=== PATIENT | female | born 1965 | race Caucasian/White ===

== ENCOUNTER 2016-11-16 18:54 | Inpatient (IN) | payer OTHER ==
[~2016-11-16] VITALS: Ht 157.5 cm; Wt 60.0 kg
[~2016-11-16 18:54] MED LIST: ALBU18 IN; BUDE0.253 NEB; FAM20T GT; IPRIH INH; LEVO25TA49 PO; MONT5CHW17 PO
[2016-11-17 04:17] LABS: Basophils # (auto) 0 uL; Basophils % (auto) 0.4 % (0.0-2.0); Eosinophils # (auto) 0.2 uL; Hematocrit 33.3 % (36.0-46.0); Hemoglobin 10.8 g/dL (12.2-16.2); Lymphocytes # (auto) 2.2 uL; Lymphocytes % (auto) 29.2 % (10.0-50.0); Mean Corpuscular Hemoglobin 30.3 pg (28.0-32.0); Mean Corpuscular Hgb Conc. 32.5 g/dL (32.0-36.0); Mean Corpuscular Volume 93.1 fL (80.0-100.0); Mean Platelet Volume 7.9 fL (7.4-10.4); Monocytes # (auto) 0.5 uL; Monocytes % (auto) 6.8 % (0.0-12.0); Neutrophils # (auto) 4.6 uL; Neutrophils % (auto) 61.6 % (37.0-80.0); Platelet Count (auto) 396 10^3/uL (140-450); Red Cell Distribution Width 16.4 % (11.6-16.0); White Blood Cell 7.5 10^3/uL (4.4-10.8)
[2016-11-17 04:28] LABS: Albumin 3.5 g/dL (3.4-5.0); BUN/Creatinine Ratio 31.4; Bilirubin, Total 0.2 mg/dL (0.2-1.0); Calcium 9.7 mg/dL (8.5-10.1); Potassium 3.8 mmol/L (3.5-5.1); Total Protein 7.2 g/dL (6.4-8.2)
[2016-11-17] MEDS ORDERED: LEVOFLOXACIN 500MG 100 ML IV ONE (06:15)
[2016-11-17] MEDS ORDERED: LORazepam 2MG/ML-1ML VIAL IV PRN (08:15)
[2016-11-17] MEDS ORDERED: MORPHINE SULF INJ 2 MG/ML SYRINGE 1ML IV PRN ×2 (08:15)
[2016-11-17] MEDS ORDERED: PANTOPRAZOLE SODIUM 40 MG/10 ML VIAL IV ONE (08:15)
[2016-11-17] MEDS ORDERED: ONDANSETRON HCL 4 MG/2 ML VIAL IV PRN (08:15)
[2016-11-17] MEDS ORDERED: NITROGLYCERIN 0.4 MG SL TAB SL PRN (08:15)
[2016-11-17] MEDS: SODIUM CHLORIDE 0.9% 1,000 ML IV SCH ×3 (08:22→09:33)
[2016-11-17] MEDS ORDERED: metroNIDAZOLE 500MG/100ML 100 ML IV ONE (08:30)
[2016-11-17 08:51] LABS: INR 1.03 (0.9-1.15); Partial Thromboplastin Time 27.9 sec (22.64-33.71); Prothrombin Time 11.1 sec (9.37-12.3)
[2016-11-17 09:01] LABS: Urine Bilirubin Negative (Negative); Urine Blood Negative /uL (Negative); Urine Color Yellow (Yellow); Urine Glucose Normal (Normal); Urine Ketone Negative (Negative); Urine Nitrite Negative (Negative); Urine RBC 1 /hpf (0 - 4); Urine Squamous Epithelial Cell FEW /hpf (<5); Urine Urobilinogen Normal (Negative)
[2016-11-17] MEDS ORDERED: LIDOCAINE VISCOUS 2% 15ML UD ONE (09:31)
[2016-11-17] MEDS ORDERED: SODIUM CHLORIDE LOCK 10 ML ONE (09:31)
[2016-11-17] MEDS ORDERED: diphenhdrAMINE HCL 50 MG/1 ML VL ONE (09:32)
[2016-11-17] MEDS: LEVOFLOXACIN 500MG 100 ML IV SCH (10:06)
[2016-11-17] MEDS: fentaNYL CITRATE 100 MCG/2 ML VL ONE ×2 (10:31→10:37)
[2016-11-17] MEDS: MIDAZOLAM HCL 5 MG/ML-1ML VIAL ONE ×2 (10:31→10:37)
[2016-11-17 11:48] LABS: Hematocrit 32.2 % (36.0-46.0); Hemoglobin 10.6 g/dL (12.2-16.2)
[2016-11-17] MEDS: metroNIDAZOLE 500MG/100ML 100 ML IV SCH ×2 (14:00→23:09)
[2016-11-17 18:32] LABS: Hematocrit 32.2 % (36.0-46.0); Hemoglobin 10.5 g/dL (12.2-16.2)
[2016-11-17] MEDS ORDERED: MONT5CHW17 PO (22:37)
[2016-11-17] MEDS ORDERED: MID10T GT (22:37)
[2016-11-17] MEDS ORDERED: Fibersource Hn 1 Liter GT SCH (22:45)
[2016-11-18] VITALS (8 sets, daily range): BP systolic 103–109; BP diastolic 52–79
[2016-11-18] MEDS ORDERED: Fibersource Hn 1 Liter GT SCH (00:15)
[2016-11-18 00:49] LABS: Hematocrit 33.4 % (36.0-46.0); Hemoglobin 10.8 g/dL (12.2-16.2)
[2016-11-18] MEDS ORDERED: GATI0.5S RIGHTEYE (04:53)
[2016-11-18] MEDS ORDERED: MIDODRINE HCL 10 MG TAB PO SCH (06:00)
[2016-11-18 06:18] LABS: Basophils # (auto) 0 uL; Basophils % (auto) 0.3 % (0.0-2.0); Eosinophils # (auto) 0.1 uL; Eosinophils % (auto) 1.6 % (0.0-7.0); Hematocrit 30.9 % (36.0-46.0); Hemoglobin 10.2 g/dL (12.2-16.2); Lymphocytes # (auto) 1.7 uL; Lymphocytes % (auto) 25.6 % (10.0-50.0); Mean Corpuscular Hemoglobin 30.8 pg (28.0-32.0); Mean Corpuscular Volume 93.1 fL (80.0-100.0); Mean Platelet Volume 8.6 fL (7.4-10.4); Monocytes # (auto) 0.5 uL; Monocytes % (auto) 7.1 % (0.0-12.0); Neutrophils # (auto) 4.4 uL; Neutrophils % (auto) 65.4 % (37.0-80.0); Platelet Count (auto) 341 10^3/uL (140-450); Red Cell Distribution Width 16.6 % (11.6-16.0); White Blood Cell 6.7 10^3/uL (4.4-10.8)
[2016-11-18] MEDS: metroNIDAZOLE 500MG/100ML 100 ML IV SCH (06:18)
[2016-11-18 06:40] LABS: Albumin 3.1 g/dL (3.4-5.0); BUN/Creatinine Ratio 31.3; Bilirubin, Total 0.4 mg/dL (0.2-1.0); Potassium 3.9 mmol/L (3.5-5.1); Total Protein 6.5 g/dL (6.4-8.2)
[2016-11-18] MEDS: ALBUTEROL SULF 2.5 MG/0.5ML(0.5%) NEB SOLN NEB SCH ×3 (06:40→13:30)
[2016-11-18] MEDS: IPRATROPIUM BROM 0.5 MG/2.5ML INH SOL NEB SCH ×3 (06:40→13:30)
[2016-11-18] MEDS ORDERED: LEVOTHYROXINE SODIUM 25 MCG TAB PO SCH (07:00)
[2016-11-18] MEDS ORDERED: SODIUM CHLORIDE 0.9% 1,000 ML IV SCH (08:08)
[2016-11-18] MEDS ORDERED: MONTELUKAST SODIUM 10 MG TAB PO SCH (10:00)
[2016-11-18] MEDS ORDERED: PANTOPRAZOLE SODIUM 40 MG/10 ML VIAL IV SCH (10:00)
[2016-11-18] MEDS: LEVOFLOXACIN 500MG 100 ML IV SCH (11:08)
== END 2016-11-18 17:00 | disposition home or self-care (01) | DRG 377 ==
LOC: ER 18:54 → TELE 18:55 → TELE-EAST 11-17 23:40
PROVIDERS: ADMIT Internal Medicine; ATTEND Internal Medicine
PROC: 0DB68ZX Excision of Stomach, Via Natural or Artificial Opening Endoscopic, Diagnostic (ICD-10-PCS; principal; 2016-11-17 10:20)
DX: K92.2 Gastrointestinal hemorrhage, unspecified (principal); J69.0 Pneumonitis due to inhalation of food and vomit; G93.1 Anoxic brain damage, not elsewhere classified; E03.9 Hypothyroidism, unspecified; G51.0 Bell's palsy; R56.9 Unspecified convulsions; Z86.73 Personal history of transient ischemic attack (TIA), and cerebral infarction without residual deficits; Z82.49 Family history of ischemic heart disease and other diseases of the circulatory system; Z93.1 Gastrostomy status; Z88.5 Allergy status to narcotic agent; Z90.49 Acquired absence of other specified parts of digestive tract
CPT/HCPCS: 36415; 71010; 74176; 76705; 76856; 80053; 80061; 81001; 82150; 82378; 83690; 85014; 85018; 85025; 85045; 85610; 85652; 85730; 86141; 86304; 86850; 86900; 86901; 87040; 87081; 87086; 94640; 96365; 96366; 96367; 96375; C9113; J1956; J2250; J3490

== ENCOUNTER 2017-08-29 10:52 | Observation (INO) | payer OTHER ==
[~2017-08-29] VITALS: Ht 167.6 cm; Wt 68.0 kg
[~2017-08-29 10:52] MED LIST changes: +GATI0.5S RIGHTEYE; +MID10T GT
[2017-08-29] MEDS ORDERED: SODIUM CHLORIDE 0.9% 500 ML IVB ONE (11:40)
[2017-08-29 12:22] LABS: Basophils # (auto) 0 uL; Eosinophils # (auto) 0.1 uL; Monocytes # (auto) 0.3 uL; Monocytes % (auto) 5.2 % (0.0-12.0)
[2017-08-29 12:25] LABS: Basophils % (auto) 0.8 % (0.0-2.0); Eosinophils % (auto) 2.3 % (0.0-7.0); Hematocrit 37.3 % (36.0-46.0); Hemoglobin 12.3 g/dL (12.2-16.2); Lymphocytes # (auto) 1.5 uL; Lymphocytes % (auto) 30.2 % (10.0-50.0); Mean Corpuscular Hemoglobin 29.3 pg (28.0-32.0); Mean Corpuscular Hgb Conc. 32.8 g/dL (32.0-36.0); Mean Corpuscular Volume 89.2 fL (80.0-100.0); Neutrophils % (auto) 61.5 % (37.0-80.0); Platelet Count (auto) 516 10^3/uL (140-450); Red Blood Cells 4.18 10^6/uL (4.0-5.20); Red Cell Distribution Width 14.7 % (11.8-14.3)
[2017-08-29 12:38] LABS: INR 0.95 (0.9-1.15); Partial Thromboplastin Time 28.1 sec (22.64-33.71); Prothrombin Time 10.4 sec (9.37-12.3)
[2017-08-29 12:53] LABS: Urine Bacteria NONE SEEN /hpf (None Seen); Urine Blood Negative /uL (Negative); Urine Specific Gravity 1.005 (1.001-1.035); Urine WBC <1 /hpf (0 - 5)
[2017-08-29 12:56] LABS: Magnesium 2.3 mg/dL (1.6-2.6)
[2017-08-29 12:57] LABS: Blood Alcohol < 3.0 mg/dL (0-5)
[2017-08-29 12:59] LABS: Alcohol, Urine < 3.0 mg/dL (0-5); Amphetamine Screen, Urine NEGATIVE (NEGATIVE); Barbiturate Scree,Urine NEGATIVE (NEGATIVE); Benzodiazephine Screen, Urine NEGATIVE (NEGATIVE); Cannabinoid Screen, Urine NEGATIVE (NEGATIVE); Cocaine Screen, Urine NEGATIVE (NEGATIVE); Opiate Scree,Urine NEGATIVE (NEGATIVE); Phencyclidine Screen, Urine NEGATIVE (NEGATIVE)
[2017-08-29 13:57] LABS: BUN/Creatinine Ratio 17.1; Calcium 9.7 mg/dL (8.5-10.1); Potassium 4.4 mmol/L (3.5-5.1)
[2017-08-29 13:58] LABS: Albumin 3.2 g/dL (3.4-5.0); Bilirubin, Total 0.1 mg/dL (0.2-1.0); Total Protein 7.6 g/dL (6.4-8.2)
[2017-08-29] MEDS ORDERED: LEVETIRACETAM INJ 1,000 MG in D5W 5% 100 ML IV ONE (17:30)
[2017-08-29 21:43] VITALS: BP 99/68
== END 2017-08-29 22:07 | disposition short-term general hospital (02) | DRG 101 ==
LOC: EDBD → ER 10:52 → OVERFLOW 11:42 → ER 22:07
PROVIDERS: ADMIT Family Medicine; ATTEND Family Medicine
DX: R56.9 Unspecified convulsions (principal); Z93.1 Gastrostomy status; E03.9 Hypothyroidism, unspecified; I10 Essential (primary) hypertension; J45.909 Unspecified asthma, uncomplicated; K21.9 Gastro-esophageal reflux disease without esophagitis; Z82.49 Family history of ischemic heart disease and other diseases of the circulatory system; Z90.49 Acquired absence of other specified parts of digestive tract
CPT/HCPCS: 36415; 70450; 71046; 80053; 80307; 80320; 81001; 82962; 83735; 85025; 85610; 85730; 96361; 96365; 99291; G0378; J1953; J7040; 93005; J7060

== ENCOUNTER 2017-10-24 04:28 | Emergency (ER) | payer OTHER ==
[~2017-10-24] VITALS: Ht 152.4 cm; Wt 59.0 kg
[2017-10-24] MEDS ORDERED: DEXTROSE 50% SYRINGE 50 ML IV ONE (05:02)
[2017-10-24] MEDS ORDERED: DEXTROSE (50%) 50ML SYRG IV ONE (05:15)
[2017-10-24 06:46] LABS: Basophils # (auto) 0 uL; Basophils % (auto) 0.2 % (0.0-2.0); Eosinophils # (auto) 0.1 uL; Eosinophils % (auto) 1.5 % (0.0-7.0); Hematocrit 30.1 % (36.0-46.0); Hemoglobin 10.1 g/dL (12.2-16.2); Lymphocytes # (auto) 0.9 uL; Lymphocytes % (auto) 13.9 % (10.0-50.0); Mean Corpuscular Hemoglobin 29.8 pg (28.0-32.0); Mean Corpuscular Hgb Conc. 33.8 g/dL (32.0-36.0); Mean Corpuscular Volume 88.2 fL (80.0-100.0); Monocytes # (auto) 0.3 uL; Neutrophils # (auto) 5.3 uL; Neutrophils % (auto) 79.4 % (37.0-80.0); Nucleated Red Blood Cells % 0.1 %; Platelet Count (auto) 164 10^3/uL (140-450); Red Blood Cells 3.41 10^6/uL (4.0-5.20); Red Cell Distribution Width 15.6 % (11.8-14.3); White Blood Cell 6.7 10^3/uL (4.4-10.8)
[2017-10-24 06:49] LABS: Alanine Aminotransferase 45 U/L (13-56); Albumin 2.6 g/dL (3.4-5.0); Anion Gap 8 (5-15); Aspartate Aminotransferase 30 U/L (15-37); BUN/Creatinine Ratio 25.5; Blood Alcohol < 3.0 mg/dL (0-5); Blood Urea Nitrogen 14 mg/dL (7-18); Calcium 8.5 mg/dL (8.5-10.1); Carbon Dioxide 33 mmol/L (21-32); Chloride 85 mmol/L (98-107); GFR African American 149 mL/min; GFR Non-African American 123 mL/min; Glucose 126 mg/dL (74-106); Potassium 4.1 mmol/L (3.5-5.1); Sodium 126 mmol/L (136-145)
[2017-10-24 06:54] LABS: Alkaline Phosphatase 120 U/L (45-117); Bilirubin, Total 0.2 mg/dL (0.2-1.0); Total Protein 6.7 g/dL (6.4-8.2)
[2017-10-24] MEDS ORDERED: SODIUM CHLORIDE 0.9% 1,000 ML IV ONE (07:30)
[2017-10-24 07:32] LABS: Alcohol, Urine < 3.0 mg/dL (0-5); Amphetamine Screen, Urine NEGATIVE (NEGATIVE); Barbiturate Scree,Urine NEGATIVE (NEGATIVE); Benzodiazephine Screen, Urine NEGATIVE (NEGATIVE); Cannabinoid Screen, Urine NEGATIVE (NEGATIVE); Cocaine Screen, Urine NEGATIVE (NEGATIVE); Opiate Scree,Urine NEGATIVE (NEGATIVE); Phencyclidine Screen, Urine NEGATIVE (NEGATIVE); Urine Amorphous Crystal FEW /hpf (None Seen); Urine Bacteria NONE SEEN /hpf (None Seen); Urine Blood Negative /uL (Negative); Urine WBC 1 /hpf (0 - 5)
[2017-10-24 12:03] VITALS: BP 100/66
== END 2017-10-24 12:45 | disposition home or self-care (01) ==
LOC: EDBD → ER 04:33
DX: G40.909 Epilepsy, unspecified, not intractable, without status epilepticus (principal); Q27.30 Arteriovenous malformation, site unspecified; G80.8 Other cerebral palsy; G51.0 Bell's palsy; K80.20 Calculus of gallbladder without cholecystitis without obstruction; E46 Unspecified protein-calorie malnutrition; E87.1 Hypo-osmolality and hyponatremia; D64.9 Anemia, unspecified; Z93.1 Gastrostomy status; J44.9 Chronic obstructive pulmonary disease, unspecified; E78.5 Hyperlipidemia, unspecified
CPT/HCPCS: 36415; 70450; 80053; 80307; 80320; 81001; 82962; 83735; 83880; 84484; 84702; 85025; 93005; 94761; 96361; 96374; 99285; J7042

== ENCOUNTER 2017-10-26 05:02 | Emergency (ER) | payer OTHER ==
[~2017-10-26] VITALS: Ht 152.4 cm; Wt 54.4 kg
[2017-10-26] MEDS ORDERED: ALBUTEROL SULF 2.5 MG/0.5ML(0.5%) NEB SOLN NEB ONE (06:00)
[2017-10-26] MEDS ORDERED: IPRATROPIUM BROM 0.5 MG/2.5ML INH SOL NEB ONE (06:00)
[2017-10-26 06:33] LABS: Basophils # (auto) 0 uL; Basophils % (auto) 0.4 % (0.0-2.0); Eosinophils # (auto) 0.1 uL; Eosinophils % (auto) 1.5 % (0.0-7.0); Hematocrit 32.4 % (36.0-46.0); Hemoglobin 10.8 g/dL (12.2-16.2); Lymphocytes # (auto) 1.1 uL; Lymphocytes % (auto) 25.1 % (10.0-50.0); Mean Corpuscular Hemoglobin 29.4 pg (28.0-32.0); Mean Corpuscular Hgb Conc. 33.5 g/dL (32.0-36.0); Mean Corpuscular Volume 87.8 fL (80.0-100.0); Monocytes # (auto) 0.3 uL; Monocytes % (auto) 7.1 % (0.0-12.0); Neutrophils # (auto) 2.9 uL; Neutrophils % (auto) 65.9 % (37.0-80.0); Nucleated Red Blood Cells % 0.1 %; Platelet Count (auto) 144 10^3/uL (140-450); Red Blood Cells 3.69 10^6/uL (4.0-5.20); White Blood Cell 4.4 10^3/uL (4.4-10.8)
[2017-10-26 06:52] LABS: Alanine Aminotransferase 45 U/L (13-56); Albumin 2.7 g/dL (3.4-5.0); Anion Gap 6 (5-15); Aspartate Aminotransferase 44 U/L (15-37); BUN/Creatinine Ratio 21.6; Blood Alcohol < 3.0 mg/dL (0-5); Blood Urea Nitrogen 11 mg/dL (7-18); Calcium 8.9 mg/dL (8.5-10.1); Carbon Dioxide 34 mmol/L (21-32); Chloride 86 mmol/L (98-107); GFR African American 161 mL/min; GFR Non-African American 133 mL/min; Glucose 54 mg/dL (74-106); Potassium 4.7 mmol/L (3.5-5.1); Sodium 126 mmol/L (136-145)
[2017-10-26 06:57] LABS: Alkaline Phosphatase 117 U/L (45-117); Bilirubin, Total 0.2 mg/dL (0.2-1.0); Total Protein 7.2 g/dL (6.4-8.2)
[2017-10-26 07:40] LABS: Urine WBC None Seen /hpf (0 - 5)
[2017-10-26 08:00] LABS: Alcohol, Urine < 3.0 mg/dL (0-5); Amphetamine Screen, Urine NEGATIVE (NEGATIVE); Barbiturate Scree,Urine NEGATIVE (NEGATIVE); Benzodiazephine Screen, Urine NEGATIVE (NEGATIVE); Cannabinoid Screen, Urine NEGATIVE (NEGATIVE); Cocaine Screen, Urine NEGATIVE (NEGATIVE); Opiate Scree,Urine NEGATIVE (NEGATIVE); Phencyclidine Screen, Urine NEGATIVE (NEGATIVE)
[2017-10-26 08:09] LABS: Urine Amorphous Crystal MANY /hpf (None Seen); Urine Bacteria NONE SEEN /hpf (None Seen); Urine Blood Negative /uL (Negative); Urine Specific Gravity 1.009 (1.001-1.035)
[2017-10-26] MEDS ORDERED: DEXTROSE (50%) 50ML SYRG IV ONE (09:00)
[2017-10-26] MEDS ORDERED: SODIUM CHLORIDE 0.9% 500 ML IV ONE (09:40)
[2017-10-26] MEDS ORDERED: DEXTROSE 10% 1,000 ML IV ONE (12:30)
[2017-10-26 14:11] VITALS: BP 104/66
== END 2017-10-26 14:40 | disposition short-term general hospital (02) ==
LOC: EDBD 05:02 → ER 05:02 → EDUNIT# 05:02 → ER 14:40
DX: G93.41 Metabolic encephalopathy (principal); J44.9 Chronic obstructive pulmonary disease, unspecified; E78.5 Hyperlipidemia, unspecified; E07.89 Other specified disorders of thyroid; Z90.49 Acquired absence of other specified parts of digestive tract; Z88.6 Allergy status to analgesic agent
CPT/HCPCS: 36415; 70450; 71045; 80053; 80307; 80320; 81001; 82962; 83605; 83735; 84484; 85025; 87040; 93005; 94640; 96361; 96374; 99291; J7030; J7042

== ENCOUNTER 2017-11-05 01:50 | Emergency (ER) | payer OTHER ==
[~2017-11-05] VITALS: Ht 162.6 cm; Wt 45.4 kg
[2017-11-05 04:27] LABS: Basophils # (auto) 0 uL; Basophils % (auto) 0.4 % (0.0-2.0); Eosinophils # (auto) 0.1 uL; Eosinophils % (auto) 1.4 % (0.0-7.0); Hematocrit 27.6 % (36.0-46.0); Hemoglobin 9.1 g/dL (12.2-16.2); Lymphocytes # (auto) 0.9 uL; Lymphocytes % (auto) 12.8 % (10.0-50.0); Mean Corpuscular Hemoglobin 30.1 pg (28.0-32.0); Mean Corpuscular Volume 91.2 fL (80.0-100.0); Monocytes # (auto) 0.5 uL; Monocytes % (auto) 6.8 % (0.0-12.0); Neutrophils # (auto) 5.2 uL; Neutrophils % (auto) 78.6 % (37.0-80.0); Nucleated Red Blood Cells % 0.1 %; Platelet Count (auto) 304 10^3/uL (140-450); Red Blood Cells 3.03 10^6/uL (4.0-5.20); Red Cell Distribution Width 17.9 % (11.8-14.3); White Blood Cell 6.7 10^3/uL (4.4-10.8)
[2017-11-05 04:40] LABS: INR 0.93 (0.9-1.15); Partial Thromboplastin Time 27.3 sec (22.64-33.71); Prothrombin Time 10.1 sec (9.37-12.3)
[2017-11-05] MEDS ORDERED: SODIUM CHLORIDE 0.9% 1,000 ML IV ONE (04:45)
[2017-11-05 04:53] LABS: Albumin 2.7 g/dL (3.4-5.0); BUN/Creatinine Ratio 37.7; Bilirubin, Total 0.2 mg/dL (0.2-1.0); Calcium 8.2 mg/dL (8.5-10.1); Potassium 3.8 mmol/L (3.5-5.1); Total Protein 6.3 g/dL (6.4-8.2)
[2017-11-05] MEDS ORDERED: carBAMazepine 200 MG TAB PO ONE (06:45)
[2017-11-05 06:54] LABS: Urine Blood Negative /uL (Negative); Urine Specific Gravity 1.015 (1.001-1.035); Urine WBC 2 /hpf (0 - 5)
[2017-11-05 06:55] LABS: Urine Bacteria None Seen /hpf (None Seen)
[2017-11-05 07:11] LABS: Alcohol, Urine < 3.0 mg/dL (0-5); Amphetamine Screen, Urine NEGATIVE (NEGATIVE); Barbiturate Scree,Urine NEGATIVE (NEGATIVE); Benzodiazephine Screen, Urine NEGATIVE (NEGATIVE); Cannabinoid Screen, Urine NEGATIVE (NEGATIVE); Cocaine Screen, Urine NEGATIVE (NEGATIVE); Opiate Scree,Urine NEGATIVE (NEGATIVE); Phencyclidine Screen, Urine NEGATIVE (NEGATIVE)
[2017-11-05] MEDS ORDERED: MID10T GT (07:55)
[2017-11-05] MEDS ORDERED: OXCA600T3 GT (07:55)
[2017-11-05] MEDS ORDERED: METR500T GT (07:55)
[2017-11-05] MEDS ORDERED: LEVO25TA6 GT (07:55)
[2017-11-05] MEDS ORDERED: OMEP20CA74 GT (07:55)
[2017-11-05] MEDS ORDERED: MONT10TA34 GT (07:55)
[2017-11-05] MEDS ORDERED: SODIUM CHLORIDE 0.9% 500 ML IV ONE (10:00)
[2017-11-05 10:05] VITALS: BP 95/44
== END 2017-11-05 10:22 | disposition short-term general hospital (02) ==
LOC: EDBD 01:50 → ER 01:56
DX: G40.909 Epilepsy, unspecified, not intractable, without status epilepticus (principal); E86.0 Dehydration; E87.1 Hypo-osmolality and hyponatremia; J44.9 Chronic obstructive pulmonary disease, unspecified; K21.9 Gastro-esophageal reflux disease without esophagitis; E78.5 Hyperlipidemia, unspecified; E07.9 Disorder of thyroid, unspecified; G80.9 Cerebral palsy, unspecified; Z90.49 Acquired absence of other specified parts of digestive tract
CPT/HCPCS: 36415; 80053; 80156; 80307; 81001; 82962; 85025; 85610; 85730; 93005; 96360; 96361; 99285; J7030

== ENCOUNTER 2017-11-11 02:15 | Emergency (ER) | payer OTHER ==
[~2017-11-11] VITALS: Ht 157.5 cm; Wt 61.2 kg
[~2017-11-11 02:15] MED LIST changes: -FAM20T GT; -LEVO25TA49 PO; +LEVO25TA6 GT; +METR500T GT; +MONT10TA34 GT; -MONT5CHW17 PO; +OMEP20CA74 GT; +OXCA600T3 GT
[2017-11-11] MEDS ORDERED: AZIT250T7 PO (05:34)
[2017-11-11] MEDS ORDERED: CEFU500T43 PO (05:34)
[2017-11-11] MEDS ORDERED: LEVE500T22 PO (05:36)
[2017-11-11] MEDS ORDERED: SODIUM CHLORIDE 0.9% 1,000 ML IV ONE (07:24)
[2017-11-11 07:46] LABS: Basophils # (auto) 0 uL; Basophils % (auto) 0.3 % (0.0-2.0); Eosinophils # (auto) 0.1 uL; Eosinophils % (auto) 1.6 % (0.0-7.0); Hematocrit 28.3 % (36.0-46.0); Hemoglobin 9.2 g/dL (12.2-16.2); Lymphocytes # (auto) 0.6 uL; Lymphocytes % (auto) 12.2 % (10.0-50.0); Mean Corpuscular Hemoglobin 30.1 pg (28.0-32.0); Mean Corpuscular Hgb Conc. 32.6 g/dL (32.0-36.0); Mean Corpuscular Volume 92.4 fL (80.0-100.0); Monocytes # (auto) 0.3 uL; Monocytes % (auto) 6.2 % (0.0-12.0); Neutrophils # (auto) 4.3 uL; Neutrophils % (auto) 79.7 % (37.0-80.0); Platelet Count (auto) 315 10^3/uL (140-450); Red Blood Cells 3.06 10^6/uL (4.0-5.20); White Blood Cell 5.3 10^3/uL (4.4-10.8)
[2017-11-11 08:06] LABS: INR 0.95 (0.9-1.15); Prothrombin Time 10.3 sec (9.37-12.3)
[2017-11-11 08:21] LABS: Alanine Aminotransferase 26 U/L (13-56); Albumin 2.5 g/dL (3.4-5.0); Alkaline Phosphatase 72 U/L (45-117); Anion Gap 6 (5-15); Aspartate Aminotransferase 19 U/L (15-37); BUN/Creatinine Ratio 30.2; Bilirubin, Total 0.2 mg/dL (0.2-1.0); Blood Urea Nitrogen 13 mg/dL (7-18); Calcium 8.2 mg/dL (8.5-10.1); Carbon Dioxide 30 mmol/L (21-32); Chloride 96 mmol/L (98-107); GFR African American 198 mL/min; GFR Non-African American 163 mL/min; Glucose 114 mg/dL (74-106); Lipase 90 U/L (73-393); Magnesium 2.4 mg/dL (1.6-2.6); Potassium 3.9 mmol/L (3.5-5.1); Sodium 132 mmol/L (136-145); Total Protein 6.3 g/dL (6.4-8.2)
[2017-11-11 09:28] LABS: Urine Bacteria NONE SEEN /hpf (None Seen); Urine Blood Negative /uL (Negative); Urine Specific Gravity 1.009 (1.001-1.035); Urine WBC 4 /hpf (0 - 5)
[2017-11-11 09:47] LABS: Alcohol, Urine < 3.0 mg/dL (0-5); Amphetamine Screen, Urine NEGATIVE (NEGATIVE); Barbiturate Scree,Urine NEGATIVE (NEGATIVE); Benzodiazephine Screen, Urine NEGATIVE (NEGATIVE); Cannabinoid Screen, Urine NEGATIVE (NEGATIVE); Cocaine Screen, Urine NEGATIVE (NEGATIVE); Opiate Scree,Urine NEGATIVE (NEGATIVE); Phencyclidine Screen, Urine NEGATIVE (NEGATIVE)
[2017-11-11] MEDS ORDERED: ONDANSETRON HCL 4 MG/2 ML VIAL IV ONE (10:15)
[2017-11-11] MEDS ORDERED: cefTRIAXone 1GM/10ml IVPUSH 10 ML IV ONE (13:30)
[2017-11-11] MEDS ORDERED: LEVETIRACETAM INJ 1,000 MG in D5W 5% 100 ML IV ONE (13:30)
[2017-11-11] MEDS ORDERED: IPRATROPIUM BROM 0.5 MG/2.5ML INH SOL NEB ONE (13:30)
[2017-11-11] MEDS ORDERED: ALBUTEROL SULF 2.5 MG/0.5ML(0.5%) NEB SOLN NEB ONE (13:30)
[2017-11-11] MEDS ORDERED: SODIUM CHLORIDE 0.9% 500 ML IV ONE (16:30)
[2017-11-11 18:25] VITALS: BP 87/57
== END 2017-11-11 18:48 | disposition short-term general hospital (02) ==
LOC: EDBD 02:15 → ER 02:21
DX: T68.XXXA Hypothermia, initial encounter (principal); J18.9 Pneumonia, unspecified organism; D64.9 Anemia, unspecified; E43 Unspecified severe protein-calorie malnutrition; G40.909 Epilepsy, unspecified, not intractable, without status epilepticus; R53.83 Other fatigue; R53.2 Functional quadriplegia; K21.9 Gastro-esophageal reflux disease without esophagitis; J44.9 Chronic obstructive pulmonary disease, unspecified; E78.5 Hyperlipidemia, unspecified; E07.9 Disorder of thyroid, unspecified; G51.0 Bell's palsy; H40.9 Unspecified glaucoma; E03.9 Hypothyroidism, unspecified; Y99.8 Other external cause status; Y93.89 Activity, other specified; Y92.89 Other specified places as the place of occurrence of the external cause
CPT/HCPCS: 36415; 51702; 70450; 71045; 80053; 80307; 81001; 82962; 83605; 83690; 83735; 83880; 84443; 84484; 85025; 85610; 85730; 87040; 93005; 94640; 94761; 96361; 96365; 96375; 99285; J1953; J2405; J7030; J7060

== ENCOUNTER 2017-12-01 06:24 | Emergency (ER) | payer OTHER ==
[~2017-12-01] VITALS: Ht 157.5 cm; Wt 68.0 kg
[~2017-12-01 06:24] MED LIST changes: +AZIT250T7 PO; +CEFU500T43 PO; +LEVE500T22 PO
[2017-12-01] MEDS ORDERED: SODIUM CHLORIDE 0.9% 1,000 ML IV ONE (08:07)
[2017-12-01 08:36] LABS: Basophils # (auto) 0 uL; Basophils % (auto) 0.4 % (0.0-2.0); Eosinophils # (auto) 0.1 uL; Eosinophils % (auto) 2.4 % (0.0-7.0); Hematocrit 34.2 % (36.0-46.0); Hemoglobin 11.1 g/dL (12.2-16.2); Lymphocytes # (auto) 0.8 uL; Lymphocytes % (auto) 14.4 % (10.0-50.0); Mean Corpuscular Hemoglobin 30.5 pg (28.0-32.0); Mean Corpuscular Hgb Conc. 32.4 g/dL (32.0-36.0); Mean Corpuscular Volume 94.1 fL (80.0-100.0); Monocytes # (auto) 0.4 uL; Monocytes % (auto) 6.7 % (0.0-12.0); Neutrophils # (auto) 4.3 uL; Neutrophils % (auto) 76.1 % (37.0-80.0); Platelet Count (auto) 302 10^3/uL (140-450); Red Blood Cells 3.63 10^6/uL (4.0-5.20); Red Cell Distribution Width 17.1 % (11.8-14.3); White Blood Cell 5.6 10^3/uL (4.4-10.8)
[2017-12-01 08:57] LABS: Albumin 3.1 g/dL (3.4-5.0); Calcium 9.3 mg/dL (8.5-10.1); Magnesium 2.3 mg/dL (1.6-2.6); Potassium 3.8 mmol/L (3.5-5.1)
[2017-12-01 08:59] LABS: BUN/Creatinine Ratio 41.1; Bilirubin, Total 0.2 mg/dL (0.2-1.0); Total Protein 7.2 g/dL (6.4-8.2)
[2017-12-01 09:23] LABS: Urine Bacteria MOD /hpf (None Seen); Urine Blood Negative /uL (Negative); Urine Specific Gravity 1.009 (1.001-1.035); Urine WBC 14 /hpf (0 - 5)
[2017-12-01] MEDS ORDERED: cefTRIAXone 1GM/10ml IVPUSH 10 ML IV ONE (11:45)
[2017-12-01] MEDS ORDERED: PROMETHAZINE HCL 25 MG/ML 1ML IV PRN (12:00)
[2017-12-01] MEDS ORDERED: ALBUTEROL SULF 2.5 MG/0.5ML(0.5%) NEB SOLN NEB PRN (12:00)
[2017-12-01] MEDS ORDERED: LORazepam 0.5 MG TAB PO PRN (12:00)
[2017-12-01] MEDS ORDERED: HYDROcodone-ACET 5/325MG TAB GT PRN (12:00)
[2017-12-01] MEDS ORDERED: DEXTROSE (50%) 50ML SYRG IV PRN (12:00)
[2017-12-01] MEDS ORDERED: MORPHINE SULFATE 8mg/ml INJ SDV IV PRN ×2 (12:00)
[2017-12-01] MEDS ORDERED: TEMAZEPAM 15 MG CAP PO PRN (12:00)
[2017-12-01] MEDS ORDERED: D5W/SOD CHLO 0.9% 1,000 ML IV SCH (12:00)
[2017-12-01] MEDS ORDERED: ACCU-CHEK COMFORT CURVE STRIP VI SCH (12:00)
[2017-12-01] MEDS ORDERED: ALBUTEROL SULF 2.5 MG/0.5ML(0.5%) NEB SOLN NEB SCH (12:00)
[2017-12-01] MEDS ORDERED: NITROGLYCERIN 0.4 MG SL TAB SL PRN (12:00)
[2017-12-01] MEDS ORDERED: ACETAMINOPHEN 500 MG TAB PO PRN (12:00)
[2017-12-01] MEDS ORDERED: LACTULOSE 20Gm/30ML SOLN PO PRN (12:00)
[2017-12-01] MEDS ORDERED: IOHEXOL 350 MG/ML 100ML IJ ONE (12:01)
[2017-12-01] MEDS ORDERED: AZITHROMYCIN 500MG/ 250ML 250 ML IV SCH (12:15)
[2017-12-01] MEDS ORDERED: TEMAZEPAM 15 MG CAP GT PRN (12:15)
[2017-12-01] MEDS ORDERED: ACETAMINOPHEN 650 mg PER 20 mL UD GT PRN (12:15)
[2017-12-01] MEDS ORDERED: LORazepam 0.5 MG TAB GT PRN (12:15)
[2017-12-01] MEDS ORDERED: MONTELUKAST SODIUM 10 MG TAB GT PRN (12:15)
[2017-12-01] MEDS ORDERED: LACTULOSE 20Gm/30ML SOLN GT PRN (12:15)
[2017-12-01] MEDS ORDERED: ASPirin 81 mg TAB GT ONE (12:45)
[2017-12-01] MEDS ORDERED: ENOXAPARIN SOD 40 MG/0.4 ML SYRINGE SC SCH (12:45)
[2017-12-01] MEDS ORDERED: MIDODRINE HCL 10 MG TAB GT SCH (14:00)
[2017-12-01 14:33] LABS: Alcohol, Urine < 3.0 mg/dL (0-5); Amphetamine Screen, Urine NEGATIVE (NEGATIVE); Barbiturate Scree,Urine NEGATIVE (NEGATIVE); Benzodiazephine Screen, Urine NEGATIVE (NEGATIVE); Cannabinoid Screen, Urine NEGATIVE (NEGATIVE); Cocaine Screen, Urine NEGATIVE (NEGATIVE); Opiate Scree,Urine NEGATIVE (NEGATIVE); Phencyclidine Screen, Urine NEGATIVE (NEGATIVE)
[2017-12-01 15:28] VITALS: BP 117/75
[2017-12-01] MEDS ORDERED: GATIFLOXACIN RIGHTEYE SCH (18:00)
[2017-12-01] MEDS ORDERED: BUDESONIDE NEB SCH (22:00)
[2017-12-01] MEDS ORDERED: OXcarbazepine 300 MG TAB GT SCH (22:00)
[2017-12-01] MEDS ORDERED: BUDESONIDE (INHALATION) 0.5 MG/2 ML NEB NEB SCH (22:00)
[2017-12-01] MEDS ORDERED: LEVETIRACETAM 500 MG TAB PO SCH (22:00)
[2017-12-01] MEDS ORDERED: LEVETIRACETAM 500 MG/5ML ORAL SOLN UD GT SCH (22:00)
[2017-12-01] MEDS ORDERED: OXCARBAZEPINE GT SCH (22:00)
[2017-12-01] MEDS ORDERED: ATORVASTATIN 20 MG TAB GT SCH (22:00)
[2017-12-02] MEDS ORDERED: cefTRIAXone 1GM/10ml IVPUSH 10 ML IV SCH (09:00)
[2017-12-02] MEDS ORDERED: ASPirin 81 mg TAB GT SCH (10:00)
[2017-12-02] MEDS ORDERED: LEVOTHYROXINE SODIUM 25 MCG TAB GT SCH (10:00)
[2017-12-02] MEDS ORDERED: OMEPRAZOLE 20MG/10ML ORAL SUSP GT SCH (10:00)
[2017-12-03 09:33] LABS: Folate (Folic Acid) 18.43 ng/mL (5.38-24)
== END 2017-12-01 15:46 | disposition short-term general hospital (02) ==
LOC: EDBD 06:24 → ER 06:27 → TELE 06:28 → UNDOADMIN 06:28 → ER 15:46
DX: R41.82 Altered mental status, unspecified (principal); J18.9 Pneumonia, unspecified organism; N39.0 Urinary tract infection, site not specified; E46 Unspecified protein-calorie malnutrition; T85.79XA Infection and inflammatory reaction due to other internal prosthetic devices, implants and grafts, initial encounter; G40.909 Epilepsy, unspecified, not intractable, without status epilepticus; J45.909 Unspecified asthma, uncomplicated; K21.9 Gastro-esophageal reflux disease without esophagitis; E78.00 Pure hypercholesterolemia, unspecified; Z90.49 Acquired absence of other specified parts of digestive tract; Z87.74 Personal history of (corrected) congenital malformations of heart and circulatory system; Z79.2 Long term (current) use of antibiotics; Z79.899 Other long term (current) drug therapy; Z88.5 Allergy status to narcotic agent
CPT/HCPCS: 36415; 70450; 71046; 71275; 80053; 80307; 81001; 82550; 82607; 82746; 82962; 83036; 83605; 83735; 84443; 84484; 85025; 85652; 87040; 87086; 93005; 94640; 96361; 96365; 96366; 96372; 96375; J7042

== ENCOUNTER 2017-12-20 02:15 | Emergency (ER) | payer OTHER ==
[~2017-12-20] VITALS: Ht 157.5 cm; Wt 68.0 kg
[2017-12-20 03:29] LABS: Basophils # (auto) 0 uL; Basophils % (auto) 0.8 % (0.0-2.0); Eosinophils # (auto) 0.1 uL; Eosinophils % (auto) 1.9 % (0.0-7.0); Hematocrit 34.2 % (36.0-46.0); Lymphocytes # (auto) 1.5 uL; Lymphocytes % (auto) 28.2 % (10.0-50.0); Mean Corpuscular Hemoglobin 30.1 pg (28.0-32.0); Mean Corpuscular Hgb Conc. 32.1 g/dL (32.0-36.0); Mean Corpuscular Volume 93.9 fL (80.0-100.0); Monocytes # (auto) 0.4 uL; Neutrophils # (auto) 3.2 uL; Neutrophils % (auto) 61.1 % (37.0-80.0); Platelet Count (auto) 280 10^3/uL (140-450); Red Blood Cells 3.64 10^6/uL (4.0-5.20); Red Cell Distribution Width 16.4 % (11.8-14.3); White Blood Cell 5.2 10^3/uL (4.4-10.8)
[2017-12-20] MEDS ORDERED: cefTRIAXone 1GM/10ml IVPUSH 10 ML IV ONE (03:30)
[2017-12-20] MEDS ORDERED: SODIUM CHLORIDE 0.9% 1,000 ML IV ONE (03:30)
[2017-12-20 03:39] LABS: Albumin 3.1 g/dL (3.4-5.0); BUN/Creatinine Ratio 39.7; Calcium 9.4 mg/dL (8.5-10.1); Potassium 4.1 mmol/L (3.5-5.1)
[2017-12-20 03:42] LABS: Bilirubin, Total 0.2 mg/dL (0.2-1.0); Total Protein 7.5 g/dL (6.4-8.2)
[2017-12-20 03:47] LABS: Urine Bacteria FEW /hpf (None Seen); Urine Blood Negative /uL (Negative); Urine Specific Gravity 1.006 (1.001-1.035); Urine WBC 29 /hpf (0 - 5)
[2017-12-20] MEDS ORDERED: DEXTROSE (50%) 50ML SYRG IV ONE (04:15)
[2017-12-20 07:12] VITALS: BP 95/71
== END 2017-12-20 07:36 | disposition home or self-care (01) ==
LOC: EDBD 02:15 → ER 02:15
DX: N39.0 Urinary tract infection, site not specified (principal); E86.0 Dehydration; E16.2 Hypoglycemia, unspecified; K21.9 Gastro-esophageal reflux disease without esophagitis; J44.9 Chronic obstructive pulmonary disease, unspecified; J45.909 Unspecified asthma, uncomplicated; E78.5 Hyperlipidemia, unspecified; E07.9 Disorder of thyroid, unspecified; Z90.49 Acquired absence of other specified parts of digestive tract; Z88.6 Allergy status to analgesic agent; Z79.899 Other long term (current) drug therapy
CPT/HCPCS: 36415; 71045; 80053; 81001; 83605; 85025; 87040; 96361; 96374; 96375; 99285; J7030; J7042

== ENCOUNTER 2018-08-27 04:18 | Inpatient (IN) | payer OTHER ==
[2018-08-27] VITALS: BP 87/53
[~2018-08-27] VITALS: Ht 157.5 cm; Wt 77.5 kg
[~2018-08-27 04:18] MED LIST changes: +LEVE500T22 PEG; -LEVE500T22 PO
[2018-08-27 06:01] LABS: Basophils # (auto) 0.1 uL; Basophils % (auto) 1.9 % (0.0-2.0); Eosinophils # (auto) 0.1 uL; Eosinophils % (auto) 1.3 % (0.0-7.0); Hemoglobin 10.6 g/dL (12.2-16.2); Lymphocytes # (auto) 0.5 uL; Lymphocytes % (auto) 11.1 % (10.0-50.0); Mean Corpuscular Hemoglobin 29.9 pg (28.0-32.0); Mean Corpuscular Hgb Conc. 32.1 g/dL (32.0-36.0); Mean Corpuscular Volume 93.1 fL (80.0-100.0); Monocytes # (auto) 0.2 uL; Monocytes % (auto) 4.8 % (0.0-12.0); Neutrophils # (auto) 3.9 uL; Neutrophils % (auto) 80.9 % (37.0-80.0); Nucleated Red Blood Cells % 0.1 %; Platelet Count (auto) 296 10^3/uL (140-450); Red Blood Cells 3.55 10^6/uL (4.0-5.20); White Blood Cell 4.8 10^3/uL (4.4-10.8)
[2018-08-27 06:05] LABS: Urine Pregnacy Test Negative (Negative)
[2018-08-27 06:09] LABS: Urine Bacteria FEW /hpf (None Seen); Urine Blood Negative /uL (Negative); Urine Specific Gravity 1.009 (1.001-1.035); Urine WBC 14 /hpf (0 - 5)
[2018-08-27 06:16] LABS: INR 0.91 (0.9-1.15); Partial Thromboplastin Time 31.6 sec (23.78-33.04); Prothrombin Time 9.8 sec (9.27-12.13)
[2018-08-27 06:21] LABS: Alanine Aminotransferase 76 U/L (13-56); Anion Gap 5 (5-15); Aspartate Aminotransferase 49 U/L (15-37); Blood Alcohol < 3.0 mg/dL (0-5); Blood Urea Nitrogen 22 mg/dL (7-18); Calcium 8.7 mg/dL (8.5-10.1); Carbon Dioxide 37 mmol/L (21-32); Chloride 99 mmol/L (98-107); GFR African American 148 mL/min; GFR Non-African American 122 mL/min; Glucose 59 mg/dL (74-106); Magnesium 2.9 mg/dL (1.6-2.6); Potassium 4.7 mmol/L (3.5-5.1); Sodium 141 mmol/L (136-145)
[2018-08-27 06:24] LABS: Alcohol, Urine < 3.0 mg/dL (0-5); Amphetamine Screen, Urine NEGATIVE (NEGATIVE); Barbiturate Scree,Urine NEGATIVE (NEGATIVE); Benzodiazephine Screen, Urine NEGATIVE (NEGATIVE); Cannabinoid Screen, Urine NEGATIVE (NEGATIVE); Cocaine Screen, Urine NEGATIVE (NEGATIVE); Opiate Scree,Urine NEGATIVE (NEGATIVE); Phencyclidine Screen, Urine NEGATIVE (NEGATIVE)
[2018-08-27 06:28] LABS: Alkaline Phosphatase 108 U/L (45-117); Bilirubin, Total 0.2 mg/dL (0.2-1.0); Total Protein 7.6 g/dL (6.4-8.2)
[2018-08-27] MEDS ORDERED: VANCOMYCIN 1GM/250ML 250 ML IV ONE (07:15)
[2018-08-27] MEDS ORDERED: PIPERACILLIN-TAZOB 3.375GM 100 ML IV ONE (07:15)
[2018-08-27] MEDS ORDERED: DEXTROSE 50% SYRINGE 50 ML IV ONE (07:35)
[2018-08-27] MEDS ORDERED: DEXTROSE (50%) 50ML SYRG IV ONE (07:45)
[2018-08-27] MEDS: DEXTROSE 10% 1,000 ML IV SCH ×2 (07:45→17:56)
[2018-08-27] MEDS ORDERED: CLINDAMYCIN 600MG IV 50 ML IV ONE (08:30)
[2018-08-27] MEDS ORDERED: MID10T GT (09:54)
[2018-08-27] MEDS: BUDESONIDE (INHALATION) 0.5 MG/2 ML NEB NEB SCH ×2 (10:00→18:00)
[2018-08-27] MEDS ORDERED: ACETAMINOPHEN 500 MG TAB PO PRN (10:00)
[2018-08-27] MEDS ORDERED: LEVETIRACETAM 500 MG TAB PO SCH (10:00)
[2018-08-27] MEDS ORDERED: MONTELUKAST SODIUM 10 MG TAB GT PRN (10:00)
[2018-08-27] MEDS ORDERED: NITROGLYCERIN 0.4 MG SL TAB SL PRN (10:00)
[2018-08-27] MEDS ORDERED: Jevity 1.2 Cal/Fiber 1 Liter GT SCH (10:00)
[2018-08-27] MEDS ORDERED: FUROSEMIDE 20 MG/2 ML VIAL IV ONE (10:00)
[2018-08-27] MEDS ORDERED: MORPHINE SULFATE 10 MG/ML INJ 1ML SDV IV PRN ×2 (10:00)
[2018-08-27] MEDS ORDERED: traMADol HCL 50 MG TAB GT PRN (10:00)
[2018-08-27] MEDS ORDERED: MIDODRINE HCL 10 MG TAB PO ONE (11:15)
[2018-08-27 11:20] VITALS: BP 92/42
[2018-08-27] MEDS: ALBUTEROL SULF 2.5 MG/0.5ML(0.5%) NEB SOLN NEB SCH ×3 (12:07→23:57)
[2018-08-27] MEDS: IPRATROPIUM BROM 0.5 MG/2.5ML INH SOL NEB SCH ×3 (12:07→23:57)
[2018-08-27] MEDS: PANTOPRAZOLE 40 MG/10 ML VIAL IV SCH (12:40)
--- NOTE | 2018-08-27 12:44 | NUR ---
I received a call from ER letting me know that [facility] told them that they were on their way to pick and shovel man patient to transfer to [facility]-she told me that Miguelito Hooper had stated patient is not stable for transfer to [facility]. I asked her to contact him to dictate a progress note that states patient is not stable for transfer to [facility] if that is the case. I called [facility] and they stated that our ER MD had told their ER MD that patient IS stable transfer to [facility]-I let them know that there IS an admit order for this patient and that there is no order to transfer to [facility]. According to ER nurse Friedman, she said Dr. Hauser told them that patient is NOT stable for transfer to [facility]. Addendum: 08/27/18 at 1256 by Roro Baker RN I spoke to technology officermary jo Almaraz (not nurse Friedman) and nurse Cooper.
--- NOTE | 2018-08-27 13:04 | NUR ---
I faxed clinical information to [facility] including ER notes, H&P, vitals, xrays, labs and medication list.
[2018-08-27] MEDS: MIDODRINE HCL 10 MG TAB GT SCH ×2 (13:29→21:31)
[2018-08-27] MEDS: LEVETIRACETAM 500 MG/5ML ORAL SOLN UD GT SCH ×2 (13:29→22:20)
[2018-08-27] MEDS: PIPERACILLIN-TAZOB 3.375GM 100 ML IV SCH ×2 (15:01→20:15)
[2018-08-27] MEDS ORDERED: ARTIFICIAL TEARS 15ml EACHEYE PRN (16:15)
[2018-08-27] MEDS ORDERED: LORazepam 2MG/ML-1ML VIAL ONE (18:43)
[2018-08-27] MEDS: LORazepam 2MG/ML-1ML VIAL IV PRN ×2 (18:45→23:16)
[2018-08-27] MEDS ORDERED: DEXTROSE (50%) 50ML SYRG IV PRN (19:00)
[2018-08-27] MEDS: ACCU-CHEK COMFORT CURVE STRIP VI SCH ×2 (20:05→23:49)
[2018-08-27 20:20] VITALS: BP 79/44
--- NOTE | 2018-08-27 21:57 | NUR ---
Admit to [facility] admitted to [facility] via gurney on cardiac rehabilitation specialist, and portable 02. Patient transfered to bed, connected to unit monitoring and bipap, and weighed by bedscale. Patient oriented to Emilie elizabeth RN, unit, room, bed. All questions and concerns addressed to Albino, verbalized understanding.Patient aphasic, non verbal and not following commands. Left eye open and tracking , right eye covered with eye patch dt pt unable to close eye per .Peg tube in place to left upper quadrant with no residual. Larson catheter draining clear yellow urine. Patient turned to assess skin integrity and noted to have large soft brown formed bowel movement. Patient's perineal area cleansed with warm soapy water, noted to have blanchable redness to sacrum, and zguard cream applied. Patient repositioned for comfort. Right AC 20G infusing D10 at 100mls/hr, left shoulder 22g flushed and patent. Albino updated on visiting hours. NOTE: Will continue to monitor.
--- NOTE | 2018-08-27 22:05 | NUR ---
SZ PRECAUTIONS IN PLACE SUCTION AT BEDSIDE
[2018-08-27 23:00] VITALS: BP 102/70
--- NOTE | 2018-08-27 23:16 | NUR ---
ATIVAN GIVEN PER PATIENT HAVING JERKING MOVEMENTS AND IS THE START OF A SZ PATIENT NOTED TO HAVE JERKING MOVEMENT TO UPPER EXTREMITIES , ATIVAN GIVEN PER ORDERS CONTINUE TO MONITOR
--- NOTE | 2018-08-28 01:46 | NUR ---
TEMP: 95.4 [address] IN PL[address] CONTINUE TO MONITOR
[2018-08-28] MEDS: PIPERACILLIN-TAZOB 3.375GM 100 ML IV SCH ×4 (02:09→20:47)
[2018-08-28] MEDS: ACCU-CHEK COMFORT CURVE STRIP VI SCH ×6 (03:57→23:10)
[2018-08-28 04:00] VITALS: BP 83/51
[2018-08-28] MEDS ORDERED: CEFP200T15 PO (04:01)
[2018-08-28 04:05] VITALS: BP 83/51
--- NOTE | 2018-08-28 04:58 | NUR ---
FEEDINGS RESUMED DT PATIENT NOT HAVING ANY SZ ACTIVITY AND NO RESIDUAL IN PEG TUBE FEEDINGS AT 25ML/HR
--- NOTE | 2018-08-28 05:01 | NUR ---
AM CARE PATIENT GIVEN COMPLETE BED BATH USING WARM SOAPY WATER:SKIN INTEGRITY REASSESSED AT THIS TIME MOISTURE RELATED REDNESS NOTED TO BILATERAL UNDER BREAST AREA, AREA CLEANSED, DRIED AND HYDRAGUARD CREAM PLACED. PILLOW CASE UNDER BREAST AREA PLACED TO KEEP AREA DRY. BLANCHABLE REDNESS TO PERINEAL AREA NOTED, ZGUARD CREAM PLACED. PATIENT REPOSITIONED FOR COMFORT AND RELIEF OF PRESSURE. DENISA BENAVIDES CONTINUED: NEW TEMP 97.4 AXILLARY.
[2018-08-28] MEDS: MIDODRINE HCL 10 MG TAB GT SCH ×3 (06:21→22:23)
[2018-08-28] MEDS: DEXTROSE 10% 1,000 ML IV SCH ×2 (06:21→15:10)
[2018-08-28 06:37] LABS: BUN/Creatinine Ratio 23.1; Calcium 8.5 mg/dL (8.5-10.1); Magnesium 2.8 mg/dL (1.6-2.6); Potassium 3.6 mmol/L (3.5-5.1)
[2018-08-28 06:40] LABS: INR 0.94 (0.9-1.15); Partial Thromboplastin Time 29.9 sec (23.78-33.04); Prothrombin Time 10.1 sec (9.27-12.13)
[2018-08-28 06:43] LABS: Basophils # (auto) 0 uL; Basophils % (auto) 0.1 % (0.0-2.0); Eosinophils # (auto) 0.1 uL; Eosinophils % (auto) 1.4 % (0.0-7.0); Hematocrit 28.3 % (36.0-46.0); Hemoglobin 9.2 g/dL (12.2-16.2); Lymphocytes # (auto) 0.8 uL; Lymphocytes % (auto) 20.6 % (10.0-50.0); Mean Corpuscular Hemoglobin 30.1 pg (28.0-32.0); Mean Corpuscular Hgb Conc. 32.7 g/dL (32.0-36.0); Mean Corpuscular Volume 92.2 fL (80.0-100.0); Monocytes # (auto) 0.3 uL; Monocytes % (auto) 7.9 % (0.0-12.0); Neutrophils # (auto) 2.8 uL; Nucleated Red Blood Cells % 0.1 %; Platelet Count (auto) 287 10^3/uL (140-450); Red Blood Cells 3.06 10^6/uL (4.0-5.20); Red Cell Distribution Width 16.7 % (11.8-14.3)
[2018-08-28] MEDS: ALBUTEROL SULF 2.5 MG/0.5ML(0.5%) NEB SOLN NEB SCH ×3 (06:45→18:55)
[2018-08-28] MEDS: IPRATROPIUM BROM 0.5 MG/2.5ML INH SOL NEB SCH ×3 (06:45→18:55)
[2018-08-28] MEDS: BUDESONIDE (INHALATION) 0.5 MG/2 ML NEB NEB SCH ×2 (06:45→18:55)
[2018-08-28 08:00] VITALS: BP 84/43
--- NOTE | 2018-08-28 08:00 | NUR ---
Opening Shift Note Assumed care of patient @ 0730, patient non-verbal but able to make needs known through head gestures. No S/S of distress/SOB or pain, patient oxygen saturation 98% @ 7LPM oxygen via face mask. See interventions for complete physical assessment. Jevity running at 25mls/hr via G-tube, with 10mls residual feeding, increased feeding to 30ml/hr. Bed locked on low position, side rails up x2, bed alarms on at all times, call beckford within reach, instructed on POC and to call for assist PRN, will continue to monitor for changes Q1hr and PRN.
[2018-08-28] MEDS: PANTOPRAZOLE 40 MG/10 ML VIAL IV SCH (09:26)
[2018-08-28] MEDS: LEVOTHYROXINE SODIUM 25 MCG TAB GT SCH (09:26)
[2018-08-28] MEDS: LEVETIRACETAM 500 MG/5ML ORAL SOLN UD GT SCH ×2 (10:32→22:22)
[2018-08-28 12:00] VITALS: BP 94/47
--- NOTE | 2018-08-28 15:30 | NUR ---
IV removal IV on LT shoulder puffy, discontinued with sterile technique, catheter fully intact. Pressure dressing applied to site. Patient tolerated procedure well.
--- NOTE | 2018-08-28 15:46 | NUR ---
NUTRITION CONSULT/ASSESSMENT NOTES Please refer to link notes of nutrition screen form filed under the intervention section of the plan of care for further details. Est. Needs: 1450 kcal to 1800 kcal (20-25 kcal/kgBW), 58 gms to 72 gms pro (0.8-1.0 gms/kgBW). Will continue to monitor pertinent labs and reassess nutrient need prn Rec.: Consider gradual increase on feeding rate of Jevity 1.2 Pradeep to 55 m/hr goal rate as tolerated when medically appropriate. Thank you for this consult. Addendum: 08/28/18 at [address] Amended: Links added.
--- NOTE | 2018-08-28 15:54 | NUR ---
WOUND CARE NOTE: Wound care in to see patient per wound care request regarding low Dex score of 12,putting patient to high risk for skin breakdown. Patient is 52 years old female with admitting diagnosis of Aspiration Pneumonia. Patient is resting in SDU bed in Rm. 264. Patient is awake and on O2 mask. She needs assistance in turning and repositioning. Patient appears to be in no pain using [place] Faces Pain Scale. Skin assessment done with the assistance of patient's nurse, RICH Al. No wound noted, no non-blanchable redness over bony prominences noted. Repositioned patient for comfort facing her Rt side, redistributed pressure points with pillows. Patient tolerated well. Bed in lowest position, at bedside. RECOMMENDATION: BID/PRN cleaning and application of barrier cream to sacral and perineum as preventative per MD order, dietary consult for low Dex score, frequent turning and repositioning schedule as condition permits, redistribute pressure points with pillows,continue monitoring by wound care while patient is hospitalized. Addendum: 08/28/18 at 1837 by Nayana Piedra RN Amended: Links added.
[2018-08-28 16:00] VITALS: BP 93/56
--- NOTE | 2018-08-28 18:49 | NUR ---
RT NOTE PT WAS SEEN BY RT FOR HHN TX. PT TOLERATES WELL VIA MASK. NO ADVERSE REACTION NOTED. PT FOUND ON SIMPLE MASK AT 5L PRE TX. INCREASED TO 6L PER MODALITY STANDARD. PT COUGHED UP LARGE RETURN WITH TX. VISITOR AT BEDSIDE SUCTIONED PT ORALLY. CONT ORDERED Addendum: 08/28/18 at 1913 by Sita Santiago RT Amended: Links added.
--- NOTE | 2018-08-28 19:00 | NUR ---
Received call from Bisi narvaez [facility] inquiring if patient is stable for transfer. Informed her that we are still awaiting rounds from . Please call [facility] at telephone number [phone] once patient is ready for transfer.
--- NOTE | 2018-08-28 19:23 | NUR ---
Dr Denson at bedside, updated on patient's status. Made aware this RN received a call from [place] inquiring if patient is stable to transfer. Will carry out new orders.
--- NOTE | 2018-08-28 19:49 | NUR ---
RT NOTE PT WAS SEEN BY RT FOR FIO2 TITRATION PER DR POOLE REQUEST. DR RIOS REQUESTS O2 MODALITY TO CHANGE AND THAT PT CAN SAT BETWEEN 92-95%. PT PLACED ON 3L NASAL CANNULA AT THIS TIME. SATS ARE 97-98% AT THIS TIME. WILL CONT TO MONITOR
--- NOTE | 2018-08-28 21:38 | NUR ---
RT NOTE PLACED PT ON BIPAP #RPX [id number] ON STATED SETTINGS WITH MEDIUM MASK AT THIS TIME. LIQUI-CELL IN PLACE. BIPAP IS PLUGGED TO RED OUTLET. ALARMS ARE ON AND AUDIBLE AT NURSES STATION. AMBU BAG AT BEDSIDE. PT IS ON CONT BEDSIDE MONITORING PER PROTOCOL. FAMILY MEMBER AND RN KIRAN AT BEDSIDE. PT APPEARS TO TOLERATE FAIRLY AT THIS TIME. WILL CONT TO MONITOR. CONT ORDERED. POX 97% Addendum: 08/28/18 at 2323 by Sita Santiago RT Amended: Links added.
[2018-08-29] VITALS: BP 104/74
[2018-08-29] MEDS: methylPREDNISolone SOD SUCC 40 MG/ML VL IV SCH ×4 (00:25→18:15)
--- NOTE | 2018-08-29 00:29 | NUR ---
RT NOTE ROUTINE BIPAP CHECK DONE. PT ON BIPAP #RPX [id number] ON STATED SETTINGS WITH MEDIUM MASK AT THIS TIME. LIQUI-CELL IN PLACE. BIPAP IS PLUGGED TO RED OUTLET. ALARMS ARE ON AND AUDIBLE AT NURSES STATION. AMBU BAG AT BEDSIDE. PT IS ON CONT BEDSIDE MONITORING PER PROTOCOL. PT IS SLEEPING AND APPEARS TO TOLERATE WELL AT THIS TIME. WILL CONT TO MONITOR. CONT ORDERED. POX 96% Addendum: 08/29/18 at 0047 by Sita Santiago RT Amended: Links added.
[2018-08-29] MEDS: PIPERACILLIN-TAZOB 3.375GM 100 ML IV SCH ×4 (03:00→20:00)
[2018-08-29 04:00] VITALS: BP 111/69
[2018-08-29] MEDS: ACCU-CHEK COMFORT CURVE STRIP VI SCH ×5 (04:00→20:00)
--- NOTE | 2018-08-29 04:22 | NUR ---
RT NOTE ROUTINE BIPAP CHECK DONE. PT ON BIPAP #RPX [id number] ON STATED SETTINGS WITH MEDIUM MASK AT THIS TIME. LIQUI-CELL IN PLACE. BIPAP IS PLUGGED TO RED OUTLET. ALARMS ARE ON AND AUDIBLE AT NURSES STATION. AMBU BAG AT BEDSIDE. PT IS ON CONT BEDSIDE MONITORING PER PROTOCOL. PT IS AWAKE AND APPEARS TO TOLERATE WELL AT THIS TIME. WILL CONT TO MONITOR. CONT ORDERED. POX 97% Addendum: 08/29/18 at 0435 by Sita Santiago RT Amended: Links added.
[2018-08-29] MEDS: BUDESONIDE (INHALATION) 0.5 MG/2 ML NEB NEB SCH ×2 (06:02→18:37)
[2018-08-29] MEDS: ALBUTEROL SULF 2.5 MG/0.5ML(0.5%) NEB SOLN NEB SCH ×4 (06:03→18:36)
[2018-08-29] MEDS: IPRATROPIUM BROM 0.5 MG/2.5ML INH SOL NEB SCH ×4 (06:03→18:37)
[2018-08-29] MEDS: MIDODRINE HCL 10 MG TAB GT SCH ×2 (07:09→14:03)
--- NOTE | 2018-08-29 07:15 | NUR ---
REPORT RECEIVED FROM EPIC CADENCE ANALYST NURSE. PATIENT RESTING IN BED AT THIS TIME. RESPIRATIONS EVEN AND UNLABORED. NO SIGNS OF ACUTE DISTRESS NOTED. CALL LIGHT REACH, BED IN LOW POSITION. WILL CONTINUE TO MONITOR.
[2018-08-29 08:00] VITALS: BP 103/70
--- NOTE | 2018-08-29 08:30 | NUR ---
PATIENT SATURATIONS NOTED TO DECREASED TO 84-85% INCREASED OXYGEN WITH NO RESPONSE. PAGED RESPIRATORY AND PATIENT SATURATIONS CONTINUED TO DECREASE WITH NO IMPROVEMENT TO 79% PLACED PATIENT BACK ON BIPAP. PATIENT NOTED TO BE NONRESPONSIVE WITH PULSE, PUPIL REACTIVE, PATIENT LIMBS FLACCID. PAGED DR RIOS AWAITING CALL BACK. Addendum: 08/29/18 at 1532 by Socorro Grover RN PATIENT TEMP NOTED TO BE 95.9 AXILLARY. PLACED PATIENT ON BEAR HUGGER AT THIS TIME. WILL CONTINUE TO MONITOR.
--- NOTE | 2018-08-29 08:46 | NUR ---
SPOKE TO DR POOLE ABOUT PATIENT CHANGE IN CONDITION. PER MD ORDER STAT LABS, CXR, AND HEAD CT. PER MD PLACE NEURO CONSULT.
[2018-08-29 09:02] LABS: Basophils # (auto) 0 uL; Eosinophils # (auto) 0 uL; Hemoglobin 9.9 g/dL (12.2-16.2); Lymphocytes # (auto) 0.4 uL; Lymphocytes % (auto) 4.5 % (10.0-50.0); Mean Corpuscular Hemoglobin 30.6 pg (28.0-32.0); Mean Corpuscular Volume 92.8 fL (80.0-100.0); Monocytes # (auto) 0 uL; Monocytes % (auto) 0.5 % (0.0-12.0); Neutrophils # (auto) 8.6 uL; Nucleated Red Blood Cells % 0.1 %; Platelet Count (auto) 300 10^3/uL (140-450); Red Blood Cells 3.23 10^6/uL (4.0-5.20); Red Cell Distribution Width 16.8 % (11.8-14.3); White Blood Cell 9.1 10^3/uL (4.4-10.8)
[2018-08-29 09:20] LABS: Albumin 2.4 g/dL (3.4-5.0); Calcium 8.7 mg/dL (8.5-10.1); Potassium 3.5 mmol/L (3.5-5.1)
[2018-08-29 09:23] LABS: Bilirubin, Total 0.2 mg/dL (0.2-1.0); Total Protein 6.6 g/dL (6.4-8.2)
[2018-08-29 09:30] LABS: INR 0.93 (0.9-1.15)
--- NOTE | 2018-08-29 09:30 | NUR ---
PICC LINE NURSE AT BEDSIDE TO PLACE MIDLINE.
--- NOTE | 2018-08-29 09:44 | NUR ---
MIDLINE PLACEMENT Midline placed to the right upper arm via the basilic vein x1 attempt. 18g, 10cm. Positive blood return and flushes easily. Secured with a biodisk, securement device and transparent dressing.
[2018-08-29] MEDS: DEXTROSE 10% 1,000 ML IV SCH (09:45)
--- NOTE | 2018-08-29 09:50 | NUR ---
DR POOLE AT BEDSIDE TO ASSESS PATIENT AND DISCUSS PLAN OF CARE.
--- NOTE | 2018-08-29 10:11 | NUR ---
[facility] REQUESTING TRANSFER, HOSPITAL STAY DENIED AT THIS TIME. TRYING TO CONTACT DR RIOS TO ADVISE.
[2018-08-29] MEDS: PANTOPRAZOLE 40 MG/10 ML VIAL IV SCH (10:56)
[2018-08-29] MEDS: LEVOTHYROXINE SODIUM 25 MCG TAB GT SCH (10:57)
[2018-08-29] MEDS: LEVETIRACETAM 500 MG/5ML ORAL SOLN UD GT SCH (10:57)
--- NOTE | 2018-08-29 11:00 | NUR ---
TEMP PATIENT TEMP IMPROVED TO 97.9 AXILLARY.
--- NOTE | 2018-08-29 11:49 | NUR ---
PATIENT LEFT FOR HEAD CT NO SIGNS OF ACUTE DISTRESS NOTED.
[2018-08-29 12:00] VITALS: BP 114/55
--- NOTE | 2018-08-29 12:01 | NUR ---
PATIENT BACK FROM [facility] CT PLACED ON BEDSIDE MONITOR. NO SIGNS IF DISTRESS NOTED.
--- NOTE | 2018-08-29 13:43 | NUR ---
UPDATED [facility] ON PATIENT CONDITION. [facility] PLAYROOM ATTENDANT KAMILLE TO CALL DR POOLE TO CLEAR FOR TRANSFER TO [facility].
--- NOTE | 2018-08-29 13:47 | NUR ---
DR RIOS PAGED TO MY EXTENSION TO DISCUSS PATIENT TRANSFER TO [facility], AWAITING CALL BACK.
[2018-08-29 16:00] VITALS: BP 102/65
--- NOTE | 2018-08-29 18:00 | NUR ---
DEXTROSE 10% FLUIDS STOPPED PER MD DUE TO INCREASED BLOOD SUGARS. WILL CONTINUE TO MONITOR.
--- NOTE | 2018-08-29 18:20 | NUR ---
FAXED REQUESTED PAPERWORK TO [facility].
--- NOTE | 2018-08-29 20:14 | NUR ---
Pt stable. Tried to call report, phone rang mult times and then gave busy tone. Will try back in a few minutes.
--- NOTE | 2018-08-29 20:56 | NUR ---
Report given to Xcohilt VILLANUEVA at [facility]. Pt stable at time of transport and on the way to [facility] via [facility]. Larson to drainage, G tube clamped, on the way to [place]. Accucheck 157. No S/S of distress. Care endorsed.
[2018-08-29] MEDS ORDERED: LINEZOLID 600MG TABLET PO SCH (22:00)
== END 2018-08-29 21:05 | disposition short-term general hospital (02) | DRG 177 ==
LOC: EDBD 04:18 → ER 04:21 → TELE 10:03 → DOU IN ICU 21:50
PROVIDERS: ADMIT Nurse Practitioner Acute Care; ATTEND Internal Medicine Pulmonary Disease
PROC: 5A09357 Assistance with Respiratory Ventilation, Less than 24 Consecutive Hours, Continuous Positive Airway Pressure (ICD-10-PCS; principal; 2018-08-27)
PROC: 5A09357 Assistance with Respiratory Ventilation, Less than 24 Consecutive Hours, Continuous Positive Airway Pressure (ICD-10-PCS; 2018-08-28)
DX: J69.0 Pneumonitis due to inhalation of food and vomit (principal); J96.22 Acute and chronic respiratory failure with hypercapnia; E44.0 Moderate protein-calorie malnutrition; G93.1 Anoxic brain damage, not elsewhere classified; J98.11 Atelectasis; N39.0 Urinary tract infection, site not specified; E03.9 Hypothyroidism, unspecified; G40.909 Epilepsy, unspecified, not intractable, without status epilepticus; G51.0 Bell's palsy; G80.9 Cerebral palsy, unspecified; J44.9 Chronic obstructive pulmonary disease, unspecified; K21.9 Gastro-esophageal reflux disease without esophagitis; K27.9 Peptic ulcer, site unspecified, unspecified as acute or chronic, without hemorrhage or perforation; Z82.49 Family history of ischemic heart disease and other diseases of the circulatory system; Z87.01 Personal history of pneumonia (recurrent); Z68.31 Body mass index [BMI] 31.0-31.9, adult; Z79.899 Other long term (current) drug therapy; Z90.49 Acquired absence of other specified parts of digestive tract
CPT/HCPCS: 36415; 36600; 51702; 70450; 71045; 80048; 80053; 80061; 80307; 80320; 81001; 81025; 82805; 82962; 83605; 83735; 84443; 84484; 85025; 85379; 85610; 85730; 87040; 87081; 87086; 87088; 87186; 93005; 93306; 94640; 94660; 96365; 96367; 96375; C9113; G0378; J2543; J3490

== ENCOUNTER 2018-10-06 08:20 | Emergency (ER) | payer OTHER ==
[~2018-10-06] VITALS: Ht 165.1 cm; Wt 54.4 kg
[~2018-10-06 08:20] MED LIST changes: -AZIT250T7 PO; -BUDE0.253 NEB; +CEFP200T15 PO; -CEFU500T43 PO; -GATI0.5S RIGHTEYE; -METR500T GT; -OXCA600T3 GT
[2018-10-06] MEDS ORDERED: SODIUM CHLORIDE 0.9% 1,000 ML IV ONE (09:38)
[2018-10-06] MEDS ORDERED: ALBUTEROL SULF 2.5 MG/0.5ML(0.5%) NEB SOLN NEB ONE (09:45)
[2018-10-06] MEDS ORDERED: IPRATROPIUM BROM 0.5 MG/2.5ML INH SOL NEB ONE (09:45)
[2018-10-06 10:18] LABS: Basophils # (auto) 0 uL; Basophils % (auto) 0.1 % (0.0-2.0); Eosinophils # (auto) 0 uL; Eosinophils % (auto) 0.1 % (0.0-7.0); Hematocrit 36.3 % (36.0-46.0); Hemoglobin 11.5 g/dL (12.2-16.2); Lymphocytes # (auto) 0.5 uL; Lymphocytes % (auto) 2.7 % (10.0-50.0); Mean Corpuscular Hgb Conc. 31.7 g/dL (32.0-36.0); Mean Corpuscular Volume 91.5 fL (80.0-100.0); Monocytes # (auto) 0.3 uL; Monocytes % (auto) 1.5 % (0.0-12.0); Neutrophils # (auto) 16.3 uL; Neutrophils % (auto) 95.6 % (37.0-80.0); Platelet Count (auto) 219 10^3/uL (140-450); Red Blood Cells 3.97 10^6/uL (4.0-5.20)
[2018-10-06 10:32] LABS: Urine Bacteria FEW /hpf (None Seen); Urine Blood Negative /uL (Negative); Urine Specific Gravity 1.011 (1.001-1.035); Urine WBC 2 /hpf (0 - 5)
[2018-10-06 10:33] LABS: Albumin 3.3 g/dL (3.4-5.0); BUN/Creatinine Ratio 24.6; Calcium 9.6 mg/dL (8.5-10.1); Magnesium 2.1 mg/dL (1.6-2.6); Potassium 3.8 mmol/L (3.5-5.1)
[2018-10-06 10:40] LABS: Bilirubin, Total 0.2 mg/dL (0.2-1.0); Total Protein 7.9 g/dL (6.4-8.2)
[2018-10-06] MEDS ORDERED: cefTRIAXone 1GM/50ML D5W 50 ML IV ONE (11:30)
[2018-10-06] MEDS ORDERED: AZITHROMYCIN 500MG/ 250ML 250 ML IV ONE (11:30)
[2018-10-06] MEDS ORDERED: PANTOPRAZOLE 80 MG in SODIUM CHL 0.9% 60 ML IV ONE (13:15)
[2018-10-06 16:43] VITALS: BP 93/60
== END 2018-10-06 16:57 | disposition short-term general hospital (02) ==
LOC: EDBD 08:20 → ER 08:20
DX: J18.9 Pneumonia, unspecified organism (principal); G40.909 Epilepsy, unspecified, not intractable, without status epilepticus; G82.50 Quadriplegia, unspecified; Q27.30 Arteriovenous malformation, site unspecified; J44.9 Chronic obstructive pulmonary disease, unspecified; K21.9 Gastro-esophageal reflux disease without esophagitis; E78.5 Hyperlipidemia, unspecified; Z90.49 Acquired absence of other specified parts of digestive tract; Z86.39 Personal history of other endocrine, nutritional and metabolic disease
CPT/HCPCS: 36415; 71045; 80053; 81001; 83605; 83735; 84443; 85025; 87040; 93005; 94640; 94761; 96365; 96366; 96367; 99285; J0456; J0696; J7611; J7644

== ENCOUNTER 2019-07-29 23:29 | Inpatient (IN) | payer OTHER ==
[~2019-07-29] VITALS: Ht 157.5 cm; Wt 75.5 kg
[2019-07-29] MEDS ORDERED: ETOMIDATE (2MG/ML) 20ML VIAL IV ONE (23:53)
[2019-07-29] MEDS ORDERED: SUCCINYLCHOLINE CHLORIDE 20 MG/ML 10ML VIAL IV ONE (23:54)
[2019-07-30] VITALS (71 sets, daily range): BP systolic 85–110; BP diastolic 47–65
[2019-07-30] MEDS ORDERED: SUCCINYLCHOLINE CHLORIDE 20 MG/ML 10ML VIAL IV ONE
[2019-07-30] MEDS ORDERED: ETOMIDATE (2MG/ML) 20ML VIAL IV ONE
[2019-07-30] MEDS ORDERED: MIDAZOLAM DRIP 50 mg/50mL 50 ML IV ONE (00:01)
[2019-07-30] MEDS: MIDAZOLAM DRIP 50 mg/50mL 50 ML IV SCH ×4 (00:13→10:41)
[2019-07-30 00:20] LABS: Basophils # (auto) 0.1 uL; Basophils % (auto) 0.5 % (0.0-2.0); Eosinophils # (auto) 0 uL; Eosinophils % (auto) 0.4 % (0.0-7.0); Hematocrit 37.4 % (36.0-46.0); Hemoglobin 12.2 g/dL (12.2-16.2); Lymphocytes # (auto) 1.4 uL; Lymphocytes % (auto) 12.6 % (10.0-50.0); Mean Corpuscular Hemoglobin 29.7 pg (28.0-32.0); Mean Corpuscular Hgb Conc. 32.7 g/dL (32.0-36.0); Monocytes # (auto) 0.8 uL; Neutrophils # (auto) 9.1 uL; Neutrophils % (auto) 79.5 % (37.0-80.0); Platelet Count (auto) 424 10^3/uL (140-450); Red Blood Cells 4.11 10^6/uL (4.0-5.20); Red Cell Distribution Width 14.9 % (11.8-14.3); White Blood Cell 11.4 10^3/uL (4.4-10.8)
[2019-07-30 00:35] LABS: INR 1.03 (0.9-1.15); Partial Thromboplastin Time 26.9 sec (23.64-32.05)
[2019-07-30 00:39] LABS: Alanine Aminotransferase 77 U/L (13-56); Albumin 3.4 g/dL (3.4-5.0); Anion Gap 6 (5-15); Aspartate Aminotransferase 58 U/L (15-37); BUN/Creatinine Ratio 30.7; Blood Urea Nitrogen 27 mg/dL (7-18); Calcium 9.5 mg/dL (8.5-10.1); Carbon Dioxide 36 mmol/L (21-32); Chloride 95 mmol/L (98-107); GFR African American 86 mL/min; GFR Non-African American 71 mL/min; Glucose 114 mg/dL (74-106); Potassium 3.7 mmol/L (3.5-5.1); Sodium 137 mmol/L (136-145)
[2019-07-30 00:44] LABS: Alkaline Phosphatase 171 U/L (45-117); Bilirubin, Total 0.3 mg/dL (0.2-1.0); Total Protein 8.4 g/dL (6.4-8.2); Urine Bacteria FEW /hpf (None Seen); Urine Blood Negative /uL (Negative); Urine Budding Yeast LOADED /hpf (None Seen); Urine Hyaline Cast MOD /lpf (0 - 2); Urine WBC 8 /hpf (0 - 5)
[2019-07-30 00:52] LABS: Amphetamine Screen, Urine NEGATIVE (NEGATIVE); Barbiturate Scree,Urine NEGATIVE (NEGATIVE); Benzodiazephine Screen, Urine NEGATIVE (NEGATIVE); Cannabinoid Screen, Urine NEGATIVE (NEGATIVE); Cocaine Screen, Urine NEGATIVE (NEGATIVE); Opiate Scree,Urine NEGATIVE (NEGATIVE); Phencyclidine Screen, Urine NEGATIVE (NEGATIVE)
[2019-07-30] MEDS ORDERED: cefTRIAXone 1GM/50ML D5W 50 ML IV ONE ×2 (04:18→04:30)
[2019-07-30] MEDS ORDERED: SODIUM CHLORIDE 0.9% 500 ML IV ONE (04:30)
[2019-07-30] MEDS ORDERED: NOREPINEPHRINE 8 MG/250ML KIT 250 ML IV ONE (04:41)
[2019-07-30] MEDS ORDERED: PANTOPRAZOLE 40 MG/10 ML VIAL INJ IV ONE ×2 (04:45→14:30)
[2019-07-30] MEDS: NOREPINEPHRINE 8 MG/250ML KIT 250 ML IV SCH (04:53)
[2019-07-30] MEDS ORDERED: ONDANSETRON HCL 4 MG/2 ML VIAL IV PRN (06:00)
[2019-07-30] MEDS ORDERED: D5W/SOD CHLO 0.9% 1,000 ML IV SCH (06:00)
[2019-07-30] MEDS ORDERED: LORazepam 2MG/ML-1ML VIAL IV PRN (06:00)
[2019-07-30] MEDS ORDERED: MORPHINE SULF INJ 2 MG/ML SYRINGE 1ML IV PRN (06:30)
[2019-07-30] MEDS ORDERED: NITROGLYCERIN 0.4 MG SL TAB SL PRN (06:30)
[2019-07-30] MEDS: ALBUTEROL SULF 2.5 MG/0.5ML(0.5%) NEB SOLN NEB SCH ×3 (06:34→18:42)
[2019-07-30] MEDS: IPRATROPIUM BROM 0.5 MG/2.5ML INH SOL NEB SCH ×3 (06:34→18:42)
[2019-07-30] MEDS: LEVOFLOXACIN 750MG 150 ML IV SCH (07:02)
[2019-07-30] MEDS: LEVOTHYROXINE SODIUM 25 MCG TAB PEG SCH (08:03)
--- NOTE | 2019-07-30 08:45 | NUR ---
RT NOTE: PT. TRANSFERRED WITH RICH SAINZ AND CARO AGUIRRE TO ICU 106 FROM ER WITHOUT INCIDENT. PT. BAGGED WITH 15L O2 AND FURNACE UTILITY OPERATOR IN PLACE. PT. PLACED ON ORDERED VENT SETTINGS.
--- NOTE | 2019-07-30 09:00 | NUR ---
ADMIT TO ICU Initial assessment Erendira Breen admitted to ICU via gurney on cardiac specialist, intubated and being bagged by Susan Respiratory Therapist. Report received from Allison VILLANUEVA, care assumed. Patient transferred to bed 106, connected to mechanical ventilator by therapist, GINO at bedside. Patient connected to ICU monitoring, weighed by bedscale, oriented to Dhaar Dean primary RN, unit, ventilator and sedation. No s/s of pain or distress noted. Rectal temperature connect to monitor, 97.7. Left pupil equal and reactive to light. Right eye covered with patch. Pulses palpable radial and pedal bilaterally. SCD's placed on bilateral lower extremities. Lungs clear anteriorly, oxygen saturation 97%. Abdomen is round, soft, non-tender. Peg tube left upper quadrant. Right nare NGT patent and clamped. Larson catheter present, patent, and secured below bladder. Patient repositioned in bed. MRSA swab obtained. Bed locked in lowest position, alarms in place. Will continue to monitor.
[2019-07-30] MEDS: ENOXAPARIN SOD 40 MG/0.4 ML SYRINGE SC SCH (09:23)
[2019-07-30] MEDS: LEVETIRACETAM INJ 500 MG in D5W 5% 100 ML IV SCH ×2 (09:23→22:04)
--- NOTE | 2019-07-30 09:25 | NUR ---
TEMPERATURE Patient rectal temperature 97.2, warming measures initiated. Jocelyn hugger and multiple blankets placed. Will continue to monitor.
--- NOTE | 2019-07-30 09:33 | NUR ---
VISITOR Patient Ray at bedside. updated on plan of care. All questions and concerns addressed.
[2019-07-30] MEDS ORDERED: PANTOPRAZOLE 40 MG/10 ML VIAL INJ IV SCH (10:00)
--- NOTE | 2019-07-30 10:48 | NUR ---
MD UPDATE called for information regarding new consultation for this patient. MD will round this afternoon. No new orders received at this time.
--- NOTE | 2019-07-30 11:46 | NUR ---
TEMPERATURE RE-ASSESSMENT Rectal temperature 99.1, warming blanket removed.
--- NOTE | 2019-07-30 12:00 | NUR ---
WOUND CARE NOTE: IN TO SEE PATIENT AT THIS TIME PER WOUND CARE CONSULT REQUEST. PATIENT WAS NOTED UPON RECENT ADMIT TO HAVE WOUNDS. ALL WOUNDS PHOTOGRAPHED AT THIS TIME FOR REFERENCE. PATIENT ADMITTED TO [facility] WITH DIAGNOSIS OF ACUTE RESPIRATORY FAILURE. SHE IS CURRENTLY INTUBATED, SEDATED, APPEARS TO BE IN NO PAIN USING [place]MONDS-PA PAIN SCALE. FAMILY AT BEDSIDE. PATIENT HAS CEREBRAL PALSY. SHE IS MAX ASSIST FOR ALL OF THER ADL'S. CURRENT LESLEY SCORE IS 10 AT THIS TIME. PATIENT NOTED TO HAVE STAGE 2 PRESSURE INJURIES TO RIGHT AND LEFT LOWER BUTTOCK SKIN FOLD AREAS. APPEAR PERHAPS TO BE CAUSED FROM THE USE OF DIAPER. WOUNDS ARE PARTIAL THICKNESS. ZGUARD APPLIED TO OPEN WOUNDS. PATIENT ALSO HAS AN INTACT ABRASION TO THE RIGHT WRIST. LEFT OPEN TO AIR. NO OTHER SKIN INTEGRITY ISSUES SEEN AT THIS TIME. RECOMMEND: FREQUENT TURN SCHEDULE Q 2 HOURS, PRN CONDITION PERMITS, WITH PRESSURE REDISTRIBUTION USING PILLOWS/WEDGES, BID/PRN APPLICATION WITH ZGUARD TO R/L BUTTOCK WOUNDS AND SACRAL SKIN WITH APPLICATION OF OPTIFOAM GENTLE SACRAL DRESSING PREVENTATIVE TO UPPER SACRUM, SPECIALTY AIR BED, DIETARY CONSULT FOR LOW LESLEY/WOUNDS, CONTINUED MONITORING BY WOUND CARE TEAM, SKIN/WOUND CARE PLAN. Addendum: 07/30/19 at 1905 by Ceci Castro RN Amended: Links added.
--- NOTE | 2019-07-30 12:20 | NUR ---
MILL DRESSER AT BEDSIDE at bedside assessing patient. MD reviewing chart.
--- NOTE | 2019-07-30 12:36 | NUR ---
WOUND CARE CONSULT Amanda VILLANUEVAhealthcare associate nurse at bedside for skin assessment.
--- NOTE | 2019-07-30 13:14 | NUR ---
CRABTREE Spoke with Yazan rn case management at [facility]. She stated that they do not deem patient stable for transport at this time. They will call again tomorrow.
[2019-07-30] MEDS: SODIUM CHLORIDE 0.9% 1,000 ML IV SCH ×2 (13:47→21:00)
[2019-07-30] MEDS: fentaNYL Drip 2500mCg/250mlNS 250 ML IV SCH (13:53)
--- NOTE | 2019-07-30 13:54 | NUR ---
SEDATION notified of [facility] not wanting to transfer patient tonight. MD would like to change sedation from Versed to Propofol and fentanyl. Then to attempt sedation vacation and cpap trial tomorrow if patient is awake and able to follow simple commands. Orders placed.
--- NOTE | 2019-07-30 14:32 | NUR ---
1420 07/30/19 Contacted Health Science Writer Marisela at [facility] [phone] let her know that there is an order to transfer this patient to [facility]. She said she spoke with her MD and due to patient just being intubated today and being on Levo gtt with b/p 90/50 they do not think the patient is stable for transfer. She said inpatient stay authorization is extended until 07/31/19 1000 with auth number [id number]. I requested that she fax the authorization to [phone].
[2019-07-30] MEDS: PROPOFOL 100 ML IV SCH (14:35)
--- NOTE | 2019-07-30 15:27 | NUR ---
WOUND CARE NOTE: SPECIALTY AIR BED ORDERED AT THIS TIME. PATIENT TO BE PLACED, PENDING DELIVERY BY [facility]
[2019-07-30] MEDS ORDERED: BUDE2SUS3 IN (17:22)
--- NOTE | 2019-07-30 17:30 | NUR ---
PAGED Hospitalist paged regarding eye drops for right eye. Orders obtained from Sandie MANDUJANO.
[2019-07-30] MEDS: PANTOPRAZOLE 40 MG/10 ML VIAL INJ IV SCH (22:04)
[2019-07-30] MEDS: ARTIFICIAL TEAR OPTH(EYE) OINT 3.5GM RIGHTEYE SCH (22:04)
[2019-07-31] VITALS (75 sets, daily range): BP systolic 56–171; BP diastolic 33–137
[2019-07-31] MEDS: IPRATROPIUM BROM 0.5 MG/2.5ML INH SOL NEB SCH ×4 (00:18→18:23)
[2019-07-31] MEDS: ALBUTEROL SULF 2.5 MG/0.5ML(0.5%) NEB SOLN NEB SCH ×4 (00:18→18:23)
[2019-07-31] MEDS: NOREPINEPHRINE 8 MG/250ML KIT 250 ML IV SCH (02:00)
[2019-07-31 03:43] LABS: Basophils # (auto) 0.1 uL; Basophils % (auto) 0.6 % (0.0-2.0); Eosinophils # (auto) 0.1 uL; Eosinophils % (auto) 1.2 % (0.0-7.0); Hematocrit 30.8 % (36.0-46.0); Hemoglobin 10.3 g/dL (12.2-16.2); Lymphocytes # (auto) 1.6 uL; Lymphocytes % (auto) 16.3 % (10.0-50.0); Mean Corpuscular Hemoglobin 30.2 pg (28.0-32.0); Mean Corpuscular Hgb Conc. 33.5 g/dL (32.0-36.0); Mean Corpuscular Volume 90.4 fL (80.0-100.0); Monocytes # (auto) 0.7 uL; Monocytes % (auto) 6.9 % (0.0-12.0); Neutrophils # (auto) 7.2 uL; Platelet Count (auto) 342 10^3/uL (140-450); Red Blood Cells 3.41 10^6/uL (4.0-5.20); Red Cell Distribution Width 15.3 % (11.8-14.3); White Blood Cell 9.6 10^3/uL (4.4-10.8)
[2019-07-31 04:03] LABS: Potassium 3.8 mmol/L (3.5-5.1)
[2019-07-31 04:11] LABS: Albumin 2.6 g/dL (3.4-5.0); Bilirubin, Total 0.3 mg/dL (0.2-1.0); Calcium 8.4 mg/dL (8.5-10.1); Total Protein 6.8 g/dL (6.4-8.2)
[2019-07-31] MEDS: SODIUM CHLORIDE 0.9% 1,000 ML IV SCH ×3 (05:00→21:14)
[2019-07-31] MEDS: LEVOFLOXACIN 750MG 150 ML IV SCH (06:00)
[2019-07-31] MEDS: ARTIFICIAL TEAR OPTH(EYE) OINT 3.5GM RIGHTEYE SCH ×5 (06:00→21:15)
[2019-07-31] MEDS: PROPOFOL 100 ML IV SCH (06:30)
[2019-07-31] MEDS: LEVOTHYROXINE SODIUM 25 MCG TAB PEG SCH (06:51)
--- NOTE | 2019-07-31 07:00 | NUR ---
Opening Shift Note Assumed care of patient. Pt on a vent and on sedated. Will continue to monitor and assess needs.
--- NOTE | 2019-07-31 09:15 | NUR ---
CPAP trial Order for CPAP trial by . Patient completely off any sedation. Patient educated on need to remain calm, and to breathe steady/even. Room is distration free for patient comfort. Family educated on need to remain in waiting room or at home during CPAP so trial is optimum for patient success. RT at bedside placed patient ventilator on CPAP. Current sats 96 %. Continue to monitor closely.
--- NOTE | 2019-07-31 09:15 | NUR ---
CPAP TRIAL STARTED AT THIS TIME, WITH PS 8, AND PEEP 5, FI02 30%. ORDERS PER DR. GRAHAM. PT. IS OFF SEDATION AWAKE AND ALERT, FOLLOWING COMMANDS, WILL CONTINUE TO MONITOR RESP. STATUS.
--- NOTE | 2019-07-31 10:20 | NUR ---
WEANING PARAMETERS, NIF= -26,VC= 724,RR=25,VE=7.5,QH=541, RSBI=83. , PT. TOLERATES CPAP WELL, NO RESP. DISTRESS NOTED, ABG TO FOLLOW.
[2019-07-31] MEDS: ENOXAPARIN SOD 40 MG/0.4 ML SYRINGE SC SCH (10:28)
[2019-07-31] MEDS: PANTOPRAZOLE 40 MG/10 ML VIAL INJ IV SCH ×2 (10:28→21:43)
[2019-07-31] MEDS: LEVETIRACETAM INJ 500 MG in D5W 5% 100 ML IV SCH ×2 (10:38→21:43)
--- NOTE | 2019-07-31 11:00 | NUR ---
ABG RESULT READ TO DR GRAHAM WITH AN ORDER TO EXTUBATE THE PT. RESPIRATORY THERAPIST INFORMED.
--- NOTE | 2019-07-31 11:17 | NUR ---
NUTRITION CONSULT/ASSESSMENT NOTES Please refer to link notes of nutrition screen form filed under the intervention section of the plan of care for further details. Est. Needs: 1300 kcal to 1700 kcal (15-20 kcal/kgBW), 69 gms to 86 gms pro (0.8-1.0 gms/kgBW). Will continue to monitor pertinent labs and reassess nutrient need prn Thank you for this consult. Addendum: 07/31/19 at [address] Amended: Links added.
--- NOTE | 2019-07-31 11:50 | NUR ---
Patient extubated by RT Extubation order received by , RT at bedside. Patient extubated with no problems, patient tolerated well. Patient placed on 35 % cool mist mask. Sats prior to extubation 96%, following extubation 95%. Continue to monitor.
--- NOTE | 2019-07-31 11:50 | NUR ---
PT. EXTUBATED PER DR. GRAHAM'S T.O. TAKEN BY RN. NIDAYE. PT. PLACED ON COOL AEROSOL AT 35%,SPO2 95%, HR=99,RR=28,OX=283/85, B.S. RHONCI BILAT. , ENCOURAGED PT. TO TAKE DEEP BREATHS AND COUGH.
--- NOTE | 2019-07-31 13:05 | NUR ---
1245 07/31/19 Contacted [facility] to speak with [employer] to request authorization be provided for continued stay. I was on hold for more than 10 minutes, unable to speak with live person, unable to leave a message. I faxed transfer order and Notice Regarding Post Stabilization to [facility] [phone].
--- NOTE | 2019-07-31 13:30 | NUR ---
NTS., DUE TO SATS IN THE 80'S AND VERY COARSE RHONCI AND STIRDOR. PT. SX'D FOR LARGE AMOUNT OF THICK GREENISH SECRETIONS. SATURATION IMPROVED TO 97%
[2019-07-31] MEDS ORDERED: EPINEPHrine HCL 0.5 ML NEB ONE (13:40)
[2019-07-31] MEDS ORDERED: EPINEPHrine HCL 0.5 ML NEB NEB ONE (13:45)
[2019-07-31] MEDS: fentaNYL Drip 2500mCg/250mlNS 250 ML IV SCH (13:53)
--- NOTE | 2019-07-31 14:38 | NUR ---
1430 07/31/19 Received a call from [facility] [employer] Mónica-she said that on their end patient is not stable for transfer today due to recent extubation and still on Levo gtt. She said authorization number previously given [id number] is still good-extended until 08/01 1000. I asked that she fax over today's authorization as well.
--- NOTE | 2019-07-31 16:30 | NUR ---
ASSUMED CARE FROM RICH NDIAYE
--- NOTE | 2019-07-31 16:30 | NUR ---
OPENING NOTE: LETHARGIC BUT AROUSABLE. AT BEDSIDE. ORIENTED TO SELF, DIFFICULT TO ASSESS OTHER ORIENTATION. FOLLOWS COMMANDS. SINUS TACH, HR 110s. SBP 120s INITIALLY BUT DROPPED INTO LOW 60s. PER , PATIENT WITH CHRONICALLY LOW BP, ON MIDODRINE TID AT HOME. RESTARTED LEVOPHED GTT. 35% 10L ON COOL MASK. UPPER LS WITH RHONCHI THROUGHOUT, MINIMAL STRIDOR AT MOST, RR 30s. DENIES SHORTNESS OF BREATH. DEEP SUCTIONED AND PATIENT WAS ABLE TO COUGH UP THICK CREAMY BROWN SECRETION THAT WEB SITE ADMIN WAS ABLE TO SUCTION. NGT + AIR BOLUS. PEG CDI. ABD SOFT. HYPOACTIVE BS. LBM 07/30. ARAYA INTACT DRAINING LIGHT YELLOW URINE. SKIN GROSSLY INTACT, SEE SKIN AND WOUND FLOWSHEET FOR ASSESSMENT. RIGHT IJ TLC, CDI, PATENT WITH BLOOD RETURN. 20 G PIV TO RIGHT AC, CDI, PATENT WITH BLOOD RETURN. DENIES PAIN, CHEST PAIN, SOB, HEADACHE, DIZZINESS, N/V, AT THIS TIME. AT BEDSIDE, ATTENTIVE TO PATIENT NEEDS. MAINTAINED PATIENT SAFETY: BED LOCKED AND IN THE LOWEST POSITION, FREQUENT VISUAL CHECKS. ENCOURAGED TO NOTIFY STAFF AND WEB SITE ADMIN OF ANY CHANGES OR NEEDS. PATIENT AND VERBALIZED UNDERSTANDING OF POC. WILL CONT CARE
--- NOTE | 2019-07-31 16:33 | NUR ---
Report given to RICH Hood who will assume care.
--- NOTE | 2019-07-31 17:00 | NUR ---
RIGHT EYE PATCH REMOVED BY - PER SHE ONLY WEARS IT AT NIGHT
--- NOTE | 2019-07-31 17:15 | NUR ---
REMOVED NGT: TOLERATED WELL. CONFIRMED PRIOR TO NGT REMOVAL WITH THAT HE HAS HAD NO ISSUES WITH PEG TUBE. PEG FLUSHED WITHOUT RESISTANCE.
--- NOTE | 2019-07-31 17:15 | NUR ---
RAPID INFLUENZA SWAB SENT
--- NOTE | 2019-07-31 19:45 | NUR ---
APPLIED LUBRICANT TO RIGHT EYE AND COVERED
--- NOTE | 2019-07-31 20:54 | NUR ---
SPOKE WITH BRENDA KISS MIXER: STATES PATIENT TAKES 1MG PULMICORT BID MED NEB AT HOME. PER DELBERT GUTIERREZ OK TO START. ORDERS READBACK AND VERIFIED
[2019-07-31] MEDS: BUDESONIDE (INHALATION) 0.5 MG/2 ML NEB NEB SCH (22:08)
--- NOTE | 2019-07-31 23:10 | NUR ---
SPOKE WITH PATIENT'S : AFTER PASSWORD VERIFIED, UPDATED ON PATIENT'S STATUS. ANSWERED ALL QUESTIONS ABLE
[2019-08-01] VITALS (44 sets, daily range): BP systolic 93–116; BP diastolic 55–75
[2019-08-01] MEDS: IPRATROPIUM BROM 0.5 MG/2.5ML INH SOL NEB SCH ×3 (00:21→17:21)
[2019-08-01] MEDS: ALBUTEROL SULF 2.5 MG/0.5ML(0.5%) NEB SOLN NEB SCH ×4 (00:21→17:21)
--- NOTE | 2019-08-01 01:48 | NUR ---
DESATURATED DOWN 74% - PATIENT RECOVERED ON OWN
--- NOTE | 2019-08-01 01:50 | NUR ---
LEFT ARM NOTED TO BE SWOLLEN, PATIENT WITHDRAWS WHEN TOUCHED - ELEVATED ON PILLOWS
--- NOTE | 2019-08-01 02:00 | NUR ---
BG 63
--- NOTE | 2019-08-01 02:00 | NUR ---
NOTED TO DESATURATE DOWN TO 70s: WAS NOT MOVING AIR. PAGED RT.
--- NOTE | 2019-08-01 02:10 | NUR ---
RTs AT BEDSIDE, BAGGING PATIENT - PAGED BRENDA PULPWOOD BUYER TO COME TO BEDSIDE REPOSITIONED. ORDERS FOR 125 MG SOLUMEDROL AND CHANGE IVF TO D5NS @ 80 ML/HR, AND BIPAP PRN ORDERS. ORDERS READBACK AND VERIFIED
[2019-08-01] MEDS ORDERED: DEXTROSE 50% SYRINGE 50 ML IV ONE (02:15)
[2019-08-01] MEDS ORDERED: methylPREDNISolone SOD SUCC 125 MG/2 ML VL ONE (02:20)
[2019-08-01] MEDS: D5W/SOD CHLO 0.9% 1,000 ML IV SCH ×2 (02:30→15:00)
[2019-08-01] MEDS ORDERED: DEXTROSE (50%) 50ML SYRG IV ONE (02:30)
[2019-08-01] MEDS ORDERED: methylPREDNISolone SOD SUCC 125 MG/2 ML VL IV ONE (02:30)
[2019-08-01] MEDS ORDERED: ALBUTEROL SULF 2.5 MG/0.5ML(0.5%) NEB SOLN NEB PRN (02:30)
[2019-08-01] MEDS ORDERED: IPRATROPIUM BROM 0.5 MG/2.5ML INH SOL NEB PRN (02:30)
--- NOTE | 2019-08-01 02:54 | NUR ---
BG RECHECK 166
--- NOTE | 2019-08-01 03:01 | NUR ---
PATIENT FEELS WARM - RECTAL TEMP 97.5F, AXILLARY 98.6F
--- NOTE | 2019-08-01 03:04 | NUR ---
REMOVED SCDs - PATIENT KICKING LEGS
--- NOTE | 2019-08-01 03:11 | NUR ---
SATURATION > 95% ON BIPAP SETTING, RR MID TO HIGH 20s
--- NOTE | 2019-08-01 03:29 | NUR ---
UNABLE TO TURN AT THIS TIME D/T RESP STATUS
[2019-08-01 03:51] LABS: Basophils # (auto) 0 uL; Basophils % (auto) 0.5 % (0.0-2.0); Eosinophils # (auto) 0.1 uL; Eosinophils % (auto) 2.4 % (0.0-7.0); Hematocrit 25.4 % (36.0-46.0); Hemoglobin 8.6 g/dL (12.2-16.2); Lymphocytes # (auto) 1.3 uL; Lymphocytes % (auto) 23.8 % (10.0-50.0); Mean Corpuscular Hemoglobin 30.6 pg (28.0-32.0); Mean Corpuscular Hgb Conc. 33.7 g/dL (32.0-36.0); Mean Corpuscular Volume 91.1 fL (80.0-100.0); Monocytes # (auto) 0.3 uL; Monocytes % (auto) 6.1 % (0.0-12.0); Neutrophils # (auto) 3.6 uL; Neutrophils % (auto) 67.2 % (37.0-80.0); Platelet Count (auto) 253 10^3/uL (140-450); Red Blood Cells 2.79 10^6/uL (4.0-5.20); Red Cell Distribution Width 14.7 % (11.8-14.3); White Blood Cell 5.3 10^3/uL (4.4-10.8)
[2019-08-01 04:07] LABS: Albumin 2.3 g/dL (3.4-5.0); Calcium 7.7 mg/dL (8.5-10.1); Magnesium 1.8 mg/dL (1.6-2.6)
[2019-08-01 04:10] LABS: BUN/Creatinine Ratio 8.9; Bilirubin, Total 0.2 mg/dL (0.2-1.0); Total Protein 5.8 g/dL (6.4-8.2)
[2019-08-01] MEDS: NOREPINEPHRINE 8 MG/250ML KIT 250 ML IV SCH (04:37)
[2019-08-01] MEDS: LEVOFLOXACIN 750MG 150 ML IV SCH (05:59)
[2019-08-01] MEDS: ARTIFICIAL TEAR OPTH(EYE) OINT 3.5GM RIGHTEYE SCH ×4 (05:59→15:48)
[2019-08-01] MEDS: LEVOTHYROXINE SODIUM 25 MCG TAB PEG SCH (06:00)
--- NOTE | 2019-08-01 06:02 | NUR ---
SPOKE WITH : AFTER PASSWORD VERIFIED, UPDATED ON PATIENT'S STATUS AND OVERNIGHT EVENTS. VERBALIZED UNDERSTANDING. ANSWERED QUESTIONS ABLE
--- NOTE | 2019-08-01 06:12 | NUR ---
PARTIAL BED BATH, ADRIAN CARE, ARAYA CARE, ORAL CARE, AND FULL LINEN CHANGE COMPLETED - TOLERATED FAIRLY WELL
[2019-08-01] MEDS: BUDESONIDE (INHALATION) 0.5 MG/2 ML NEB NEB SCH ×2 (06:19→17:22)
--- NOTE | 2019-08-01 06:21 | NUR ---
REMOVED RIGHT EYE PATCH, PLACED ON BEDSIDE DRAWER
--- NOTE | 2019-08-01 06:45 | NUR ---
CLOSING NOTE: REMAINS ON BIPAP.TOLERATING WELL. INTERMITTENTLY RESTLESS. VSS, ABLE TO WEAN OFF LEVOPHED. WILL ENDORSE CARE TO DAY SHIFT
--- NOTE | 2019-08-01 07:10 | NUR ---
OPENING NOTE SHIFT REPORT RECEIVED AND ASSUMED CARE OF PT FROM CRISTIN VILLANUEVA
--- NOTE | 2019-08-01 07:30 | NUR ---
REPORT AND CARE ENDORSED TO RICH SON
--- NOTE | 2019-08-01 08:35 | NUR ---
Respiratory note: TITRATED FIO2 TO 30%. PT TOLERATING WELL.
--- NOTE | 2019-08-01 10:00 | NUR ---
TREVOR FROM [facility] [employer] [facility] CALLED FOR UPDATE ON PT STATUS. STATES WILL SPEAK TO PHYSICIAN ON PT STATUS. IF NEED TO CONTACT HER PHONE NUMBER IS [phone]
[2019-08-01] MEDS ORDERED: MEROPENEM 1GM IVPB 100 ML IV ONE (10:15)
--- NOTE | 2019-08-01 10:30 | NUR ---
PT IS TOLERATING SIMPLE MASK WELL O2SAT 99%-100%. RR 20. NO S/S OF DISTRESS. WILL CONTINUE TO MONITOR
[2019-08-01] MEDS: PANTOPRAZOLE 40 MG/10 ML VIAL INJ IV SCH (10:31)
[2019-08-01] MEDS: ENOXAPARIN SOD 40 MG/0.4 ML SYRINGE SC SCH (10:32)
[2019-08-01] MEDS: LEVETIRACETAM INJ 500 MG in D5W 5% 100 ML IV SCH (10:32)
--- NOTE | 2019-08-01 10:42 | NUR ---
Respiratory note: TOOK PT OFF BIPAP PT TOLERATING WELL. HR 75, RR 18, POX 98% ON 8L SIMPLE MASK. RN NOTIFY OF CHANGE.
--- NOTE | 2019-08-01 11:00 | NUR ---
DR. CURRIE AT BEDSIDE ORDERS RECEIVED
[2019-08-01] MEDS ORDERED: POTASSIUM CHLORIDE 60 MEQ, LIDOCAINE 1% (LOCAL ANESTH.) 6 ML in SODIUM CHL 0.9% 500 ML IV ONE (11:30)
--- NOTE | 2019-08-01 12:00 | NUR ---
COOLING MEASURES INITIATED
--- NOTE | 2019-08-01 12:37 | NUR ---
RECEIVED REPORT FROM TELEPHONE ORDER CLERKVALENCIA. AWAITING PATIENT ARRIVAL.
--- NOTE | 2019-08-01 12:37 | NUR ---
REPORT GIVEN TO NAVARRO VILLANUEVA PT ON SIMPLE MASK @8L. PT IS AWAKE AND ALERT X2 PERSON, PLACE.
--- NOTE | 2019-08-01 12:40 | NUR ---
Telemetry transfer from ICU JUAN RAMON SANTILLAN Transferred to Telemetry unit after SBAR received. Patient now on continuous telemetry monitoring, tele box # 27 and telemetry reading on arrival to unit is SR. Patient placed on bedside oxygen via simple mask at 8L. Suction at bedside. No s/s of distress or SOB or Pain. Bed in lowest and locked position with side rails up x2 and call light within reach. Encouraged patient and family to call if they need something. All questions and concerns addressed, patient verbalized understanding.
--- NOTE | 2019-08-01 15:41 | NUR ---
1515 08/01/19 Contacted quality assurance analyst Maria E at [facility] and she told me the assigned case therapist is Angelika and that they did receive the transfer order on this patient and are working on finding a bed-they will call our nurse's station when a bed becomes available. I asked Maria E to have case therapist Angelika call me with an update on the status of the transfer.
--- NOTE | 2019-08-01 15:45 | NUR ---
1545 08/01/19 Contacted nursing informatics clinical analyst Pelon at [facility] and made him aware that patient downgraded to telemetry room 205 and provided him with contact information for the nurse's station to give to [employer] Angelika.
--- NOTE | 2019-08-01 17:16 | NUR ---
assessment Patient has been down graded from ICU to room 205. Per patients Ray prior to admission patient lived home with him and functioned with assistance. Patient has a wheelchair for home use. Patients PCP is Dr Dean at [facility]. I informed Ray patient has an order to transfer to [facility]. Patient and Ray agree to transfer. Ray verbalized understanding. Addendum: 08/01/19 at 1718 by Radha CORBIN Amended: Links added.
--- NOTE | 2019-08-01 17:18 | NUR ---
RECEIVED CALL FROM [facility] CASE AIDE, JANESSA. ACCORDING TO JANESSA, THE PATIENT HAS BEEN ACCEPTED TO [facility] TO BED 209. REPORT NUMBER IS [id number] AND [facility] ETA 1999 AND [facility] WILL BE ON SITE.
--- NOTE | 2019-08-01 17:50 | NUR ---
NOTIFIED THAT THE PATIENT WILL BE TRANSFERRED TO ROOM 209 AT [facility]. AWARE.
--- NOTE | 2019-08-01 18:01 | NUR ---
CALLED FOR REPORT REPORT GIVEN TO ALTA AT [facility] FOR ROOM 209. Addendum: 08/01/19 at 4 by NAVARRO LEWIS RN RN PHONE NUMBER FOR [facility] FACILITY IS [phone] AND THE PHONE NUMBER FOR THE UNIT FOR ROOM 209 IS [phone]
--- NOTE | 2019-08-01 18:11 | NUR ---
RECEIVED CALL FROM CLAIMS CONFIGURATION ANALYST WITH [employer]. ACCORDING TO CLAIMS CONFIGURATION ANALYST WITH JANESSA CRABTREE, THE TRANSPORT WILL BE AT [phone] EWING.
--- NOTE | 2019-08-01 18:30 | NUR ---
RECEIVED CALL FROM UTILITY PLANT OPERATIVE WITH [employer]. ACCORDING TO UTILITY PLANT OPERATIVE WITH JANESSA CRABTREE, THE TRANSPORT WILL BE AT [id number].
--- NOTE | 2019-08-01 19:30 | NUR ---
report received from day rn poc reviewed
--- NOTE | 2019-08-01 19:30 | NUR ---
ENDORSED CARE TO ADMINISTRATIVE ASSISTANT OFFICE MANAGER RNJONA. JONA UPDATED ON THE TRANSFER STATUS.
--- NOTE | 2019-08-01 21:00 | NUR ---
pictures taken of pts sacrum and right wrist scab
--- NOTE | 2019-08-01 21:29 | NUR ---
tele monitor sent back to tele monitor
--- NOTE | 2019-08-01 21:30 | NUR ---
mrsa swab sent
[2019-08-01] MEDS ORDERED: MEROPENEM 1GM IVPB 100 ML IV SCH (22:00)
--- NOTE | 2019-08-01 22:00 | NUR ---
report given to [facility] transport team, pts spouse at bedside all questions and concerns addressed, all pts property taken with spouse, pt went with iv, triple lumen ij, and f/c
== END 2019-08-01 22:05 | disposition short-term general hospital (02) | DRG 871 ==
LOC: EDBD 23:29 → ER 23:35 → OVERFLOW 23:36 → ICU WEST 07-30 08:43 → OVERFLOW 07-30 08:43 → ICU WEST 07-30 08:48 → TELE-CENTR 08-01 12:49
PROVIDERS: ADMIT Nurse Practitioner; ATTEND Internal Medicine
PROC: 5A1945Z Respiratory Ventilation, 24-96 Consecutive Hours (ICD-10-PCS; principal; 2019-07-30)
PROC: 0BH17EZ Insertion of Endotracheal Airway into Trachea, Via Natural or Artificial Opening (ICD-10-PCS; 2019-07-30)
PROC: 5A09357 Assistance with Respiratory Ventilation, Less than 24 Consecutive Hours, Continuous Positive Airway Pressure (ICD-10-PCS; 2019-08-01)
DX: A41.9 Sepsis, unspecified organism (principal); J69.0 Pneumonitis due to inhalation of food and vomit; J96.00 Acute respiratory failure, unspecified whether with hypoxia or hypercapnia; J98.11 Atelectasis; K92.2 Gastrointestinal hemorrhage, unspecified; N39.0 Urinary tract infection, site not specified; J44.1 Chronic obstructive pulmonary disease with (acute) exacerbation; J45.901 Unspecified asthma with (acute) exacerbation; E03.9 Hypothyroidism, unspecified; E78.5 Hyperlipidemia, unspecified; G40.909 Epilepsy, unspecified, not intractable, without status epilepticus; G80.9 Cerebral palsy, unspecified; Z79.899 Other long term (current) drug therapy; Z80.3 Family history of malignant neoplasm of breast; Z82.49 Family history of ischemic heart disease and other diseases of the circulatory system; Z93.1 Gastrostomy status; Z90.49 Acquired absence of other specified parts of digestive tract; Z88.5 Allergy status to narcotic agent; Z88.8 Allergy status to other drugs, medicaments and biological substances
CPT/HCPCS: 31500; 36415; 36600; 71045; 80053; 80307; 81001; 82805; 82962; 83605; 83735; 83880; 84484; 85025; 85610; 85730; 87040; 87070; 87077; 87081; 87186; 87205; 87804; 93005; 94002; 94003; 94640; 94660; 96361; 96365; 96366; 96375; C9113; G0378; J0330; J0696; J1956; J2001; J2185; J2250; J2704; J7042; J7060

== ENCOUNTER 2019-11-05 22:44 | Emergency (ER) | payer OTHER ==
[~2019-11-05] VITALS: Ht 160 cm; Wt 63.5 kg
[~2019-11-05 22:44] MED LIST changes: +BUDE2SUS3 IN; -CEFP200T15 PO
[2019-11-05 23:18] LABS: Basophils # (auto) 0 10 ^3/uL (0-0.2); Basophils % (auto) 0.4 % (0.0-2.0); Eosinophils # (auto) 0.1 10 ^3/uL (0-0.8); Eosinophils % (auto) 1.5 % (0.0-7.0); Hematocrit 30.1 % (36.0-46.0); Lymphocytes # (auto) 0.9 10 ^3/uL (0.4-5.4); Lymphocytes % (auto) 17.9 % (10.0-50.0); Mean Corpuscular Hemoglobin 30.8 pg (28.0-32.0); Mean Corpuscular Hgb Conc. 33.3 g/dL (32.0-36.0); Mean Corpuscular Volume 92.5 fL (80.0-100.0); Monocytes # (auto) 0.3 10 ^3/uL (0-1.3); Monocytes % (auto) 5.7 % (0.0-12.0); Neutrophils # (auto) 3.8 10 ^3/uL (1.6-8.6); Neutrophils % (auto) 74.5 % (37.0-80.0); Nucleated Red Blood Cells % 0.1 %; Platelet Count (auto) 235 10^3/uL (140-450); Red Blood Cells 3.25 10^6/uL (4.0-5.20); Red Cell Distribution Width 16.5 % (11.8-14.3); White Blood Cell 5.1 10^3/uL (4.4-10.8)
[2019-11-05 23:37] LABS: Albumin 2.8 g/dL (3.4-5.0); Anion Gap 0 (5-15); BUN/Creatinine Ratio 34.4; Blood Urea Nitrogen 22 mg/dL (7-18); Calcium 9.3 mg/dL (8.5-10.1); Carbon Dioxide 39 mmol/L (21-32); Chloride 98 mmol/L (98-107); GFR African American 124 mL/min; GFR Non-African American 102 mL/min; Glucose 101 mg/dL (74-106); Potassium 4.3 mmol/L (3.5-5.1); Sodium 137 mmol/L (136-145)
[2019-11-05 23:42] LABS: Alanine Aminotransferase 50 U/L (13-56); Alkaline Phosphatase 111 U/L (45-117); Aspartate Aminotransferase 37 U/L (15-37); Bilirubin, Total 0.1 mg/dL (0.2-1.0); Total Protein 7.9 g/dL (6.4-8.2)
[2019-11-06 00:51] LABS: Urine Bacteria MOD /hpf (None Seen); Urine Blood 1+ /uL (Negative); Urine Specific Gravity 1.007 (1.001-1.035); Urine WBC 385 /hpf (0 - 5); Urine WBC Clumps PRESENT /hpf (None Seen)
[2019-11-06 01:15] LABS: Urine Mucus FEW (None Seen)
[2019-11-06 04:01] VITALS: BP 109/60
[2019-11-06] MEDS ORDERED: cefTRIAXone 1GM/50ML D5W 50 ML IV ONE ×2 (04:07→04:30)
== END 2019-11-06 05:45 | disposition home or self-care (01) ==
LOC: EDBD 22:44 → ER 22:46
DX: E86.0 Dehydration (principal); N39.0 Urinary tract infection, site not specified; R42 Dizziness and giddiness; Z88.6 Allergy status to analgesic agent; Z88.1 Allergy status to other antibiotic agents
CPT/HCPCS: 36415; 70450; 71045; 80053; 81001; 84484; 85025; 93005; 96365; 99285; J7030

== ENCOUNTER 2019-11-15 12:54 | Inpatient (IN) | payer OTHER, SELFPAY ==
[~2019-11-15] VITALS: Ht 162.6 cm; Wt 84.1 kg
[2019-11-15] MEDS ORDERED: SODIUM CHLORIDE 0.9% 1,000 ML IV ONE ×2 (14:10→19:15)
[2019-11-15] MEDS ORDERED: SODIUM CHLORIDE 0.9% 500 ML IVB ONE (14:10)
[2019-11-15 14:33] LABS: Urine WBC None Seen /hpf (0 - 5)
[2019-11-15 14:58] LABS: Urine Bacteria NONE SEEN /hpf (None Seen); Urine Blood Negative /uL (Negative); Urine Specific Gravity 1.006 (1.001-1.035)
[2019-11-15 15:01] LABS: Basophils # (auto) 0 10 ^3/uL (0-0.2); Basophils % (auto) 0.4 % (0.0-2.0); Eosinophils # (auto) 0.1 10 ^3/uL (0-0.8); Eosinophils % (auto) 1.4 % (0.0-7.0); Hematocrit 27.8 % (36.0-46.0); Hemoglobin 8.9 g/dL (12.2-16.2); Lymphocytes # (auto) 0.5 10 ^3/uL (0.4-5.4); Lymphocytes % (auto) 10.1 % (10.0-50.0); Mean Corpuscular Hemoglobin 29.8 pg (28.0-32.0); Mean Corpuscular Hgb Conc. 31.9 g/dL (32.0-36.0); Mean Corpuscular Volume 93.5 fL (80.0-100.0); Monocytes # (auto) 0.3 10 ^3/uL (0-1.3); Monocytes % (auto) 6.4 % (0.0-12.0); Neutrophils # (auto) 4.4 10 ^3/uL (1.6-8.6); Neutrophils % (auto) 81.7 % (37.0-80.0); Nucleated Red Blood Cells % 0.2 %; Platelet Count (auto) 205 10^3/uL (140-450); Red Blood Cells 2.97 10^6/uL (4.0-5.20); Red Cell Distribution Width 17.3 % (11.8-14.3); White Blood Cell 5.4 10^3/uL (4.4-10.8)
[2019-11-15 15:56] LABS: Alcohol, Urine < 3.0 mg/dL (0-5); Amphetamine Screen, Urine NEGATIVE (NEGATIVE); Barbiturate Scree,Urine NEGATIVE (NEGATIVE); Benzodiazephine Screen, Urine NEGATIVE (NEGATIVE); Cannabinoid Screen, Urine NEGATIVE (NEGATIVE); Cocaine Screen, Urine NEGATIVE (NEGATIVE); Opiate Scree,Urine NEGATIVE (NEGATIVE); Phencyclidine Screen, Urine NEGATIVE (NEGATIVE)
[2019-11-15 16:00] LABS: Magnesium 2.5 mg/dL (1.6-2.6)
[2019-11-15] MEDS ORDERED: DEXTROSE 50% SYRINGE 50 ML IV ONE ×2 (16:28→20:44)
[2019-11-15 16:36] LABS: Alanine Aminotransferase 47 U/L (13-56); Albumin 2.7 g/dL (3.4-5.0); Anion Gap 8 (5-15); Aspartate Aminotransferase 38 U/L (15-37); BUN/Creatinine Ratio 38.5; Blood Urea Nitrogen 30 mg/dL (7-18); Calcium 9.5 mg/dL (8.5-10.1); Carbon Dioxide 33 mmol/L (21-32); Chloride 99 mmol/L (98-107); GFR African American 99 mL/min; GFR Non-African American 81 mL/min; Glucose 68 mg/dL (74-106); Potassium 5.5 mmol/L (3.5-5.1); Sodium 140 mmol/L (136-145)
[2019-11-15 16:39] LABS: Alkaline Phosphatase 109 U/L (45-117); Bilirubin, Total < 0.1 mg/dL (0.2-1.0); Total Protein 7.3 g/dL (6.4-8.2)
[2019-11-15] MEDS ORDERED: DEXTROSE (50%) 50ML SYRG IV ONE (16:45)
[2019-11-15] MEDS ORDERED: AZITHROMYCIN 500MG/ 250ML 250 ML IV ONE (18:15)
[2019-11-15] MEDS ORDERED: cefTRIAXone 1GM/50ML D5W 50 ML IV ONE (18:15)
[2019-11-15] MEDS ORDERED: ACETAMINOPHEN 500 MG TAB PO PRN (19:30)
[2019-11-15] MEDS ORDERED: LACTULOSE 20Gm/30ML SOLN PO PRN (19:30)
[2019-11-15] MEDS ORDERED: ONDANSETRON HCL 4 MG/2 ML VIAL IV PRN (19:30)
[2019-11-15] MEDS ORDERED: MORPHINE SULF INJ 2 MG/ML SYRINGE 1ML IV PRN (19:30)
[2019-11-15] MEDS ORDERED: traMADol HCL 50 MG TAB PO PRN (19:30)
[2019-11-15] MEDS ORDERED: NITROGLYCERIN 0.4 MG SL TAB SL PRN (19:30)
[2019-11-15] MEDS ORDERED: SODIUM ZIRCONIUM CYCL 10 GM PAK GT ONE (19:30)
[2019-11-15] MEDS ORDERED: FUROSEMIDE 20 MG/2 ML VIAL IV ONE (19:30)
[2019-11-15] MEDS ORDERED: ALBUTEROL SULF 2.5 MG/0.5ML(0.5%) NEB SOLN NEB PRN (19:30)
[2019-11-15] MEDS ORDERED: DEXTROSE (50%) 50ML SYRG IV PRN (19:30)
[2019-11-15] MEDS: ACCU-CHEK COMFORT CURVE STRIP VI SCH (20:09)
[2019-11-15 21:26] VITALS: BP 103/48
[2019-11-15 22:00] VITALS: BP 98/59
[2019-11-15] MEDS: GENTAMICIN SULF 0.3% OPTH(EYE) OINT 3.5GM EACHEYE SCH (22:00)
[2019-11-15] MEDS: D5W/SOD CHLO 0.9% 1,000 ML IV SCH (23:59)
[2019-11-16] VITALS (7 sets, daily range): BP systolic 95–121; BP diastolic 50–73
[2019-11-16] MEDS: IPRATROPIUM BROM 0.5 MG/2.5ML INH SOL NEB SCH ×5 (00:18→22:44)
[2019-11-16] MEDS: ALBUTEROL SULF 2.5 MG/0.5ML(0.5%) NEB SOLN NEB SCH ×5 (00:18→22:44)
[2019-11-16] MEDS: ACCU-CHEK COMFORT CURVE STRIP VI SCH ×6 (00:47→20:00)
[2019-11-16] MEDS: D5W/SOD CHLO 0.9% 1,000 ML IV SCH ×2 (05:30→15:30)
[2019-11-16 06:00] LABS: Basophils # (auto) 0 10 ^3/uL (0-0.2); Basophils % (auto) 0.1 % (0.0-2.0); Eosinophils # (auto) 0 10 ^3/uL (0-0.8); Eosinophils % (auto) 0.2 % (0.0-7.0); Hematocrit 29.3 % (36.0-46.0); Hemoglobin 9.4 g/dL (12.2-16.2); Lymphocytes # (auto) 0.5 10 ^3/uL (0.4-5.4); Lymphocytes % (auto) 3.8 % (10.0-50.0); Mean Corpuscular Hemoglobin 29.6 pg (28.0-32.0); Mean Corpuscular Volume 92.6 fL (80.0-100.0); Monocytes # (auto) 0.6 10 ^3/uL (0-1.3); Monocytes % (auto) 4.2 % (0.0-12.0); Neutrophils # (auto) 12.3 10 ^3/uL (1.6-8.6); Neutrophils % (auto) 91.7 % (37.0-80.0); Nucleated Red Blood Cells % 0.1 %; Platelet Count (auto) 204 10^3/uL (140-450); Red Blood Cells 3.17 10^6/uL (4.0-5.20); White Blood Cell 13.4 10^3/uL (4.4-10.8)
[2019-11-16 06:05] LABS: Albumin 2.7 g/dL (3.4-5.0); BUN/Creatinine Ratio 32.9; Bilirubin, Total 0.2 mg/dL (0.2-1.0); Calcium 9.4 mg/dL (8.5-10.1); Total Protein 7.2 g/dL (6.4-8.2)
[2019-11-16] MEDS ORDERED: cefTRIAXone 1GM/50ML D5W 50 ML IV SCH (09:00)
[2019-11-16] MEDS: ENOXAPARIN SOD 40 MG/0.4 ML SYRINGE SC SCH (09:06)
[2019-11-16] MEDS: AZITHROMYCIN 500MG/ 250ML 250 ML IV SCH (10:05)
[2019-11-16] MEDS: Glucerna 1.2 Cal 1Liter BOTTLE GT SCH (13:28)
[2019-11-16] MEDS: GENTAMICIN SULF 0.3% OPTH(EYE) OINT 3.5GM EACHEYE SCH ×2 (13:39→22:32)
[2019-11-16] MEDS ORDERED: FUROSEMIDE 40 MG/4 ML VIAL IV ONE (14:00)
[2019-11-16] MEDS ORDERED: methylPREDNISolone SOD SUCC 125 MG/2 ML VL IV ONE (14:15)
[2019-11-16] MEDS ORDERED: FUROSEMIDE INJECTION 10 ML ONE (14:48)
[2019-11-16] MEDS ORDERED: ALBUTEROL SULF 2.5 MG/0.5ML(0.5%) NEB SOLN NEB PRN (15:30)
[2019-11-16 16:16] LABS: INR 1.01 (0.9-1.15); Partial Thromboplastin Time 35.4 sec (23.64-32.05)
[2019-11-16] MEDS: PIPERACILLIN-TAZO 4.5GM 100 ML IV SCH (19:12)
[2019-11-16] MEDS: methylPREDNISolone SOD SUCC 40 MG/ML VL IV SCH (19:12)
[2019-11-16] MEDS ORDERED: methylPREDNISolone SOD SUCC 40 MG/ML VL IV SCH (22:00)
[2019-11-16] MEDS: LINEZOLID 600MG/300ML 300 ML IV SCH (22:32)
[2019-11-16] MEDS: ACETYLCYSTEINE 10 %(100MG/ML) SOL 4ML NEB SCH (22:45)
[2019-11-17] VITALS (12 sets, daily range): BP systolic 97–124; BP diastolic 57–77
[2019-11-17] MEDS: D5W/SOD CHLO 0.9% 1,000 ML IV SCH ×3 (01:30→21:30)
[2019-11-17] MEDS: ALBUTEROL SULF 2.5 MG/0.5ML(0.5%) NEB SOLN NEB SCH ×6 (02:13→22:09)
[2019-11-17] MEDS: IPRATROPIUM BROM 0.5 MG/2.5ML INH SOL NEB SCH ×6 (02:13→22:09)
[2019-11-17] MEDS: ACCU-CHEK COMFORT CURVE STRIP VI SCH ×6 (04:00→20:00)
[2019-11-17 04:40] LABS: Basophils # (auto) 0 10 ^3/uL (0-0.2); Eosinophils # (auto) 0 10 ^3/uL (0-0.8); Hematocrit 28.8 % (36.0-46.0); Hemoglobin 9.3 g/dL (12.2-16.2); Lymphocytes # (auto) 0.4 10 ^3/uL (0.4-5.4); Lymphocytes % (auto) 3.9 % (10.0-50.0); Mean Corpuscular Hemoglobin 29.5 pg (28.0-32.0); Mean Corpuscular Hgb Conc. 32.2 g/dL (32.0-36.0); Mean Corpuscular Volume 91.6 fL (80.0-100.0); Monocytes # (auto) 0.1 10 ^3/uL (0-1.3); Neutrophils # (auto) 10.9 10 ^3/uL (1.6-8.6); Neutrophils % (auto) 95.1 % (37.0-80.0); Nucleated Red Blood Cells % 0.1 %; Platelet Count (auto) 201 10^3/uL (140-450); Red Blood Cells 3.14 10^6/uL (4.0-5.20); Red Cell Distribution Width 16.4 % (11.8-14.3); White Blood Cell 11.5 10^3/uL (4.4-10.8)
[2019-11-17 05:00] LABS: Albumin 2.6 g/dL (3.4-5.0); BUN/Creatinine Ratio 20.7; Calcium 9.5 mg/dL (8.5-10.1); Potassium 3.4 mmol/L (3.5-5.1)
[2019-11-17 05:03] LABS: Bilirubin, Total 0.4 mg/dL (0.2-1.0); Total Protein 7.4 g/dL (6.4-8.2)
[2019-11-17] MEDS: ACETYLCYSTEINE 10 %(100MG/ML) SOL 4ML NEB SCH ×3 (06:22→18:47)
[2019-11-17] MEDS: PIPERACILLIN-TAZO 4.5GM 100 ML IV SCH ×5 (06:42→23:56)
[2019-11-17] MEDS: methylPREDNISolone SOD SUCC 40 MG/ML VL IV SCH ×5 (06:43→23:56)
[2019-11-17] MEDS: AZITHROMYCIN 500MG/ 250ML 250 ML IV SCH (09:25)
[2019-11-17] MEDS: LINEZOLID 600MG/300ML 300 ML IV SCH ×2 (09:26→21:54)
[2019-11-17] MEDS: ENOXAPARIN SOD 40 MG/0.4 ML SYRINGE SC SCH (09:26)
[2019-11-17] MEDS: GENTAMICIN SULF 0.3% OPTH(EYE) OINT 3.5GM EACHEYE SCH ×2 (09:26→21:54)
[2019-11-17] MEDS ORDERED: POTASSIUM CHLORIDE 40 MEQ, LIDOCAINE 1% (LOCAL ANESTH.) 4 ML in SODIUM CHL 0.9% 100 ML IV ONE (10:00)
[2019-11-18] VITALS (16 sets, daily range): BP systolic 100–144; BP diastolic 52–102
[2019-11-18] MEDS: ACCU-CHEK COMFORT CURVE STRIP VI SCH ×6 (00:11→20:00)
[2019-11-18] MEDS: IPRATROPIUM BROM 0.5 MG/2.5ML INH SOL NEB SCH ×6 (02:30→22:56)
[2019-11-18] MEDS: ALBUTEROL SULF 2.5 MG/0.5ML(0.5%) NEB SOLN NEB SCH ×6 (02:30→22:56)
[2019-11-18] MEDS: methylPREDNISolone SOD SUCC 40 MG/ML VL IV SCH ×4 (05:32→23:34)
[2019-11-18] MEDS: PIPERACILLIN-TAZO 4.5GM 100 ML IV SCH ×2 (05:32→12:13)
[2019-11-18] MEDS: ACETYLCYSTEINE 10 %(100MG/ML) SOL 4ML NEB SCH ×3 (07:40→22:00)
[2019-11-18] MEDS ORDERED: HEPARIN SODIUM (PORCINE) 5000 UNITS/ML 1ML VIAL ONE (07:42)
[2019-11-18] MEDS: LINEZOLID 600MG/300ML 300 ML IV SCH ×2 (09:44→21:15)
[2019-11-18] MEDS: AZITHROMYCIN 500MG/ 250ML 250 ML IV SCH (09:45)
[2019-11-18] MEDS: ENOXAPARIN SOD 40 MG/0.4 ML SYRINGE SC SCH (09:45)
[2019-11-18] MEDS: GENTAMICIN SULF 0.3% OPTH(EYE) OINT 3.5GM EACHEYE SCH ×2 (10:57→21:15)
[2019-11-18] MEDS ORDERED: BUMETANIDE 2.5mg/10ml (0.25 mg/ml) INJ IV ONE (14:15)
[2019-11-18] MEDS: PIPERACILLIN-TAZOB 3.375GM 100 ML IV SCH ×2 (18:02→23:35)
[2019-11-18] MEDS ORDERED: PIPERACILLIN-TAZO 4.5GM 100 ML IV SCH (20:00)
[2019-11-19] VITALS (11 sets, daily range): BP systolic 102–167; BP diastolic 60–94
[2019-11-19] MEDS: ACCU-CHEK COMFORT CURVE STRIP VI SCH ×6 (00:04→22:20)
[2019-11-19] MEDS: IPRATROPIUM BROM 0.5 MG/2.5ML INH SOL NEB SCH ×5 (02:43→18:43)
[2019-11-19] MEDS: ALBUTEROL SULF 2.5 MG/0.5ML(0.5%) NEB SOLN NEB SCH ×5 (02:43→18:43)
[2019-11-19] MEDS: PIPERACILLIN-TAZOB 3.375GM 100 ML IV SCH ×3 (05:52→19:25)
[2019-11-19] MEDS: methylPREDNISolone SOD SUCC 40 MG/ML VL IV SCH ×3 (05:52→19:24)
[2019-11-19] MEDS: ACETYLCYSTEINE 10 %(100MG/ML) SOL 4ML NEB SCH ×2 (06:44→14:31)
[2019-11-19] MEDS: AZITHROMYCIN 500MG/ 250ML 250 ML IV SCH (09:33)
[2019-11-19] MEDS: ENOXAPARIN SOD 40 MG/0.4 ML SYRINGE SC SCH (09:33)
[2019-11-19] MEDS: LINEZOLID 600MG/300ML 300 ML IV SCH ×2 (09:33→22:20)
[2019-11-19] MEDS: GENTAMICIN SULF 0.3% OPTH(EYE) OINT 3.5GM EACHEYE SCH ×2 (09:34→22:20)
[2019-11-19] MEDS ORDERED: TUBERCULIN PPD 5 UNIT/0.1 ML ID ONE (18:45)
[2019-11-20] VITALS (10 sets, daily range): BP systolic 95–126; BP diastolic 54–77
[2019-11-20] MEDS: methylPREDNISolone SOD SUCC 40 MG/ML VL IV SCH ×4 (00:05→18:00)
[2019-11-20] MEDS: PIPERACILLIN-TAZOB 3.375GM 100 ML IV SCH ×4 (00:05→18:00)
[2019-11-20] MEDS: ACCU-CHEK COMFORT CURVE STRIP VI SCH ×6 (00:20→20:00)
[2019-11-20] MEDS: IPRATROPIUM BROM 0.5 MG/2.5ML INH SOL NEB SCH ×3 (06:49→22:03)
[2019-11-20] MEDS: ALBUTEROL SULF 2.5 MG/0.5ML(0.5%) NEB SOLN NEB SCH ×3 (06:50→22:03)
[2019-11-20] MEDS ORDERED: MORPHINE SULF INJ 2 MG/ML SYRINGE 1ML IV PRN (09:30)
[2019-11-20] MEDS: AZITHROMYCIN 500MG/ 250ML 250 ML IV SCH (09:45)
[2019-11-20] MEDS: GENTAMICIN SULF 0.3% OPTH(EYE) OINT 3.5GM EACHEYE SCH ×2 (10:00→22:00)
[2019-11-20] MEDS: ENOXAPARIN SOD 40 MG/0.4 ML SYRINGE SC SCH (10:00)
[2019-11-20 10:11] LABS: Hematocrit 28.2 % (36.0-46.0); Hemoglobin 9.1 g/dL (12.2-16.2); Mean Corpuscular Hemoglobin 29.9 pg (28.0-32.0); Mean Corpuscular Hgb Conc. 32.3 g/dL (32.0-36.0); Mean Corpuscular Volume 92.4 fL (80.0-100.0); Platelet Count (auto) 257 10^3/uL (140-450); Red Blood Cells 3.06 10^6/uL (4.0-5.20); Red Cell Distribution Width 16.8 % (11.8-14.3); White Blood Cell 9.8 10^3/uL (4.4-10.8)
[2019-11-20 10:14] LABS: Band Neutrophils % (manual) 0; Basophils % (manual) 0 (0.0-2.0); Blast Cells 0; Eosinophils % (manual) 0 (0-7); Metamyelocytes % 0; Myelocytes % 0; Promyelocytes % 0; Reactive Lymphocytes 0
[2019-11-20 10:35] LABS: BUN/Creatinine Ratio 32.4; Calcium 8.7 mg/dL (8.5-10.1); Potassium 3.9 mmol/L (3.5-5.1)
[2019-11-20 10:51] LABS: Lymphocytes % (manual) 8 (10.0-50.0); Monocytes % (manual) 3 (0-12)
[2019-11-20] MEDS: LINEZOLID 600MG/300ML 300 ML IV SCH ×2 (11:30→22:00)
[2019-11-20] MEDS ORDERED: FUROSEMIDE 40 MG/4 ML VIAL IV ONE (19:00)
[2019-11-20] MEDS ORDERED: FUROSEMIDE INJECTION 10 ML ONE (19:50)
[2019-11-21] VITALS (11 sets, daily range): BP systolic 91–120; BP diastolic 43–74
[2019-11-21] MEDS: ACCU-CHEK COMFORT CURVE STRIP VI SCH ×5 (04:13→17:57)
[2019-11-21] MEDS: methylPREDNISolone SOD SUCC 40 MG/ML VL IV SCH ×4 (06:00→17:50)
[2019-11-21] MEDS: PIPERACILLIN-TAZOB 3.375GM 100 ML IV SCH ×4 (06:00→18:00)
[2019-11-21] MEDS: ALBUTEROL SULF 2.5 MG/0.5ML(0.5%) NEB SOLN NEB SCH ×3 (06:12→22:34)
[2019-11-21] MEDS: IPRATROPIUM BROM 0.5 MG/2.5ML INH SOL NEB SCH ×3 (06:12→22:34)
[2019-11-21] MEDS: AZITHROMYCIN 500MG/ 250ML 250 ML IV SCH (09:58)
[2019-11-21] MEDS: ENOXAPARIN SOD 40 MG/0.4 ML SYRINGE SC SCH (09:58)
[2019-11-21] MEDS: GENTAMICIN SULF 0.3% OPTH(EYE) OINT 3.5GM EACHEYE SCH ×2 (09:58→22:06)
[2019-11-21] MEDS: LINEZOLID 600MG/300ML 300 ML IV SCH ×2 (11:47→22:06)
[2019-11-21] MEDS ORDERED: DEXTROSE (50%) 50ML SYRG IV PRN (15:15)
[2019-11-21] MEDS: InsuLIN REG 1unit/0.01ml Soln (100units/ml) SC SCH (17:58)
[2019-11-21] MEDS: Glucerna 1.2 Cal 1Liter BOTTLE GT SCH (18:00)
[2019-11-22] VITALS (9 sets, daily range): BP systolic 95–109; BP diastolic 54–70
[2019-11-22] MEDS: methylPREDNISolone SOD SUCC 40 MG/ML VL IV SCH ×4 (00:02→20:12)
[2019-11-22] MEDS: PIPERACILLIN-TAZOB 3.375GM 100 ML IV SCH ×4 (00:02→20:11)
[2019-11-22] MEDS: InsuLIN REG 1unit/0.01ml Soln (100units/ml) SC SCH ×4 (00:03→18:02)
[2019-11-22] MEDS: ACCU-CHEK COMFORT CURVE STRIP VI SCH ×4 (00:03→18:01)
[2019-11-22 05:50] LABS: Basophils # (auto) 0 10 ^3/uL (0-0.2); Eosinophils # (auto) 0 10 ^3/uL (0-0.8); Hematocrit 31.5 % (36.0-46.0); Lymphocytes # (auto) 0.7 10 ^3/uL (0.4-5.4); Lymphocytes % (auto) 6.2 % (10.0-50.0); Mean Corpuscular Hemoglobin 29.5 pg (28.0-32.0); Mean Corpuscular Hgb Conc. 31.8 g/dL (32.0-36.0); Mean Corpuscular Volume 92.6 fL (80.0-100.0); Monocytes # (auto) 0.3 10 ^3/uL (0-1.3); Monocytes % (auto) 2.6 % (0.0-12.0); Neutrophils # (auto) 10.1 10 ^3/uL (1.6-8.6); Neutrophils % (auto) 91.2 % (37.0-80.0); Platelet Count (auto) 287 10^3/uL (140-450); Red Cell Distribution Width 16.4 % (11.8-14.3)
[2019-11-22 06:05] LABS: Albumin 2.5 g/dL (3.4-5.0); BUN/Creatinine Ratio 38.6; Potassium 3.8 mmol/L (3.5-5.1)
[2019-11-22 06:08] LABS: Bilirubin, Total 0.2 mg/dL (0.2-1.0); Total Protein 7.1 g/dL (6.4-8.2)
[2019-11-22] MEDS: ALBUTEROL SULF 2.5 MG/0.5ML(0.5%) NEB SOLN NEB SCH ×3 (06:19→21:58)
[2019-11-22] MEDS: IPRATROPIUM BROM 0.5 MG/2.5ML INH SOL NEB SCH ×3 (06:19→21:58)
[2019-11-22] MEDS: AZITHROMYCIN 500MG/ 250ML 250 ML IV SCH (10:29)
[2019-11-22] MEDS: ENOXAPARIN SOD 40 MG/0.4 ML SYRINGE SC SCH (10:29)
[2019-11-22] MEDS: LINEZOLID 600MG/300ML 300 ML IV SCH ×2 (10:29→21:25)
[2019-11-22] MEDS: GENTAMICIN SULF 0.3% OPTH(EYE) OINT 3.5GM EACHEYE SCH ×2 (10:30→21:25)
[2019-11-23] VITALS: BP 89/56
[2019-11-23] MEDS: methylPREDNISolone SOD SUCC 40 MG/ML VL IV SCH ×4 (00:14→17:59)
[2019-11-23] MEDS: PIPERACILLIN-TAZOB 3.375GM 100 ML IV SCH ×4 (00:15→17:59)
[2019-11-23] MEDS: ACCU-CHEK COMFORT CURVE STRIP VI SCH ×4 (00:18→17:59)
[2019-11-23] MEDS: InsuLIN REG 1unit/0.01ml Soln (100units/ml) SC SCH ×4 (00:18→18:00)
[2019-11-23] MEDS ORDERED: SODIUM CHLORIDE 0.9% 1,000 ML IV ONE (00:30)
[2019-11-23 04:00] VITALS: BP 112/68
[2019-11-23 06:04] LABS: Albumin 2.4 g/dL (3.4-5.0); Calcium 8.7 mg/dL (8.5-10.1); Magnesium 2.1 mg/dL (1.6-2.6)
[2019-11-23 06:06] LABS: % Iron Saturation 21.1 % (15-50)
[2019-11-23 06:07] LABS: BUN/Creatinine Ratio 31.3; Bilirubin, Total 0.3 mg/dL (0.2-1.0); Total Protein 6.6 g/dL (6.4-8.2)
[2019-11-23] MEDS: IPRATROPIUM BROM 0.5 MG/2.5ML INH SOL NEB SCH ×3 (06:46→22:03)
[2019-11-23] MEDS: ALBUTEROL SULF 2.5 MG/0.5ML(0.5%) NEB SOLN NEB SCH ×3 (06:46→22:03)
[2019-11-23 07:59] VITALS: BP 101/56
[2019-11-23 08:45] LABS: Basophils # (auto) 0 10 ^3/uL (0-0.2); Basophils % (auto) 0.1 % (0.0-2.0); Eosinophils # (auto) 0 10 ^3/uL (0-0.8); Hemoglobin 9.9 g/dL (12.2-16.2); Lymphocytes # (auto) 0.4 10 ^3/uL (0.4-5.4); Lymphocytes % (auto) 4.4 % (10.0-50.0); Mean Corpuscular Hemoglobin 30.5 pg (28.0-32.0); Mean Corpuscular Volume 92.7 fL (80.0-100.0); Monocytes # (auto) 0.2 10 ^3/uL (0-1.3); Monocytes % (auto) 1.8 % (0.0-12.0); Neutrophils # (auto) 9.2 10 ^3/uL (1.6-8.6); Neutrophils % (auto) 93.7 % (37.0-80.0); Platelet Count (auto) 289 10^3/uL (140-450); Red Blood Cells 3.24 10^6/uL (4.0-5.20); White Blood Cell 9.9 10^3/uL (4.4-10.8)
[2019-11-23] MEDS: LINEZOLID 600MG/300ML 300 ML IV SCH ×2 (10:37→21:56)
[2019-11-23] MEDS: AZITHROMYCIN 500MG/ 250ML 250 ML IV SCH (10:37)
[2019-11-23] MEDS: ENOXAPARIN SOD 40 MG/0.4 ML SYRINGE SC SCH (10:37)
[2019-11-23] MEDS: GENTAMICIN SULF 0.3% OPTH(EYE) OINT 3.5GM EACHEYE SCH ×2 (10:37→22:06)
[2019-11-23 11:55] VITALS: BP 98/65
[2019-11-23] MEDS: Glucerna 1.2 Cal 1Liter BOTTLE GT SCH (12:33)
[2019-11-23 16:00] VITALS: BP 100/60
[2019-11-23 20:00] VITALS: BP 91/57
[2019-11-24] VITALS (16 sets, daily range): BP systolic 91–121; BP diastolic 42–74
[2019-11-24] MEDS: PIPERACILLIN-TAZOB 3.375GM 100 ML IV SCH ×5 (00:30→23:45)
[2019-11-24] MEDS: methylPREDNISolone SOD SUCC 40 MG/ML VL IV SCH ×3 (00:30→22:04)
[2019-11-24] MEDS: ACCU-CHEK COMFORT CURVE STRIP VI SCH ×5 (00:30→23:45)
[2019-11-24] MEDS: InsuLIN REG 1unit/0.01ml Soln (100units/ml) SC SCH ×5 (00:49→23:45)
[2019-11-24 04:58] LABS: Hematocrit 28.8 % (36.0-46.0); Hemoglobin 9.4 g/dL (12.2-16.2); Mean Corpuscular Hemoglobin 30.3 pg (28.0-32.0); Mean Corpuscular Hgb Conc. 32.6 g/dL (32.0-36.0); Platelet Count (auto) 311 10^3/uL (140-450); Red Cell Distribution Width 16.5 % (11.8-14.3); White Blood Cell 11.9 10^3/uL (4.4-10.8)
[2019-11-24 05:25] LABS: Band Neutrophils % (manual) 0; Basophils % (manual) 0 (0.0-2.0); Blast Cells 0; Eosinophils % (manual) 0 (0-7); Metamyelocytes % 0; Myelocytes % 0; Promyelocytes % 0; Reactive Lymphocytes 0
[2019-11-24 05:34] LABS: Albumin 2.5 g/dL (3.4-5.0); Calcium 8.9 mg/dL (8.5-10.1); Magnesium 2.2 mg/dL (1.6-2.6); Potassium 4.2 mmol/L (3.5-5.1)
[2019-11-24 05:39] LABS: BUN/Creatinine Ratio 30.9; Bilirubin, Total 0.2 mg/dL (0.2-1.0); Phosphorus 2.2 mg/dL (2.5-4.90); Total Protein 6.8 g/dL (6.4-8.2)
[2019-11-24] MEDS: IPRATROPIUM BROM 0.5 MG/2.5ML INH SOL NEB SCH ×3 (06:00→22:24)
[2019-11-24 06:06] LABS: Lymphocytes % (manual) 2 (10.0-50.0); Monocytes % (manual) 1 (0-12)
[2019-11-24] MEDS: ALBUTEROL SULF 2.5 MG/0.5ML(0.5%) NEB SOLN NEB SCH ×3 (06:55→22:24)
[2019-11-24] MEDS: GENTAMICIN SULF 0.3% OPTH(EYE) OINT 3.5GM EACHEYE SCH ×2 (10:09→22:03)
[2019-11-24] MEDS: AZITHROMYCIN 500MG/ 250ML 250 ML IV SCH (10:30)
[2019-11-24] MEDS: ENOXAPARIN SOD 40 MG/0.4 ML SYRINGE SC SCH (10:39)
[2019-11-24] MEDS: LINEZOLID 600MG/300ML 300 ML IV SCH ×2 (12:30→22:04)
[2019-11-24] MEDS ORDERED: Jevity 1.2 Cal/Fiber 1 Liter GT SCH (17:30)
[2019-11-24] MEDS: FLORASTOR (S. BOULARDII) 250 MG CAP PO SCH (22:04)
[2019-11-25] VITALS (24 sets, daily range): BP systolic 72–117; BP diastolic 37–68
[2019-11-25] MEDS: InsuLIN REG 1unit/0.01ml Soln (100units/ml) SC SCH ×3 (06:00→18:00)
[2019-11-25] MEDS: PIPERACILLIN-TAZOB 3.375GM 100 ML IV SCH ×3 (06:00→18:15)
[2019-11-25] MEDS: ACCU-CHEK COMFORT CURVE STRIP VI SCH ×3 (06:26→18:00)
[2019-11-25] MEDS: IPRATROPIUM BROM 0.5 MG/2.5ML INH SOL NEB SCH ×3 (07:16→22:03)
[2019-11-25] MEDS: ALBUTEROL SULF 2.5 MG/0.5ML(0.5%) NEB SOLN NEB SCH ×3 (07:16→22:03)
[2019-11-25 08:42] LABS: Basophils # (auto) 0 10 ^3/uL (0-0.2); Basophils % (auto) 0.6 % (0.0-2.0); Eosinophils # (auto) 0 10 ^3/uL (0-0.8); Eosinophils % (auto) 0.1 % (0.0-7.0); Hematocrit 31.8 % (36.0-46.0); Hemoglobin 10.5 g/dL (12.2-16.2); Lymphocytes # (auto) 1.2 10 ^3/uL (0.4-5.4); Lymphocytes % (auto) 17.3 % (10.0-50.0); Mean Corpuscular Hemoglobin 30.3 pg (28.0-32.0); Mean Corpuscular Hgb Conc. 32.9 g/dL (32.0-36.0); Mean Corpuscular Volume 92.1 fL (80.0-100.0); Monocytes # (auto) 0.7 10 ^3/uL (0-1.3); Monocytes % (auto) 9.8 % (0.0-12.0); Neutrophils # (auto) 4.9 10 ^3/uL (1.6-8.6); Neutrophils % (auto) 72.2 % (37.0-80.0); Platelet Count (auto) 269 10^3/uL (140-450); Red Blood Cells 3.46 10^6/uL (4.0-5.20); Red Cell Distribution Width 17.1 % (11.8-14.3); White Blood Cell 6.8 10^3/uL (4.4-10.8)
[2019-11-25 09:01] LABS: Albumin 2.7 g/dL (3.4-5.0); BUN/Creatinine Ratio 30.3; Calcium 9.2 mg/dL (8.5-10.1); Magnesium 2.3 mg/dL (1.6-2.6); Potassium 4.1 mmol/L (3.5-5.1)
[2019-11-25 09:10] LABS: Bilirubin, Total 0.3 mg/dL (0.2-1.0); Total Protein 6.9 g/dL (6.4-8.2)
[2019-11-25] MEDS: methylPREDNISolone SOD SUCC 40 MG/ML VL IV SCH ×2 (10:21→22:00)
[2019-11-25] MEDS: FLORASTOR (S. BOULARDII) 250 MG CAP PO SCH ×2 (10:21→22:00)
[2019-11-25] MEDS: ENOXAPARIN SOD 40 MG/0.4 ML SYRINGE SC SCH (10:21)
[2019-11-25] MEDS: LINEZOLID 600MG/300ML 300 ML IV SCH (10:21)
[2019-11-25] MEDS: GENTAMICIN SULF 0.3% OPTH(EYE) OINT 3.5GM EACHEYE SCH ×2 (10:22→22:00)
[2019-11-26] VITALS (51 sets, daily range): BP systolic 65–147; BP diastolic 36–73
[2019-11-26] MEDS: PIPERACILLIN-TAZOB 3.375GM 100 ML IV SCH ×5 (00:11→23:41)
[2019-11-26] MEDS: ACCU-CHEK COMFORT CURVE STRIP VI SCH ×4 (00:17→17:30)
[2019-11-26] MEDS: InsuLIN REG 1unit/0.01ml Soln (100units/ml) SC SCH ×4 (06:00→17:29)
[2019-11-26] MEDS: IPRATROPIUM BROM 0.5 MG/2.5ML INH SOL NEB SCH ×3 (06:13→22:43)
[2019-11-26] MEDS: ALBUTEROL SULF 2.5 MG/0.5ML(0.5%) NEB SOLN NEB SCH ×3 (06:13→22:43)
[2019-11-26] MEDS ORDERED: BENZOCAINE (DENTAL) 20 % SPRAY 60ML MT ONE (08:42)
[2019-11-26] MEDS ORDERED: LIDOCAINE HCL 2% TOP JELLY 5ML TOP ONE (08:43)
[2019-11-26] MEDS ORDERED: SODIUM CHLORIDE LOCK 10 ML ONE (08:43)
[2019-11-26] MEDS ORDERED: EPINEPHrine HCL 1 MG/1 ML AMP ONE (08:43)
[2019-11-26] MEDS ORDERED: LIDOCAINE 2%HCL (LOCAL ANESTH.) INJ 20ML MDV ONE (08:43)
[2019-11-26] MEDS ORDERED: fentaNYL CITRATE 100 MCG/2 ML VL ONE (08:44)
[2019-11-26] MEDS ORDERED: MIDAZOLAM HCL 5 MG/ML-1ML VIAL ONE (08:44)
[2019-11-26] MEDS ORDERED: ACETYLCYSTEINE 20%(200MG/ML) SOL 4ML NEB ONE (09:15)
[2019-11-26] MEDS: FLORASTOR (S. BOULARDII) 250 MG CAP PO SCH ×2 (10:00→22:00)
[2019-11-26] MEDS: ENOXAPARIN SOD 40 MG/0.4 ML SYRINGE SC SCH (10:00)
[2019-11-26] MEDS: methylPREDNISolone SOD SUCC 40 MG/ML VL IV SCH ×2 (10:05→22:23)
[2019-11-26] MEDS: GENTAMICIN SULF 0.3% OPTH(EYE) OINT 3.5GM EACHEYE SCH ×2 (10:06→22:23)
[2019-11-26] MEDS ORDERED: SUCCINYLCHOLINE CHLORIDE 20 MG/ML 10ML VIAL IV ONE (11:01)
[2019-11-26] MEDS ORDERED: ROCURONIUM 10MG/ML 10ML VIAL IV ONE ×3 (11:01→14:00)
[2019-11-26] MEDS ORDERED: ETOMIDATE (2MG/ML) 20ML VIAL IV ONE ×2 (11:01→12:30)
[2019-11-26] MEDS ORDERED: PROPOFOL 100 ML IV ONE (12:08)
[2019-11-26] MEDS: PROPOFOL 100 ML IV SCH ×2 (12:53→23:25)
[2019-11-26] MEDS ORDERED: MIDAZOLAM DRIP 50 mg/50mL 50 ML IV ONE (13:59)
[2019-11-26] MEDS: MIDAZOLAM DRIP 50 mg/50mL 50 ML IV SCH ×2 (15:07→21:09)
[2019-11-26 15:13] LABS: INR 1.07 (0.9-1.15); Partial Thromboplastin Time 23.8 sec (23.64-32.05)
[2019-11-26] MEDS ORDERED: ALBUMIN 5% 250 ML IV ONE (20:45)
[2019-11-26] MEDS ORDERED: SODIUM CHLORIDE 0.9% 1,000 ML IV ONE (20:45)
[2019-11-27] VITALS (80 sets, daily range): BP systolic 85–151; BP diastolic 29–82
[2019-11-27] MEDS: ACCU-CHEK COMFORT CURVE STRIP VI SCH ×4 (00:20→18:27)
[2019-11-27 04:13] LABS: INR 1.12 (0.9-1.15); Partial Thromboplastin Time 25.3 sec (23.64-32.05)
[2019-11-27] MEDS: InsuLIN REG 1unit/0.01ml Soln (100units/ml) SC SCH ×4 (05:35→18:27)
[2019-11-27] MEDS: PIPERACILLIN-TAZOB 3.375GM 100 ML IV SCH ×3 (05:35→18:30)
[2019-11-27] MEDS: MIDAZOLAM DRIP 50 mg/50mL 50 ML IV SCH (06:52)
[2019-11-27] MEDS: ALBUTEROL SULF 2.5 MG/0.5ML(0.5%) NEB SOLN NEB SCH ×3 (07:18→22:11)
[2019-11-27] MEDS: IPRATROPIUM BROM 0.5 MG/2.5ML INH SOL NEB SCH ×3 (07:18→22:11)
[2019-11-27] MEDS: ENOXAPARIN SOD 40 MG/0.4 ML SYRINGE SC SCH (10:00)
[2019-11-27] MEDS: FLORASTOR (S. BOULARDII) 250 MG CAP PO SCH ×2 (10:00→21:50)
[2019-11-27] MEDS: GENTAMICIN SULF 0.3% OPTH(EYE) OINT 3.5GM EACHEYE SCH ×2 (10:40→21:49)
[2019-11-27] MEDS ORDERED: fentaNYL CITRATE 100 MCG/2 ML VL ONE (10:44)
[2019-11-27] MEDS ORDERED: MIDAZOLAM HCL 1MG/1ML-2 ML VIAL ONE ×2 (10:44→11:38)
[2019-11-27] MEDS ORDERED: HYDROmorphone HCL 2 MG/ML VL ONE (10:44)
[2019-11-27] MEDS ORDERED: DexAMETHasone SOD PHOS 10MG/1ML VIAL INJ ONE (11:19)
[2019-11-27] MEDS ORDERED: LIDOCAINE W/ EPINEPHRINE 1% 20ML VIAL ONE (11:21)
[2019-11-27] MEDS ORDERED: ROCURONIUM 10MG/ML 10ML VIAL IV ONE (11:43)
[2019-11-27] MEDS: methylPREDNISolone SOD SUCC 40 MG/ML VL IV SCH ×2 (12:00→21:49)
[2019-11-27] MEDS ORDERED: HYDROmorphone HCL 2 MG/ML VL IV PRN (12:30)
[2019-11-27] MEDS ORDERED: ePHEDrine SULFATE 50 MG/ML AMP IV PRN (12:30)
[2019-11-27] MEDS ORDERED: MIDAZOLAM HCL 1MG/1ML-2 ML VIAL IV PRN (12:30)
[2019-11-27] MEDS ORDERED: MORPHINE SULFATE 4 MG/ML SYR/VIAL IV PRN (12:30)
[2019-11-27] MEDS ORDERED: ONDANSETRON HCL 4 MG/2 ML VIAL IV PRN (12:30)
[2019-11-27] MEDS ORDERED: LABETALOL HCL 5 MG/ML 4ML SYRINGE IV PRN (12:30)
[2019-11-27] MEDS ORDERED: MORPHINE SULF INJ 2 MG/ML SYRINGE 1ML IV PRN (15:45)
[2019-11-28] VITALS (26 sets, daily range): BP systolic 101–146; BP diastolic 47–75
[2019-11-28] MEDS: PIPERACILLIN-TAZOB 3.375GM 100 ML IV SCH ×4 (00:06→18:28)
[2019-11-28] MEDS: ACCU-CHEK COMFORT CURVE STRIP VI SCH ×4 (00:06→18:49)
[2019-11-28] MEDS: InsuLIN REG 1unit/0.01ml Soln (100units/ml) SC SCH ×4 (05:41→18:49)
[2019-11-28] MEDS: ALBUTEROL SULF 2.5 MG/0.5ML(0.5%) NEB SOLN NEB SCH ×2 (07:19→22:23)
[2019-11-28] MEDS: IPRATROPIUM BROM 0.5 MG/2.5ML INH SOL NEB SCH ×2 (07:19→22:22)
[2019-11-28] MEDS: methylPREDNISolone SOD SUCC 40 MG/ML VL IV SCH (10:27)
[2019-11-28] MEDS: ENOXAPARIN SOD 40 MG/0.4 ML SYRINGE SC SCH (10:27)
[2019-11-28] MEDS: FLORASTOR (S. BOULARDII) 250 MG CAP PO SCH ×2 (10:27→22:20)
[2019-11-28] MEDS: GENTAMICIN SULF 0.3% OPTH(EYE) OINT 3.5GM EACHEYE SCH ×2 (10:28→22:21)
[2019-11-28] MEDS: NYSTATIN TOPICAL POWDER 15GM TOP SCH ×2 (11:30→22:21)
[2019-11-28] MEDS: PROPOFOL 100 ML IV SCH (12:29)
[2019-11-28] MEDS: MIDAZOLAM DRIP 50 mg/50mL 50 ML IV SCH (14:00)
[2019-11-28] MEDS ORDERED: PANTOPRAZOLE 40 MG/10 ML VIAL INJ IV ONE (15:30)
[2019-11-28] MEDS ORDERED: MAGNESIUM SULFATE 1GM/100ML 200 ML IV ONE (18:47)
[2019-11-29] VITALS (14 sets, daily range): BP systolic 108–144; BP diastolic 41–79
[2019-11-29] MEDS: PIPERACILLIN-TAZOB 3.375GM 100 ML IV SCH ×2 (00:21→06:21)
[2019-11-29] MEDS: ACCU-CHEK COMFORT CURVE STRIP VI SCH ×4 (00:23→18:14)
[2019-11-29 04:17] LABS: Basophils # (auto) 0 10 ^3/uL (0-0.2); Basophils % (auto) 0.2 % (0.0-2.0); Eosinophils # (auto) 0 10 ^3/uL (0-0.8); Eosinophils % (auto) 0.2 % (0.0-7.0); Hematocrit 26.3 % (36.0-46.0); Lymphocytes # (auto) 1.8 10 ^3/uL (0.4-5.4); Lymphocytes % (auto) 18.5 % (10.0-50.0); Mean Corpuscular Hemoglobin 32.1 pg (28.0-32.0); Mean Corpuscular Hgb Conc. 34.1 g/dL (32.0-36.0); Mean Corpuscular Volume 94.2 fL (80.0-100.0); Monocytes % (auto) 10.6 % (0.0-12.0); Neutrophils % (auto) 70.5 % (37.0-80.0); Nucleated Red Blood Cells % 0.1 %; Platelet Count (auto) 370 10^3/uL (140-450); Red Blood Cells 2.79 10^6/uL (4.0-5.20); Red Cell Distribution Width 17.5 % (11.8-14.3); White Blood Cell 9.9 10^3/uL (4.4-10.8)
[2019-11-29 04:30] LABS: Albumin 2.5 g/dL (3.4-5.0); Calcium 8.2 mg/dL (8.5-10.1)
[2019-11-29 04:33] LABS: BUN/Creatinine Ratio 32.8
[2019-11-29 04:40] LABS: Bilirubin, Total 0.3 mg/dL (0.2-1.0); Total Protein 6.1 g/dL (6.4-8.2)
[2019-11-29 04:52] LABS: Potassium 2.9 mmol/L (3.5-5.1)
[2019-11-29] MEDS: InsuLIN REG 1unit/0.01ml Soln (100units/ml) SC SCH ×4 (06:00→18:00)
[2019-11-29] MEDS: ALBUTEROL SULF 2.5 MG/0.5ML(0.5%) NEB SOLN NEB SCH ×3 (06:21→22:58)
[2019-11-29] MEDS: IPRATROPIUM BROM 0.5 MG/2.5ML INH SOL NEB SCH ×3 (06:21→22:58)
[2019-11-29] MEDS: POTASSIUM CHL 20MEQ/100ML 100 ML IV SCH ×4 (08:45→13:00)
[2019-11-29] MEDS ORDERED: POTASSIUM EFFERVESENT TAB 25 MEQ GT ONE (09:15)
[2019-11-29] MEDS ORDERED: POTASSIUM CHLORIDE 20 MEQ, LIDOCAINE 1% (LOCAL ANESTH.) 2 ML in SODIUM CHL 0.9% 100 ML IV ONE (09:15)
[2019-11-29] MEDS: NYSTATIN TOPICAL POWDER 15GM TOP SCH ×2 (10:00→22:32)
[2019-11-29] MEDS: GENTAMICIN SULF 0.3% OPTH(EYE) OINT 3.5GM EACHEYE SCH ×2 (10:00→22:32)
[2019-11-29] MEDS: FLORASTOR (S. BOULARDII) 250 MG CAP PO SCH ×2 (10:34→22:32)
[2019-11-29] MEDS: methylPREDNISolone SOD SUCC 40 MG/ML VL IV SCH (10:34)
[2019-11-29] MEDS: PANTOPRAZOLE 40 MG/10 ML VIAL INJ IV SCH (10:34)
[2019-11-29] MEDS: ENOXAPARIN SOD 40 MG/0.4 ML SYRINGE SC SCH (10:35)
[2019-11-29] MEDS: MAGNESIUM SULFATE 1GM/100ML 100 ML IV SCH ×2 (10:51→12:16)
[2019-11-29] MEDS ORDERED: CIPROFLOXACIN 400MG/200ML 200 ML IV ONE (11:30)
[2019-11-29] MEDS: CIPROFLOXACIN 400MG/200ML 200 ML IV SCH (22:32)
[2019-11-29] MEDS: ACETYLCYSTEINE 10 %(100MG/ML) SOL 4ML NEB SCH (22:58)
[2019-11-29] MEDS: TOBRAMYCIN 300 MG/5 ML NEB SOLN NEB SCH (23:25)
[2019-11-30] VITALS (7 sets, daily range): BP systolic 102–153; BP diastolic 44–71
[2019-11-30] MEDS: ACCU-CHEK COMFORT CURVE STRIP VI SCH ×4 (00:18→17:30)
[2019-11-30] MEDS: InsuLIN REG 1unit/0.01ml Soln (100units/ml) SC SCH ×4 (06:00→17:29)
[2019-11-30] MEDS: TOBRAMYCIN 300 MG/5 ML NEB SOLN NEB SCH ×2 (06:22→22:40)
[2019-11-30] MEDS: IPRATROPIUM BROM 0.5 MG/2.5ML INH SOL NEB SCH ×3 (06:22→22:13)
[2019-11-30] MEDS: ACETYLCYSTEINE 10 %(100MG/ML) SOL 4ML NEB SCH ×3 (06:22→22:13)
[2019-11-30] MEDS: ALBUTEROL SULF 2.5 MG/0.5ML(0.5%) NEB SOLN NEB SCH ×3 (06:22→22:13)
[2019-11-30] MEDS: GENTAMICIN SULF 0.3% OPTH(EYE) OINT 3.5GM EACHEYE SCH ×2 (10:53→22:36)
[2019-11-30] MEDS: CIPROFLOXACIN 400MG/200ML 200 ML IV SCH ×2 (10:53→22:36)
[2019-11-30] MEDS: PANTOPRAZOLE 40 MG/10 ML VIAL INJ IV SCH (10:53)
[2019-11-30] MEDS: ENOXAPARIN SOD 40 MG/0.4 ML SYRINGE SC SCH (10:54)
[2019-11-30] MEDS: methylPREDNISolone SOD SUCC 40 MG/ML VL IV SCH (10:54)
[2019-11-30] MEDS: FLORASTOR (S. BOULARDII) 250 MG CAP PO SCH ×2 (10:54→22:35)
[2019-11-30] MEDS: NYSTATIN TOPICAL POWDER 15GM TOP SCH ×2 (10:55→22:35)
[2019-12-01 05:00] VITALS: BP 139/73
[2019-12-01 05:40] LABS: Basophils # (auto) 0 10 ^3/uL (0-0.2); Basophils % (auto) 0.2 % (0.0-2.0); Eosinophils # (auto) 0.1 10 ^3/uL (0-0.8); Hematocrit 30.6 % (36.0-46.0); Hemoglobin 9.9 g/dL (12.2-16.2); Lymphocytes # (auto) 1.8 10 ^3/uL (0.4-5.4); Lymphocytes % (auto) 21.7 % (10.0-50.0); Mean Corpuscular Hemoglobin 30.6 pg (28.0-32.0); Mean Corpuscular Hgb Conc. 32.3 g/dL (32.0-36.0); Mean Corpuscular Volume 94.7 fL (80.0-100.0); Monocytes # (auto) 0.9 10 ^3/uL (0-1.3); Monocytes % (auto) 10.7 % (0.0-12.0); Neutrophils # (auto) 5.5 10 ^3/uL (1.6-8.6); Neutrophils % (auto) 66.4 % (37.0-80.0); Platelet Count (auto) 392 10^3/uL (140-450); Red Blood Cells 3.23 10^6/uL (4.0-5.20); Red Cell Distribution Width 17.2 % (11.8-14.3); White Blood Cell 8.3 10^3/uL (4.4-10.8)
[2019-12-01 05:48] LABS: Albumin 2.6 g/dL (3.4-5.0); Calcium 8.4 mg/dL (8.5-10.1); Magnesium 2.3 mg/dL (1.6-2.6); Potassium 3.4 mmol/L (3.5-5.1)
[2019-12-01 05:52] LABS: BUN/Creatinine Ratio 25.4; Bilirubin, Total 0.3 mg/dL (0.2-1.0); Total Protein 6.7 g/dL (6.4-8.2)
[2019-12-01] MEDS: InsuLIN REG 1unit/0.01ml Soln (100units/ml) SC SCH ×4 (06:00→17:38)
[2019-12-01] MEDS: ALBUTEROL SULF 2.5 MG/0.5ML(0.5%) NEB SOLN NEB SCH ×3 (06:01→22:44)
[2019-12-01] MEDS: TOBRAMYCIN 300 MG/5 ML NEB SOLN NEB SCH ×2 (06:01→22:44)
[2019-12-01] MEDS: ACETYLCYSTEINE 10 %(100MG/ML) SOL 4ML NEB SCH ×3 (06:01→22:44)
[2019-12-01] MEDS: IPRATROPIUM BROM 0.5 MG/2.5ML INH SOL NEB SCH ×3 (06:01→22:44)
[2019-12-01] MEDS: ACCU-CHEK COMFORT CURVE STRIP VI SCH ×4 (06:29→17:38)
[2019-12-01 09:00] VITALS: BP 118/45
[2019-12-01] MEDS: PANTOPRAZOLE 40 MG/10 ML VIAL INJ IV SCH (10:03)
[2019-12-01] MEDS: FLORASTOR (S. BOULARDII) 250 MG CAP PO SCH ×2 (10:03→23:05)
[2019-12-01] MEDS: methylPREDNISolone SOD SUCC 40 MG/ML VL IV SCH (10:03)
[2019-12-01] MEDS: ENOXAPARIN SOD 40 MG/0.4 ML SYRINGE SC SCH (10:04)
[2019-12-01] MEDS: GENTAMICIN SULF 0.3% OPTH(EYE) OINT 3.5GM EACHEYE SCH ×2 (10:05→23:06)
[2019-12-01] MEDS: NYSTATIN TOPICAL POWDER 15GM TOP SCH ×2 (10:06→23:05)
[2019-12-01] MEDS: CIPROFLOXACIN 400MG/200ML 200 ML IV SCH ×2 (10:06→23:06)
[2019-12-01 17:00] VITALS: BP 112/55
[2019-12-01 21:30] VITALS: BP 120/36
[2019-12-02] MEDS: ACCU-CHEK COMFORT CURVE STRIP VI SCH ×4 (00:12→17:39)
[2019-12-02] MEDS: Jevity 1.2 Cal/Fiber 1 Liter GT SCH (02:55)
[2019-12-02 04:59] VITALS: BP 105/43
[2019-12-02] MEDS: ALBUTEROL SULF 2.5 MG/0.5ML(0.5%) NEB SOLN NEB SCH ×3 (05:56→22:34)
[2019-12-02] MEDS: IPRATROPIUM BROM 0.5 MG/2.5ML INH SOL NEB SCH ×3 (05:56→22:34)
[2019-12-02] MEDS: ACETYLCYSTEINE 10 %(100MG/ML) SOL 4ML NEB SCH ×3 (05:56→22:34)
[2019-12-02] MEDS: InsuLIN REG 1unit/0.01ml Soln (100units/ml) SC SCH ×4 (06:00→17:44)
[2019-12-02] MEDS: TOBRAMYCIN 300 MG/5 ML NEB SOLN NEB SCH ×2 (06:11→22:34)
[2019-12-02 09:30] VITALS: BP 102/40
[2019-12-02] MEDS: PANTOPRAZOLE 40 MG/10 ML VIAL INJ IV SCH (09:51)
[2019-12-02] MEDS: FLORASTOR (S. BOULARDII) 250 MG CAP PO SCH ×2 (09:51→21:55)
[2019-12-02] MEDS: CIPROFLOXACIN 400MG/200ML 200 ML IV SCH ×2 (09:51→21:55)
[2019-12-02] MEDS: ENOXAPARIN SOD 40 MG/0.4 ML SYRINGE SC SCH (09:51)
[2019-12-02] MEDS: methylPREDNISolone SOD SUCC 40 MG/ML VL IV SCH (09:52)
[2019-12-02] MEDS: NYSTATIN TOPICAL POWDER 15GM TOP SCH ×2 (09:52→22:18)
[2019-12-02] MEDS: GENTAMICIN SULF 0.3% OPTH(EYE) OINT 3.5GM EACHEYE SCH ×2 (09:52→22:17)
[2019-12-02 14:00] VITALS: BP 92/49
[2019-12-02 16:28] VITALS: BP 97/53
[2019-12-02 22:00] VITALS: BP 124/71
[2019-12-03] MEDS: ACCU-CHEK COMFORT CURVE STRIP VI SCH ×4 (00:39→17:35)
[2019-12-03] MEDS ORDERED: LEVE500T22 GT (02:51)
[2019-12-03] MEDS: InsuLIN REG 1unit/0.01ml Soln (100units/ml) SC SCH ×4 (05:47→17:34)
[2019-12-03] MEDS: ACETYLCYSTEINE 10 %(100MG/ML) SOL 4ML NEB SCH ×3 (06:44→22:19)
[2019-12-03] MEDS: ALBUTEROL SULF 2.5 MG/0.5ML(0.5%) NEB SOLN NEB SCH ×3 (06:44→22:18)
[2019-12-03] MEDS: IPRATROPIUM BROM 0.5 MG/2.5ML INH SOL NEB SCH ×3 (06:45→22:18)
[2019-12-03 06:52] VITALS: BP 122/70
[2019-12-03 09:00] VITALS: BP 104/60
[2019-12-03] MEDS: PANTOPRAZOLE 40 MG/10 ML VIAL INJ IV SCH (09:45)
[2019-12-03] MEDS: methylPREDNISolone SOD SUCC 40 MG/ML VL IV SCH (09:45)
[2019-12-03] MEDS: GENTAMICIN SULF 0.3% OPTH(EYE) OINT 3.5GM EACHEYE SCH ×2 (09:46→21:46)
[2019-12-03] MEDS: CIPROFLOXACIN 400MG/200ML 200 ML IV SCH ×2 (09:46→21:46)
[2019-12-03] MEDS: FLORASTOR (S. BOULARDII) 250 MG CAP PO SCH ×2 (10:00→21:46)
[2019-12-03] MEDS: ENOXAPARIN SOD 40 MG/0.4 ML SYRINGE SC SCH (10:00)
[2019-12-03] MEDS: NYSTATIN TOPICAL POWDER 15GM TOP SCH ×2 (10:00→21:46)
[2019-12-03] MEDS: TOBRAMYCIN 300 MG/5 ML NEB SOLN NEB SCH ×2 (10:35→22:41)
[2019-12-03 13:00] VITALS: BP 113/60
[2019-12-03 17:00] VITALS: BP 99/76
[2019-12-03 21:37] VITALS: BP 93/59
[2019-12-04] VITALS (7 sets, daily range): BP systolic 94–112; BP diastolic 42–63
[2019-12-04] MEDS: ACCU-CHEK COMFORT CURVE STRIP VI SCH ×4 (00:17→16:41)
[2019-12-04] MEDS: InsuLIN REG 1unit/0.01ml Soln (100units/ml) SC SCH ×4 (05:29→16:41)
[2019-12-04] MEDS: IPRATROPIUM BROM 0.5 MG/2.5ML INH SOL NEB SCH ×3 (07:53→22:27)
[2019-12-04] MEDS: ALBUTEROL SULF 2.5 MG/0.5ML(0.5%) NEB SOLN NEB SCH ×3 (07:53→22:27)
[2019-12-04] MEDS: ACETYLCYSTEINE 10 %(100MG/ML) SOL 4ML NEB SCH ×3 (07:53→22:27)
[2019-12-04] MEDS: methylPREDNISolone SOD SUCC 40 MG/ML VL IV SCH (08:29)
[2019-12-04] MEDS: PANTOPRAZOLE 40 MG/10 ML VIAL INJ IV SCH (08:29)
[2019-12-04] MEDS: CIPROFLOXACIN 400MG/200ML 200 ML IV SCH ×2 (08:29→21:16)
[2019-12-04] MEDS: FLORASTOR (S. BOULARDII) 250 MG CAP PO SCH ×2 (08:30→21:16)
[2019-12-04] MEDS: ENOXAPARIN SOD 40 MG/0.4 ML SYRINGE SC SCH (08:30)
[2019-12-04] MEDS: GENTAMICIN SULF 0.3% OPTH(EYE) OINT 3.5GM EACHEYE SCH ×2 (08:31→21:27)
[2019-12-04] MEDS: NYSTATIN TOPICAL POWDER 15GM TOP SCH ×2 (08:31→21:17)
[2019-12-04] MEDS: TOBRAMYCIN 300 MG/5 ML NEB SOLN NEB SCH ×2 (11:26→22:27)
[2019-12-04] MEDS ORDERED: IPRATROPIUM BROM 0.5 MG/2.5ML INH SOL NEB ONE (11:30)
[2019-12-04] MEDS ORDERED: ACETYLCYSTEINE 20%(200MG/ML) SOL 4ML NEB SCH (11:30)
[2019-12-04] MEDS ORDERED: ALBUTEROL SULF 2.5 MG/0.5ML(0.5%) NEB SOLN NEB ONE (11:30)
[2019-12-04] MEDS: Jevity 1.2 Cal/Fiber 1 Liter GT SCH (18:23)
[2019-12-05] MEDS: ACCU-CHEK COMFORT CURVE STRIP VI SCH ×4 (00:02→17:37)
[2019-12-05 05:10] VITALS: BP 112/61
[2019-12-05] MEDS: InsuLIN REG 1unit/0.01ml Soln (100units/ml) SC SCH ×4 (05:28→18:00)
[2019-12-05] MEDS: IPRATROPIUM BROM 0.5 MG/2.5ML INH SOL NEB SCH ×3 (06:26→22:08)
[2019-12-05] MEDS: ALBUTEROL SULF 2.5 MG/0.5ML(0.5%) NEB SOLN NEB SCH ×3 (06:26→22:08)
[2019-12-05] MEDS: ACETYLCYSTEINE 10 %(100MG/ML) SOL 4ML NEB SCH ×3 (06:26→22:09)
[2019-12-05 08:54] VITALS: BP 97/67
[2019-12-05] MEDS: TOBRAMYCIN 300 MG/5 ML NEB SOLN NEB SCH ×2 (09:39→22:09)
[2019-12-05] MEDS ORDERED: levETIRAcetam 500 MG TAB PO ONE (10:30)
[2019-12-05] MEDS: GENTAMICIN SULF 0.3% OPTH(EYE) OINT 3.5GM EACHEYE SCH (10:35)
[2019-12-05] MEDS: PANTOPRAZOLE 40 MG/10 ML VIAL INJ IV SCH (10:36)
[2019-12-05] MEDS: FLORASTOR (S. BOULARDII) 250 MG CAP PO SCH (10:36)
[2019-12-05] MEDS: CIPROFLOXACIN 400MG/200ML 200 ML IV SCH (10:36)
[2019-12-05] MEDS: ENOXAPARIN SOD 40 MG/0.4 ML SYRINGE SC SCH (10:36)
[2019-12-05] MEDS: NYSTATIN TOPICAL POWDER 15GM TOP SCH (10:37)
[2019-12-05 13:00] VITALS: BP 93/58
[2019-12-05 17:00] VITALS: BP 113/65
[2019-12-05 21:35] VITALS: BP 94/65
[2019-12-05] MEDS ORDERED: levETIRAcetam 500 MG TAB PO SCH (22:00)
[2019-12-06] MEDS: InsuLIN REG 1unit/0.01ml Soln (100units/ml) SC SCH
[2019-12-06] MEDS: CIPROFLOXACIN 400MG/200ML 200 ML IV SCH (00:20)
[2019-12-06] MEDS: GENTAMICIN SULF 0.3% OPTH(EYE) OINT 3.5GM EACHEYE SCH (00:21)
[2019-12-06] MEDS: NYSTATIN TOPICAL POWDER 15GM TOP SCH (00:21)
[2019-12-06] MEDS: ACCU-CHEK COMFORT CURVE STRIP VI SCH (00:23)
[2019-12-06] MEDS: FLORASTOR (S. BOULARDII) 250 MG CAP PO SCH (00:23)
== END 2019-12-06 01:10 | disposition short-term general hospital (02) | DRG 4 ==
LOC: ER 12:54 → EDBD 12:54 → TELE 12:55 → TELE-EAST 21:30 → DOU IN ICU 11-16 17:35 → TELE-CENTR 11-19 12:52 → DOU IN ICU 11-20 08:49 → ICU WEST 11-24 16:47 → TELE-CENTR 11-30 01:44
PROVIDERS: ADMIT Internal Medicine; ATTEND Internal Medicine
PROC: 0BJ08ZZ Inspection of Tracheobronchial Tree, Via Natural or Artificial Opening Endoscopic (ICD-10-PCS; 2019-11-26)
PROC: 0B9B8ZZ Drainage of Left Lower Lobe Bronchus, Via Natural or Artificial Opening Endoscopic (ICD-10-PCS; principal; 2019-11-26 11:15)
PROC: 0B110F4 Bypass Trachea to Cutaneous with Tracheostomy Device, Open Approach (ICD-10-PCS; 2019-11-27)
PROC: 0B968ZZ Drainage of Right Lower Lobe Bronchus, Via Natural or Artificial Opening Endoscopic (ICD-10-PCS; 2019-11-27)
PROC: 5A1945Z Respiratory Ventilation, 24-96 Consecutive Hours (ICD-10-PCS; 2019-11-27)
DX: J96.21 Acute and chronic respiratory failure with hypoxia (principal); G93.41 Metabolic encephalopathy; E44.0 Moderate protein-calorie malnutrition; E87.2 Acidosis; J44.1 Chronic obstructive pulmonary disease with (acute) exacerbation; J44.0 Chronic obstructive pulmonary disease with (acute) lower respiratory infection; N39.0 Urinary tract infection, site not specified; Q27.30 Arteriovenous malformation, site unspecified; Z99.11 Dependence on respirator [ventilator] status; J96.22 Acute and chronic respiratory failure with hypercapnia; D64.9 Anemia, unspecified; E03.9 Hypothyroidism, unspecified; E78.5 Hyperlipidemia, unspecified; E87.5 Hyperkalemia; E87.70 Fluid overload, unspecified; F03.90 Unspecified dementia, unspecified severity, without behavioral disturbance, psychotic disturbance, mood disturbance, and anxiety; G40.909 Epilepsy, unspecified, not intractable, without status epilepticus; G80.9 Cerebral palsy, unspecified; K21.9 Gastro-esophageal reflux disease without esophagitis; Z74.01 Bed confinement status; Z80.3 Family history of malignant neoplasm of breast; Z82.49 Family history of ischemic heart disease and other diseases of the circulatory system; Z86.73 Personal history of transient ischemic attack (TIA), and cerebral infarction without residual deficits; Z93.1 Gastrostomy status; Z99.81 Dependence on supplemental oxygen; Z90.49 Acquired absence of other specified parts of digestive tract; Z88.5 Allergy status to narcotic agent; Z88.1 Allergy status to other antibiotic agents; Z03.818 Encounter for observation for suspected exposure to other biological agents ruled out
CPT/HCPCS: 31720; 36415; 36600; 70450; 71045; 80048; 80053; 80307; 81001; 82805; 82962; 83036; 83540; 83550; 83605; 83735; 83880; 84100; 84484; 85007; 85025; 85027; 85379; 85610; 85730; 87040; 87070; 87077; 87081; 87086; 87186; 87205; 87493; 87804; 87880; 93005; 93970; 94002; 94003; 94640; 94660; 94668; 96361; 96365; 96375; 99291; A4605; A4618; C9113; G0378; J0171; J0330; J0696; J1100; J1815; J2001; J2250; J2543; J2704; J3480; J7042

== ENCOUNTER 2020-05-28 05:05 | Inpatient (IN) | payer OTHER ==
[~2020-05-28] VITALS: Ht 167.6 cm; Wt 74.2 kg
[~2020-05-28 05:05] MED LIST changes: -LEVE500T22 PEG; +LEVE500T32 PEG
[2020-05-28 07:01] LABS: Basophils # (auto) 0 10 ^3/uL (0-0.2); Basophils % (auto) 0.8 % (0.0-2.0); Eosinophils # (auto) 0.1 10 ^3/uL (0-0.8); Eosinophils % (auto) 2.4 % (0.0-7.0); Hematocrit 37.3 % (36.0-46.0); Hemoglobin 12.1 g/dL (12.2-16.2); Lymphocytes # (auto) 0.8 10 ^3/uL (0.4-5.4); Lymphocytes % (auto) 25.9 % (10.0-50.0); Mean Corpuscular Hemoglobin 28.4 pg (28.0-32.0); Mean Corpuscular Hgb Conc. 32.4 g/dL (32.0-36.0); Mean Corpuscular Volume 87.9 fL (80.0-100.0); Monocytes # (auto) 0.3 10 ^3/uL (0-1.3); Monocytes % (auto) 9.2 % (0.0-12.0); Neutrophils % (auto) 61.7 % (37.0-80.0); Nucleated Red Blood Cells % 0.1 %; Platelet Count (auto) 233 10^3/uL (140-450); Red Blood Cells 4.25 10^6/uL (4.0-5.20); Red Cell Distribution Width 17.5 % (11.8-14.3); White Blood Cell 3.3 10^3/uL (4.4-10.8)
[2020-05-28 07:13] LABS: Albumin 3.5 g/dL (3.4-5.0); Anion Gap 4 (5-15); Aspartate Aminotransferase 37 U/L (15-37); BUN/Creatinine Ratio 22.6; Blood Alcohol < 3.0 mg/dL (0-5); Blood Urea Nitrogen 14 mg/dL (7-18); Calcium 9.2 mg/dL (8.5-10.1); Carbon Dioxide 35 mmol/L (21-32); Chloride 100 mmol/L (98-107); GFR African American 128 mL/min; GFR Non-African American 106 mL/min; Glucose 68 mg/dL (74-106); Magnesium 2.1 mg/dL (1.6-2.6); Potassium 4.5 mmol/L (3.5-5.1); Sodium 139 mmol/L (136-145)
[2020-05-28 07:18] LABS: Alanine Aminotransferase 48 U/L (13-56); Alkaline Phosphatase 90 U/L (45-117); Bilirubin, Total 0.2 mg/dL (0.2-1.0); Partial Thromboplastin Time 28.5 sec (23.0-31.2); Total Protein 7.3 g/dL (6.4-8.2)
[2020-05-28] MEDS ORDERED: PIPERACILLIN-TAZOB 3.375GM 100 ML IV ONE (07:30)
[2020-05-28] MEDS ORDERED: SODIUM CHLORIDE 0.9% 1,000 ML IV ONE ×2 (07:30)
[2020-05-28 08:17] LABS: Urine Bacteria NONE SEEN /hpf (None Seen); Urine Blood Negative /uL (Negative); Urine Specific Gravity 1.012 (1.001-1.035); Urine WBC 34 /hpf (0 - 5)
[2020-05-28 08:31] LABS: Alcohol, Urine < 3.0 mg/dL (0-10); Amphetamine Screen, Urine NEGATIVE (NEGATIVE); Barbiturate Scree,Urine NEGATIVE (NEGATIVE); Benzodiazephine Screen, Urine NEGATIVE (NEGATIVE); Cannabinoid Screen, Urine NEGATIVE (NEGATIVE); Cocaine Screen, Urine NEGATIVE (NEGATIVE); Opiate Scree,Urine NEGATIVE (NEGATIVE); Phencyclidine Screen, Urine NEGATIVE (NEGATIVE)
[2020-05-28] MEDS ORDERED: AZITHROMYCIN 500MG/ 250ML 250 ML IV ONE (09:15)
[2020-05-28] MEDS ORDERED: cefTRIAXone 1GM/50ML D5W 50 ML IV ONE (09:15)
[2020-05-28] MEDS ORDERED: LEVE100S9 GT (10:28)
[2020-05-28] MEDS ORDERED: SULF-92 GT (10:28)
[2020-05-28] MEDS ORDERED: ALBU0.084 NEB (10:29)
[2020-05-28] MEDS ORDERED: MORPHINE SULF INJ 2 MG/ML SYRINGE 1ML IV PRN ×3 (10:30→10:45)
[2020-05-28] MEDS ORDERED: NITROGLYCERIN 0.4 MG SL TAB SL PRN ×2 (10:30→10:45)
[2020-05-28] MEDS ORDERED: IPR002IS NEB (10:30)
[2020-05-28] MEDS ORDERED: FERR-20 GT (10:35)
[2020-05-28] MEDS ORDERED: POLY33504 GT (10:41)
[2020-05-28] MEDS ORDERED: WHITOIN3 OP (10:41)
[2020-05-28 10:45] VITALS: BP 104/73
[2020-05-28] MEDS ORDERED: MEROPENEM 500MG IVPB 50 ML IV ONE (10:45)
[2020-05-28] MEDS ORDERED: MIDODRINE HCL 10 MG TAB PO ONE (10:45)
[2020-05-28] MEDS ORDERED: LORazepam 0.5 MG TAB PO PRN (10:45)
[2020-05-28] MEDS ORDERED: VITAMINS A & D (TOPICAL) OINT 5GM TOP ONE (10:45)
[2020-05-28] MEDS ORDERED: DOCUSATE SOD 100 MG CAP PO PRN (10:45)
[2020-05-28] MEDS ORDERED: ALUM & MAG HYDROX-SIMETH LIQ(MAALOX) 30 ML PO PRN (10:45)
[2020-05-28] MEDS ORDERED: ONDANSETRON HCL 4 MG/2 ML VIAL IV PRN (10:45)
[2020-05-28] MEDS ORDERED: SODIUM CHLORIDE 0.9% 1,000 ML IV SCH (10:45)
[2020-05-28] MEDS ORDERED: PANTOPRAZOLE 40 MG/10 ML VIAL INJ IV ONE (10:45)
[2020-05-28] MEDS ORDERED: HYDROcodone-ACET 5/325MG TAB PO PRN (10:45)
[2020-05-28] MEDS ORDERED: ACETAMINOPHEN 325 MG TAB PO PRN (10:45)
[2020-05-28] MEDS ORDERED: POLYETHYLENE GLYCOL 17 GM PWDR PO PRN (10:45)
[2020-05-28] MEDS ORDERED: VITAMINS A & D (TOPICAL) OINT 5GM TOP PRN (10:45)
[2020-05-28] MEDS ORDERED: DEXTROSE (50%) 50ML SYRG IV ONE (11:15)
[2020-05-28 11:22] LABS: Cholesterol 195 mg/dL (< 200); HDL Cholesterol 75 mg/dL (40-59); LDL Cholesterol 108 mg/dL (< 100); Triglycerides 54 mg/dL (< 150)
[2020-05-28] MEDS ORDERED: LACTATED RINGER'S 500 ML IV ONE (13:00)
[2020-05-28] MEDS: D5W/LACTATED RINGERS 1,000 ML IV SCH (13:15)
[2020-05-28] MEDS: ALBUTEROL SULF 2.5 MG/0.5ML(0.5%) NEB SOLN NEB PRN (13:44)
[2020-05-28] MEDS: IPRATROPIUM BROM 0.5 MG/2.5ML INH SOL NEB SCH ×3 (13:45→22:32)
[2020-05-28] MEDS: MEROPENEM 1GM IVPB 100 ML IV SCH ×2 (14:33→22:52)
[2020-05-28] MEDS: FERROUS SULFATE 300 MG/5 ML ORAL LIQ GT SCH ×2 (15:46→22:51)
[2020-05-28 17:56] VITALS: BP 101/63
[2020-05-28] MEDS: FUROSEMIDE 20 MG/2 ML VIAL IV SCH (19:00)
[2020-05-28] MEDS: MIDODRINE HCL 10 MG TAB PO SCH (19:00)
[2020-05-28 22:00] VITALS: BP 103/68
[2020-05-28] MEDS: BUDESONIDE (INHALATION) 0.5 MG/2 ML NEB NEB SCH (22:32)
[2020-05-28] MEDS: levETIRAcetam 500 MG TAB PO SCH (22:51)
[2020-05-28] MEDS: MONTELUKAST SODIUM 10 MG TAB PO SCH (22:52)
[2020-05-29] MEDS: D5W/LACTATED RINGERS 1,000 ML IV SCH (00:35)
[2020-05-29] MEDS: IPRATROPIUM BROM 0.5 MG/2.5ML INH SOL NEB SCH ×6 (02:22→22:28)
[2020-05-29 05:00] VITALS: BP 90/59
[2020-05-29] MEDS: FUROSEMIDE 20 MG/2 ML VIAL IV SCH (06:00)
[2020-05-29] MEDS: MEROPENEM 1GM IVPB 100 ML IV SCH ×3 (06:00→23:08)
[2020-05-29] MEDS: FERROUS SULFATE 300 MG/5 ML ORAL LIQ GT SCH ×3 (06:09→22:00)
[2020-05-29] MEDS: MIDODRINE HCL 10 MG TAB PO SCH ×3 (06:12→17:44)
[2020-05-29] MEDS ORDERED: LEVOTHYROXINE SODIUM 25 MCG TAB PO SCH (07:00)
[2020-05-29] MEDS: BUDESONIDE (INHALATION) 0.5 MG/2 ML NEB NEB SCH ×2 (07:09→19:15)
[2020-05-29] MEDS: ALBUTEROL SULF 2.5 MG/0.5ML(0.5%) NEB SOLN NEB PRN ×3 (07:09→14:56)
[2020-05-29 08:00] VITALS: BP 104/63
[2020-05-29] MEDS ORDERED: PANTOPRAZOLE 40 MG/10 ML VIAL INJ IV SCH (10:00)
[2020-05-29] MEDS ORDERED: VITAMINS A & D (TOPICAL) OINT 5GM TOP PRN (10:00)
[2020-05-29] MEDS ORDERED: ENOXAPARIN SOD 40 MG/0.4 ML SYRINGE SC SCH (10:00)
[2020-05-29] MEDS: levETIRAcetam 500 MG TAB PO SCH ×2 (11:08→23:09)
[2020-05-29] MEDS ORDERED: D5W/LACTATED RINGERS 1,000 ML IV SCH ×2 (12:30→13:00)
[2020-05-29] MEDS ORDERED: LORazepam 0.5 MG TAB PO PRN (12:30)
[2020-05-29 13:04] VITALS: BP 90/63
[2020-05-29] MEDS: ACETYLCYSTEINE 20%(200MG/ML) SOL 4ML NEB SCH ×2 (14:58→22:28)
[2020-05-29 17:17] VITALS: BP 100/54
[2020-05-29 22:00] VITALS: BP 94/57
[2020-05-29] MEDS: MONTELUKAST SODIUM 10 MG TAB PO SCH (22:00)
[2020-05-30 02:06] VITALS: BP 99/62
[2020-05-30 02:09] VITALS: BP 99/62
== END 2020-05-30 02:06 | disposition short-term general hospital (02) | DRG 177 ==
LOC: EDBD 05:05 → ER 05:05 → TELE 05:06 → TELE-WESTW 17:09
PROVIDERS: ADMIT Hospitalist; ATTEND Hospitalist
DX: J69.0 Pneumonitis due to inhalation of food and vomit (principal); J96.20 Acute and chronic respiratory failure, unspecified whether with hypoxia or hypercapnia; G93.41 Metabolic encephalopathy; N39.0 Urinary tract infection, site not specified; Z20.828 Contact with and (suspected) exposure to other viral communicable diseases; G40.909 Epilepsy, unspecified, not intractable, without status epilepticus; E03.9 Hypothyroidism, unspecified; D72.819 Decreased white blood cell count, unspecified; D64.9 Anemia, unspecified; E16.2 Hypoglycemia, unspecified; I95.89 Other hypotension; J44.9 Chronic obstructive pulmonary disease, unspecified; Z74.01 Bed confinement status; Z79.899 Other long term (current) drug therapy; Z80.3 Family history of malignant neoplasm of breast; Z93.0 Tracheostomy status; Z93.1 Gastrostomy status; Z91.81 History of falling; Z82.49 Family history of ischemic heart disease and other diseases of the circulatory system; Z88.1 Allergy status to other antibiotic agents
CPT/HCPCS: 36415; 51702; 70450; 71045; 71250; 74176; 80053; 80061; 80307; 80320; 81001; 83036; 83605; 83735; 83880; 84484; 85025; 85610; 85730; 87040; 87086; 94640; 96361; 96365; 96366; 96375; C9113; G0378; J2185; J2543

== ENCOUNTER 2022-07-24 17:16 | Emergency (ER) | payer OTHER ==
[~2022-07-24] VITALS: Ht 157.5 cm; Wt 75.0 kg
[~2022-07-24 17:16] MED LIST changes: +ALBU0.084 NEB; -ALBU18 IN; +FERR-20 GT; +IPR002IS NEB; -IPRIH INH; +LEVE100S9 GT; -LEVE500T32 PEG; +MONT-8 GT; -MONT10TA34 GT; +POLY33504 GT; +SULF800T8 GT; +WHITOIN3 OP
[2022-07-24] MEDS ORDERED: CEFEPIME 1GM/ 50ML 50 ML IV ONE (20:30)
[2022-07-24 21:03] LABS: Basophils # (auto) 0 10 ^3/uL (0-0.2); Basophils % (auto) 0.6 % (0.0-2.0); Eosinophils # (auto) 0.1 10 ^3/uL (0-0.8); Eosinophils % (auto) 1.9 % (0.0-7.0); Hematocrit 35.3 % (36.0-46.0); Hemoglobin 11.2 g/dL (12.2-16.2); Lymphocytes # (auto) 1.1 10 ^3/uL (0.4-5.4); Lymphocytes % (auto) 24.1 % (10.0-50.0); Mean Corpuscular Hgb Conc. 31.6 g/dL (32.0-36.0); Mean Corpuscular Volume 88.4 fL (80.0-100.0); Monocytes # (auto) 0.3 10 ^3/uL (0-1.3); Monocytes % (auto) 7.4 % (0.0-12.0); Neutrophils # (auto) 3.1 10 ^3/uL (1.6-8.6); Nucleated Red Blood Cells % 0.1 %; Red Blood Cells 3.99 10^6/uL (4.0-5.20); Red Cell Distribution Width 15.3 % (11.8-14.3); White Blood Cell 4.7 10^3/uL (4.4-10.8)
[2022-07-24 21:18] LABS: Albumin 3.1 g/dL (3.4-5.0); Calcium 9.6 mg/dL (8.5-10.1)
[2022-07-24 21:21] LABS: BUN/Creatinine Ratio 31.6; Bilirubin, Total 0.2 mg/dL (0.2-1.0); Total Protein 7.4 g/dL (6.4-8.2)
[2022-07-25 03:19] VITALS: BP 121/83
== END 2022-07-25 03:39 | disposition short-term general hospital (02) ==
LOC: EDBD 17:16 → ER 17:16
DX: J18.9 Pneumonia, unspecified organism (principal); R09.02 Hypoxemia; Q28.2 Arteriovenous malformation of cerebral vessels; Z88.1 Allergy status to other antibiotic agents; Z20.822 Contact with and (suspected) exposure to COVID-19
CPT/HCPCS: 36415; 36600; 71045; 80053; 82805; 85025; 87426; 87804; 93005; 96365; 96366; 99285; J0692

== ENCOUNTER 2023-01-15 17:00 | Emergency (ER) | payer OTHER ==
[~2023-01-15] VITALS: Ht 157.5 cm; Wt 100.0 kg
[~2023-01-15 17:00] MED LIST changes: -FERR-20 GT; +FERR325T24 GT; -LEVE100S9 GT; +LEVE5SOL GT; +SULF1TAB75 GT; -SULF800T8 GT; +WHIT1OIN OP; -WHITOIN3 OP
[2023-01-15 17:56] LABS: Basophils # (auto) 0 10 ^3/uL (0-0.2); Basophils % (auto) 0.4 % (0.0-2.0); Eosinophils # (auto) 0.1 10 ^3/uL (0-0.8); Eosinophils % (auto) 3.1 % (0.0-7.0); Hematocrit 31.4 % (36.0-46.0); Lymphocytes % (auto) 26.3 % (10.0-50.0); Mean Corpuscular Hemoglobin 29.5 pg (28.0-32.0); Mean Corpuscular Hgb Conc. 31.7 g/dL (32.0-36.0); Monocytes # (auto) 0.2 10 ^3/uL (0-1.3); Monocytes % (auto) 6.4 % (0.0-12.0); Neutrophils # (auto) 2.3 10 ^3/uL (1.6-8.6); Neutrophils % (auto) 63.8 % (37.0-80.0); Nucleated Red Blood Cells % 0.2 %; Red Blood Cells 3.38 10^6/uL (4.0-5.20); Red Cell Distribution Width 14.9 % (11.8-14.3); White Blood Cell 3.7 10^3/uL (4.4-10.8)
[2023-01-15 18:19] LABS: Albumin 2.9 g/dL (3.4-5.0); Anion Gap 3 (5-15); Blood Alcohol < 3.0 mg/dL (0-5); Blood Urea Nitrogen 15 mg/dL (7-18); Calcium 8.4 mg/dL (8.5-10.1); Carbon Dioxide 40 mmol/L (21-32); Chloride 97 mmol/L (98-107); Glucose 84 mg/dL (74-106); Lipase 85 U/L (73-393); Magnesium 2.3 mg/dL (1.6-2.6); Potassium 4.9 mmol/L (3.5-5.1); Sodium 140 mmol/L (136-145)
[2023-01-15 18:22] LABS: Alanine Aminotransferase 44 U/L (13-56); Alkaline Phosphatase 95 U/L (45-117); Aspartate Aminotransferase 46 U/L (15-37); BUN/Creatinine Ratio 41.7 (10.0-20.0); Bilirubin, Total < 0.1 mg/dL (0.2-1.0); CRP High Sensitivity 0.51 mg/dL (< 0.3); GFR African American 237 mL/min; GFR Non-African American 196 mL/min; Total Protein 6.4 g/dL (6.4-8.2)
[2023-01-15] MEDS ORDERED: DEXTROSE (50%) 50ML SYRG IV ONE (20:45)
[2023-01-15 21:09] VITALS: BP 102/66
[2023-01-15] MEDS ORDERED: IOHEXOL 350 MG/ML 100ML IJ ONE (21:21)
[2023-01-15 21:25] LABS: Urine Amorphous Crystal FEW /hpf (None Seen); Urine Bacteria FEW /hpf (None Seen); Urine Blood Negative /uL (Negative); Urine Specific Gravity 1.005 (1.001-1.035); Urine WBC 8 /hpf (0 - 5)
[2023-01-15] MEDS ORDERED: DEXTROSE 10% 250 ML IV ONE (21:25)
[2023-01-16 00:34] VITALS: BP 118/65
== END 2023-01-16 01:13 | disposition short-term general hospital (02) ==
LOC: ER 17:00 → EDBD 17:00 → ER 01-16 01:10
DX: Q28.2 Arteriovenous malformation of cerebral vessels (principal); J44.9 Chronic obstructive pulmonary disease, unspecified; E78.5 Hyperlipidemia, unspecified; E16.2 Hypoglycemia, unspecified; Z94.9 Transplanted organ and tissue status, unspecified; Z90.89 Acquired absence of other organs; Z90.49 Acquired absence of other specified parts of digestive tract; Z20.822 Contact with and (suspected) exposure to COVID-19
CPT/HCPCS: 36415; 36600; 70450; 71045; 72125; 74177; 80053; 80320; 81001; 82140; 82805; 83605; 83690; 83735; 83880; 84484; 85025; 86141; 87040; 87077; 87086; 87088; 87186; 87426; 93005; 96374; 99285; Q9967

== ENCOUNTER 2023-05-12 22:38 | Inpatient (IN) | payer OTHER ==
[~2023-05-12] VITALS: Ht 157.5 cm; Wt 76.7 kg
[2023-05-12 22:46] VITALS: PULSE 143; RESP 20; O2SAT 98
[2023-05-12 22:50] VITALS: BP 114/72; PULSE 110; RESP 20; O2SAT 100
[2023-05-12] MEDS ORDERED: ONDANSETRON HCL 4 MG/2 ML VIAL IV ONE (23:00)
[2023-05-12] MEDS ORDERED: SODIUM BICARBONATE 8.4 % INJ 50ML VIAL IV ONE (23:00)
[2023-05-12] MEDS ORDERED: SODIUM CHLORIDE 0.9% 2,100 ML IV ONE (23:00)
[2023-05-12] MEDS ORDERED: CLINDAMYCIN 600MG IV 50 ML IV ONE (23:00)
[2023-05-12] MEDS ORDERED: VANCOMYCIN PER PHARMACY 0 MG IV SCH (23:00)
[2023-05-12] MEDS ORDERED: ALBUMIN 25% 100 ML IV ONE (23:00)
[2023-05-12] MEDS ORDERED: PANTOPRAZOLE 40 MG/10 ML VIAL INJ IV ONE (23:00)
[2023-05-12 23:04] LABS: Eosinophils # (auto) 0.2 10 ^3/uL (0-0.8); Mean Corpuscular Hgb Conc. 30.7 g/dL (32.0-36.0); Monocytes # (auto) 0.9 10 ^3/uL (0-1.3); Red Blood Cells 3.56 10^6/uL (4.0-5.20)
[2023-05-12 23:06] LABS: Basophils # (auto) 0.1 10 ^3/uL (0-0.2); Basophils % (auto) 0.6 % (0.0-2.0); Eosinophils % (auto) 1.4 % (0.0-7.0); Hematocrit 33.6 % (36.0-46.0); Hemoglobin 10.3 g/dL (12.2-16.2); Lymphocytes # (auto) 7.2 10 ^3/uL (0.4-5.4); Lymphocytes % (auto) 53.7 % (10.0-50.0); Mean Corpuscular Volume 94.3 fL (80.0-100.0); Monocytes % (auto) 6.7 % (0.0-12.0); Neutrophils % (auto) 37.6 % (37.0-80.0); Nucleated Red Blood Cells % 0.6 %; Red Cell Distribution Width 15.8 % (11.8-14.3); White Blood Cell 13.4 10^3/uL (4.4-10.8)
[2023-05-12 23:20] LABS: INR 1.07 (0.9-1.15); Partial Thromboplastin Time 21.7 SEC (24.5-34.5); Prothrombin Time 11.2 sec (9.3-11.8)
[2023-05-12 23:24] LABS: Alanine Aminotransferase 127 U/L (7-40); Alkaline Phosphatase 96 U/L (46-116); Aspartate Aminotransferase 138 U/L (13-40); BUN/Creatinine Ratio 15.6 (10.0-20.0); Blood Urea Nitrogen 12 mg/dL (9-23); Chloride 100 mmol/L (98-107); Glucose 286 mg/dL (74-106); Sodium 146 mmol/L (136-145)
[2023-05-12 23:25] LABS: Albumin 3.4 g/dL (3.2-4.8); Bilirubin, Total < 0.2 mg/dL (0.2-1.0); Total Protein 6.2 g/dL (5.7-8.2)
[2023-05-12 23:37] LABS: Anion Gap 5.99999 (5-15)
[2023-05-12 23:40] LABS: Calcium 17.7 mg/dL (8.7-10.4); Carbon Dioxide > 40 mmol/L (20-30); Potassium 5.6 mmol/L (3.5-5.1)
[2023-05-12] MEDS: PIPERACILLIN-TAZOB 3.375GM 100 ML IV SCH (23:57)
[2023-05-13] VITALS (91 sets, daily range): BP systolic 94–137; BP diastolic 44–80; PULSE 60–87; RESP 10–24; TEMP 97.5–99; O2SAT 94–100
[2023-05-13 00:20] LABS: Lactic Acid w/Reflex 10.9 mmol/L (0.4-2.0)
[2023-05-13 00:42] LABS: Chloride 103 mmol/L (98-107); Potassium 3.7 mmol/L (3.5-5.1); Sodium 145 mmol/L (136-145)
[2023-05-13 00:43] LABS: Anion Gap 6 (5-15); Calcium 9.3 mg/dL (8.7-10.4); Carbon Dioxide 36 mmol/L (20-30)
[2023-05-13 00:44] LABS: Base Excess 5.1 mmol/L (-2.0-2.0)
[2023-05-13 00:48] LABS: BUN/Creatinine Ratio 21.5 (10.0-20.0); Blood Urea Nitrogen 14 mg/dL (9-23); Glucose 133 mg/dL (74-106)
[2023-05-13] MEDS ORDERED: MORPHINE SULFATE INJ 2 MG/ml SYRG IV PRN (02:00)
[2023-05-13] MEDS ORDERED: NITROGLYCERIN 0.4 MG SL TAB SL PRN (02:00)
[2023-05-13] MEDS ORDERED: DEXTROSE (50%) 50ML SYRG IV PRN (02:45)
[2023-05-13] MEDS ORDERED: FUROSEMIDE 40 MG/4 ML VIAL IV ONE (02:45)
[2023-05-13 03:36] LABS: Urine Bacteria MOD /hpf (None Seen); Urine Blood Negative /uL (Negative); Urine Clarity HAZY (Clear); Urine Color Colorless (Yellow); Urine Protein, UAD 1+ (Negative); Urine Specific Gravity 1.014 (1.001-1.035); Urine Urobilinogen Normal (Negative); Urine WBC 37 /hpf (0 - 5)
[2023-05-13 03:46] LABS: Amphetamine Screen, Urine Neg (NEGATIVE); Benzodiazephine Screen, Urine Neg (NEGATIVE); Cannabinoid Screen, Urine Neg (NEGATIVE); Cocaine Screen, Urine Neg (NEGATIVE); Opiate Scree,Urine Neg (NEGATIVE); Phencyclidine Screen, Urine Neg (NEGATIVE)
[2023-05-13 03:54] LABS: Barbiturate Scree,Urine Neg (NEGATIVE)
[2023-05-13 03:57] LABS: Basophils # (auto) 0 10 ^3/uL (0-0.2); Basophils % (auto) 0.1 % (0.0-2.0); Eosinophils # (auto) 0 10 ^3/uL (0-0.8); Eosinophils % (auto) 0.2 % (0.0-7.0); Hemoglobin 10.1 g/dL (12.2-16.2); Lymphocytes # (auto) 0.4 10 ^3/uL (0.4-5.4); Lymphocytes % (auto) 4.2 % (10.0-50.0); Mean Corpuscular Hemoglobin 29.6 pg (28.0-32.0); Mean Corpuscular Hgb Conc. 32.5 g/dL (32.0-36.0); Mean Corpuscular Volume 91.1 fL (80.0-100.0); Monocytes # (auto) 0.6 10 ^3/uL (0-1.3); Monocytes % (auto) 6.4 % (0.0-12.0); Neutrophils # (auto) 8.2 10 ^3/uL (1.6-8.6); Neutrophils % (auto) 89.1 % (37.0-80.0); Nucleated Red Blood Cells % 0.1 %; Red Cell Distribution Width 15.3 % (11.8-14.3); White Blood Cell 9.2 10^3/uL (4.4-10.8)
[2023-05-13 04:13] LABS: Alanine Aminotransferase 215 U/L (7-40); Albumin 3.7 g/dL (3.2-4.8); Alkaline Phosphatase 90 U/L (46-116); Anion Gap 3 (5-15); Aspartate Aminotransferase 240 U/L (13-40); BUN/Creatinine Ratio 24.7 (10.0-20.0); Blood Urea Nitrogen 18 mg/dL (9-23); Calcium 9.2 mg/dL (8.7-10.4); Carbon Dioxide 38 mmol/L (20-30); Chloride 103 mmol/L (98-107); Glucose 154 mg/dL (74-106); Potassium 4.1 mmol/L (3.5-5.1); Sodium 144 mmol/L (136-145)
[2023-05-13 04:14] LABS: Bilirubin, Total 0.3 mg/dL (0.2-1.0); Total Protein 6.2 g/dL (5.7-8.2)
[2023-05-13] MEDS: MIDAZOLAM DRIP 50 mg/50mL 50 ML IV SCH (05:45)
[2023-05-13] MEDS ORDERED: InsuLIN REG 1unit/0.01ml Soln (100units/ml) SC SCH (06:00)
[2023-05-13] MEDS ORDERED: ACCU-CHEK COMFORT CURVE STRIP VI SCH (06:00)
[2023-05-13] MEDS: PIPERACILLIN-TAZOB 3.375GM 100 ML IV SCH ×3 (06:08→18:31)
[2023-05-13] MEDS: levETIRAcetam 500 MG/5ML ORAL SOLN UD GT SCH ×3 (06:09→21:15)
[2023-05-13] MEDS: LEVOTHYROXINE SODIUM 25 MCG TAB GT SCH (06:33)
[2023-05-13 08:29] LABS: Base Excess 9.8 mmol/L (-2.0-2.0)
[2023-05-13] MEDS ORDERED: FUROSEMIDE 40 MG/4 ML VIAL IV SCH (10:00)
[2023-05-13 10:12] LABS: Triglycerides 58 mg/dL (< 150)
[2023-05-13 10:13] LABS: LDL Cholesterol 88 mg/dL (< 100)
[2023-05-13 10:14] LABS: Cholesterol 143 mg/dL (< 200); HDL Cholesterol 44 mg/dL (40-59)
[2023-05-13] MEDS: FAMOTIDINE (10MG/ML) 2ML VL IV SCH ×2 (10:30→21:16)
[2023-05-13] MEDS: HEPARIN SODIUM (PORCINE) 5000 UNITS/ML 1ML VIAL SC SCH ×2 (10:31→21:16)
[2023-05-13] MEDS: MIDODRINE HCL 10 MG TAB GT SCH ×2 (13:55→21:15)
[2023-05-13] MEDS ORDERED: VANCOMYCIN PER PHARMACY 0 MG IV SCH (17:30)
[2023-05-13] MEDS ORDERED: POLYSOL7 OP (18:30)
[2023-05-13] MEDS: LINEZOLID 600MG/300ML 300 ML IV SCH (18:31)
[2023-05-13] MEDS: ALBUTEROL SULF 2.5 MG/0.5ML(0.5%) NEB SOLN NEB SCH ×2 (19:26→22:58)
[2023-05-13] MEDS: ACETYLCYSTEINE 20%(200MG/ML) SOL 4ML NEB SCH ×2 (19:27→22:58)
[2023-05-13] MEDS: MUPIROCIN 2% OINT 15gm or 22gm FOR MRSA NARES EACHNOSTRI SCH (21:14)
[2023-05-13] MEDS: DRONEDARONE HCL 400 MG TAB GT SCH (21:15)
[2023-05-14] VITALS (60 sets, daily range): BP systolic 86–124; BP diastolic 45–78; PULSE 67–96; RESP 10–14; TEMP 95–99.1; O2SAT 97–100
[2023-05-14] MEDS: PIPERACILLIN-TAZOB 3.375GM 100 ML IV SCH ×2 (00:44→05:19)
[2023-05-14] MEDS: ALBUTEROL SULF 2.5 MG/0.5ML(0.5%) NEB SOLN NEB SCH ×6 (02:11→22:09)
[2023-05-14] MEDS: ACETYLCYSTEINE 20%(200MG/ML) SOL 4ML NEB SCH ×6 (02:11→22:09)
[2023-05-14 04:21] LABS: Basophils # (auto) 0 10 ^3/uL (0-0.2); Basophils % (auto) 0.3 % (0.0-2.0); Eosinophils # (auto) 0 10 ^3/uL (0-0.8); Hematocrit 27.8 % (36.0-46.0); Hemoglobin 9.3 g/dL (12.2-16.2); Lymphocytes % (auto) 10.3 % (10.0-50.0); Mean Corpuscular Hgb Conc. 33.5 g/dL (32.0-36.0); Mean Corpuscular Volume 89.7 fL (80.0-100.0); Monocytes # (auto) 0.6 10 ^3/uL (0-1.3); Neutrophils # (auto) 8.4 10 ^3/uL (1.6-8.6); Neutrophils % (auto) 83.4 % (37.0-80.0); Red Cell Distribution Width 15.3 % (11.8-14.3); White Blood Cell 10.1 10^3/uL (4.4-10.8)
[2023-05-14 04:24] LABS: Anion Gap 4 (5-15); Carbon Dioxide 36 mmol/L (20-30); Chloride 102 mmol/L (98-107); Sodium 142 mmol/L (136-145)
[2023-05-14 04:25] LABS: Calcium 9.1 mg/dL (8.7-10.4)
[2023-05-14 04:30] LABS: BUN/Creatinine Ratio 19.7 (10.0-20.0); Blood Urea Nitrogen 14 mg/dL (9-23); Glucose 129 mg/dL (74-106)
[2023-05-14] MEDS: LINEZOLID 600MG/300ML 300 ML IV SCH (05:12)
[2023-05-14] MEDS: MIDAZOLAM DRIP 50 mg/50mL 50 ML IV SCH (05:12)
[2023-05-14] MEDS: MIDODRINE HCL 10 MG TAB GT SCH ×3 (05:18→21:30)
[2023-05-14] MEDS: levETIRAcetam 500 MG/5ML ORAL SOLN UD GT SCH ×3 (05:18→21:27)
[2023-05-14] MEDS: LEVOTHYROXINE SODIUM 25 MCG TAB GT SCH (05:19)
[2023-05-14] MEDS: FAMOTIDINE (10MG/ML) 2ML VL IV SCH ×2 (09:33→21:27)
[2023-05-14] MEDS: POTASSIUM CHL 20MEQ/100ML 100 ML IV SCH ×2 (09:33→11:27)
[2023-05-14] MEDS: MUPIROCIN 2% OINT 15gm or 22gm FOR MRSA NARES EACHNOSTRI SCH ×2 (09:34→21:28)
[2023-05-14] MEDS: HEPARIN SODIUM (PORCINE) 5000 UNITS/ML 1ML VIAL SC SCH ×2 (09:39→21:47)
[2023-05-14] MEDS: DRONEDARONE HCL 400 MG TAB GT SCH ×2 (09:45→21:27)
[2023-05-14] MEDS ORDERED: VANCOMYCIN PER PHARMACY 0 MG IV SCH (14:45)
[2023-05-14] MEDS ORDERED: cefTRIAXone 1GM/50ML D5W 50 ML IV ONE (15:15)
[2023-05-14] MEDS ORDERED: VANCOMYCIN 1GM/250ML 250 ML IV ONE ×3 (16:00→16:45)
[2023-05-14] MEDS: FIBERSOURCE GT SCH ×2 (18:01→21:28)
[2023-05-14] MEDS: BUDESONIDE (INHALATION) 0.5 MG/2 ML NEB NEB SCH (18:21)
[2023-05-14] MEDS ORDERED: CALCIUM CHLOR(10%) 100MG/ML 10ML SYRINGE IV ONE (21:49)
[2023-05-14] MEDS ORDERED: EPINEPHrine HCL 1 MG/10 ML SYRG IV ONE (21:49)
[2023-05-14] MEDS ORDERED: NALOXONE HCL 1MG/ML 2ML SYRINGE IV ONE (21:49)
[2023-05-14] MEDS ORDERED: SODIUM BICARBONATE 8.4% INJ 50ML SYRINGE IV ONE (21:49)
[2023-05-15] VITALS (49 sets, daily range): BP systolic 98–150; BP diastolic 50–84; PULSE 63–101; RESP 9–19; TEMP 96.8–100.4; O2SAT 96–100
[2023-05-15] MEDS: ALBUTEROL SULF 2.5 MG/0.5ML(0.5%) NEB SOLN NEB SCH ×6 (02:15→22:14)
[2023-05-15] MEDS: ACETYLCYSTEINE 20%(200MG/ML) SOL 4ML NEB SCH ×6 (02:16→22:14)
[2023-05-15 04:48] LABS: Basophils # (auto) 0 10 ^3/uL (0-0.2); Basophils % (auto) 0.3 % (0.0-2.0); Eosinophils # (auto) 0 10 ^3/uL (0-0.8); Eosinophils % (auto) 0.1 % (0.0-7.0); Hematocrit 27.5 % (36.0-46.0); Hemoglobin 8.8 g/dL (12.2-16.2); Lymphocytes % (auto) 11.6 % (10.0-50.0); Mean Corpuscular Hemoglobin 29.1 pg (28.0-32.0); Monocytes # (auto) 0.7 10 ^3/uL (0-1.3); Monocytes % (auto) 8.7 % (0.0-12.0); Neutrophils # (auto) 6.7 10 ^3/uL (1.6-8.6); Neutrophils % (auto) 79.3 % (37.0-80.0); Red Blood Cells 3.02 10^6/uL (4.0-5.20); Red Cell Distribution Width 15.5 % (11.8-14.3); White Blood Cell 8.5 10^3/uL (4.4-10.8)
[2023-05-15 04:55] LABS: Alanine Aminotransferase 131 U/L (7-40); Albumin 3.7 g/dL (3.2-4.8); Alkaline Phosphatase 80 U/L (46-116); Anion Gap 3 (5-15); Aspartate Aminotransferase 123 U/L (13-40); BUN/Creatinine Ratio 21.4 (10.0-20.0); Bilirubin, Total < 0.2 mg/dL (0.2-1.0); Blood Urea Nitrogen 12 mg/dL (9-23); Calcium 9.1 mg/dL (8.5-10.1); Carbon Dioxide 36 mmol/L (20-30); Chloride 104 mmol/L (98-107); Glucose 110 mg/dL (74-106); Potassium 3.8 mmol/L (3.5-5.1); Sodium 143 mmol/L (136-145); Total Protein 6.4 g/dL (5.7-8.2)
[2023-05-15] MEDS: MIDAZOLAM DRIP 50 mg/50mL 50 ML IV SCH (05:16)
[2023-05-15] MEDS: FIBERSOURCE GT SCH ×4 (05:24→22:00)
[2023-05-15] MEDS: LEVOTHYROXINE SODIUM 25 MCG TAB GT SCH (05:25)
[2023-05-15] MEDS: levETIRAcetam 500 MG/5ML ORAL SOLN UD GT SCH ×3 (05:25→22:33)
[2023-05-15] MEDS: MIDODRINE HCL 10 MG TAB GT SCH ×3 (05:25→22:26)
[2023-05-15 06:23] LABS: Base Excess 5.7 mmol/L (-2.0-2.0)
[2023-05-15] MEDS: FAMOTIDINE (10MG/ML) 2ML VL IV SCH ×2 (08:50→22:26)
[2023-05-15] MEDS: DRONEDARONE HCL 400 MG TAB GT SCH ×2 (08:51→22:26)
[2023-05-15] MEDS ORDERED: cefTRIAXone 1GM/50ML D5W 50 ML IV SCH (09:00)
[2023-05-15] MEDS: HEPARIN SODIUM (PORCINE) 5000 UNITS/ML 1ML VIAL SC SCH ×2 (09:10→22:34)
[2023-05-15] MEDS: VANCOMYCIN 1GM/250ML 250 ML IV SCH ×2 (09:53→22:32)
[2023-05-15] MEDS: MUPIROCIN 2% OINT 15gm or 22gm FOR MRSA NARES EACHNOSTRI SCH ×2 (09:54→22:00)
[2023-05-15] MEDS: BUDESONIDE (INHALATION) 0.5 MG/2 ML NEB NEB SCH ×2 (09:59→22:14)
[2023-05-15] MEDS ORDERED: MEROPENEM 1GM IVPB 100 ML IV ONE (11:30)
[2023-05-15] MEDS ORDERED: ACETAMINOPHEN 500 MG TAB PO PRN (11:30)
[2023-05-15] MEDS ORDERED: MEROPENEM 1GM IVPB 100 ML IV SCH (20:00)
[2023-05-16] VITALS (60 sets, daily range): BP systolic 92–145; BP diastolic 53–84; PULSE 63–96; RESP 0–46; TEMP 96.3–99; O2SAT 98–100
[2023-05-16] MEDS: ALBUTEROL SULF 2.5 MG/0.5ML(0.5%) NEB SOLN NEB SCH ×6 (02:18→22:41)
[2023-05-16] MEDS: ACETYLCYSTEINE 20%(200MG/ML) SOL 4ML NEB SCH ×6 (02:18→22:41)
[2023-05-16 04:27] LABS: Basophils # (auto) 0 10 ^3/uL (0-0.2); Basophils % (auto) 0.2 % (0.0-2.0); Eosinophils # (auto) 0.1 10 ^3/uL (0-0.8); Eosinophils % (auto) 0.9 % (0.0-7.0); Hematocrit 27.7 % (36.0-46.0); Hemoglobin 8.9 g/dL (12.2-16.2); Lymphocytes # (auto) 1.5 10 ^3/uL (0.4-5.4); Lymphocytes % (auto) 21.4 % (10.0-50.0); Mean Corpuscular Hemoglobin 29.1 pg (28.0-32.0); Mean Corpuscular Hgb Conc. 32.2 g/dL (32.0-36.0); Mean Corpuscular Volume 90.1 fL (80.0-100.0); Monocytes # (auto) 0.9 10 ^3/uL (0-1.3); Monocytes % (auto) 12.5 % (0.0-12.0); Neutrophils # (auto) 4.7 10 ^3/uL (1.6-8.6); Nucleated Red Blood Cells % 0.1 %; Red Blood Cells 3.07 10^6/uL (4.0-5.20); Red Cell Distribution Width 15.2 % (11.8-14.3); White Blood Cell 7.2 10^3/uL (4.4-10.8)
[2023-05-16 04:45] LABS: Alanine Aminotransferase 108 U/L (7-40); Albumin 3.7 g/dL (3.2-4.8); Alkaline Phosphatase 81 U/L (46-116); Anion Gap 3 (5-15); Aspartate Aminotransferase 120 U/L (13-40); BUN/Creatinine Ratio 32.7 (10.0-20.0); Bilirubin, Total 0.2 mg/dL (0.2-1.0); Blood Urea Nitrogen 16 mg/dL (9-23); Calcium 9.1 mg/dL (8.5-10.1); Carbon Dioxide 36 mmol/L (20-30); Chloride 103 mmol/L (98-107); Glucose 102 mg/dL (74-106); Potassium 3.8 mmol/L (3.5-5.1); Sodium 142 mmol/L (136-145); Total Protein 6.3 g/dL (5.7-8.2)
[2023-05-16] MEDS: MIDAZOLAM DRIP 50 mg/50mL 50 ML IV SCH (05:45)
[2023-05-16] MEDS: LEVOTHYROXINE SODIUM 25 MCG TAB GT SCH (06:23)
[2023-05-16] MEDS: FIBERSOURCE GT SCH ×4 (06:25→21:26)
[2023-05-16] MEDS: levETIRAcetam 500 MG/5ML ORAL SOLN UD GT SCH ×3 (06:25→21:27)
[2023-05-16] MEDS: BUDESONIDE (INHALATION) 0.5 MG/2 ML NEB NEB SCH ×2 (06:31→18:39)
[2023-05-16] MEDS: MIDODRINE HCL 10 MG TAB GT SCH ×3 (06:56→21:24)
[2023-05-16 08:13] LABS: Base Excess 6.7 mmol/L (-2.0-2.0)
[2023-05-16] MEDS: VANCOMYCIN 1GM/250ML 250 ML IV SCH ×2 (09:52→21:23)
[2023-05-16] MEDS ORDERED: CEFTRIAXONE SODIUM 2 GM in D5W 5% 100 ML IV SCH (10:00)
[2023-05-16] MEDS: FAMOTIDINE (10MG/ML) 2ML VL IV SCH ×2 (12:16→21:24)
[2023-05-16] MEDS: DRONEDARONE HCL 400 MG TAB GT SCH ×2 (12:16→21:24)
[2023-05-16] MEDS: MUPIROCIN 2% OINT 15gm or 22gm FOR MRSA NARES EACHNOSTRI SCH ×2 (12:16→21:25)
[2023-05-16] MEDS: HEPARIN SODIUM (PORCINE) 5000 UNITS/ML 1ML VIAL SC SCH ×2 (12:17→21:30)
[2023-05-16] MEDS ORDERED: MEROPENEM 1GM IVPB 100 ML IV ONE (14:00)
[2023-05-16 18:04] LABS: Base Excess 10.6 mmol/L (-2.0-2.0)
[2023-05-16] MEDS: MEROPENEM 1GM IVPB 100 ML IV SCH (21:29)
[2023-05-17] VITALS (59 sets, daily range): BP systolic 118–152; BP diastolic 70–97; PULSE 66–89; RESP 1–66; TEMP 97–98.8; O2SAT 86–100
[2023-05-17] MEDS: MIDAZOLAM DRIP 50 mg/50mL 50 ML IV SCH (02:04)
[2023-05-17] MEDS: ACETYLCYSTEINE 20%(200MG/ML) SOL 4ML NEB SCH ×6 (02:13→22:37)
[2023-05-17] MEDS: ALBUTEROL SULF 2.5 MG/0.5ML(0.5%) NEB SOLN NEB SCH ×6 (02:13→22:37)
[2023-05-17 03:45] LABS: Basophils # (auto) 0 10 ^3/uL (0-0.2); Basophils % (auto) 0.2 % (0.0-2.0); Eosinophils # (auto) 0 10 ^3/uL (0-0.8); Eosinophils % (auto) 0.3 % (0.0-7.0); Hemoglobin 10.1 g/dL (12.2-16.2); Lymphocytes # (auto) 0.9 10 ^3/uL (0.4-5.4); Lymphocytes % (auto) 10.1 % (10.0-50.0); Mean Corpuscular Hemoglobin 29.1 pg (28.0-32.0); Mean Corpuscular Hgb Conc. 32.5 g/dL (32.0-36.0); Mean Corpuscular Volume 89.7 fL (80.0-100.0); Monocytes # (auto) 0.8 10 ^3/uL (0-1.3); Monocytes % (auto) 8.8 % (0.0-12.0); Neutrophils # (auto) 7.2 10 ^3/uL (1.6-8.6); Neutrophils % (auto) 80.6 % (37.0-80.0); Nucleated Red Blood Cells % 0.1 %; Red Blood Cells 3.46 10^6/uL (4.0-5.20); Red Cell Distribution Width 15.2 % (11.8-14.3)
[2023-05-17 04:02] LABS: Alanine Aminotransferase 86 U/L (7-40); Albumin 3.9 g/dL (3.2-4.8); Anion Gap 3 (5-15); Aspartate Aminotransferase 105 U/L (13-40); Bilirubin, Total 0.2 mg/dL (0.2-1.0); Blood Urea Nitrogen 11 mg/dL (9-23); Calcium 9.2 mg/dL (8.7-10.4); Carbon Dioxide 38 mmol/L (20-30); Chloride 98 mmol/L (98-107); Glucose 127 mg/dL (74-106); Sodium 139 mmol/L (136-145); Total Protein 6.8 g/dL (5.7-8.2)
[2023-05-17 04:36] LABS: Alkaline Phosphatase 97 U/L (46-116)
[2023-05-17] MEDS: levETIRAcetam 500 MG/5ML ORAL SOLN UD GT SCH ×3 (05:41→22:35)
[2023-05-17] MEDS: MEROPENEM 1GM IVPB 100 ML IV SCH ×3 (05:41→22:33)
[2023-05-17] MEDS: MIDODRINE HCL 10 MG TAB GT SCH ×3 (05:41→22:33)
[2023-05-17] MEDS: FIBERSOURCE GT SCH ×4 (05:41→22:54)
[2023-05-17] MEDS: LEVOTHYROXINE SODIUM 25 MCG TAB GT SCH (05:42)
[2023-05-17] MEDS: BUDESONIDE (INHALATION) 0.5 MG/2 ML NEB NEB SCH ×2 (06:24→19:03)
[2023-05-17] MEDS: VANCOMYCIN 1GM/250ML 250 ML IV SCH ×2 (08:59→20:51)
[2023-05-17] MEDS: DRONEDARONE HCL 400 MG TAB GT SCH ×2 (09:53→22:34)
[2023-05-17] MEDS: FAMOTIDINE (10MG/ML) 2ML VL IV SCH ×2 (09:53→22:37)
[2023-05-17] MEDS: MUPIROCIN 2% OINT 15gm or 22gm FOR MRSA NARES EACHNOSTRI SCH ×2 (09:54→22:37)
[2023-05-17] MEDS: HEPARIN SODIUM (PORCINE) 5000 UNITS/ML 1ML VIAL SC SCH ×2 (09:55→22:41)
[2023-05-17 10:38] LABS: Base Excess 9.2 mmol/L (-2.0-2.0)
[2023-05-17 12:47] LABS: Base Excess 11.9 mmol/L (-2.0-2.0)
[2023-05-17] MEDS ORDERED: METOCLOPRAMIDE HCL 5MG/ml INJ 2ml VIAL IV ONE (14:45)
[2023-05-17] MEDS ORDERED: POLYETHYLENE GLYCOL 17 GM PWDR PO ONE (14:45)
[2023-05-17] MEDS: METOCLOPRAMIDE HCL 5MG/ml INJ 2ml VIAL IV SCH (22:39)
[2023-05-18] VITALS (88 sets, daily range): BP systolic 116–155; BP diastolic 68–93; PULSE 61–99; RESP 8–20; TEMP 96.6–98.6; O2SAT 91–100
[2023-05-18] MEDS: ACETYLCYSTEINE 20%(200MG/ML) SOL 4ML NEB SCH ×5 (02:16→18:44)
[2023-05-18] MEDS: ALBUTEROL SULF 2.5 MG/0.5ML(0.5%) NEB SOLN NEB SCH ×5 (02:16→18:45)
[2023-05-18 04:20] LABS: Basophils # (auto) 0 10 ^3/uL (0-0.2); Basophils % (auto) 0.2 % (0.0-2.0); Eosinophils # (auto) 0.1 10 ^3/uL (0-0.8); Eosinophils % (auto) 0.6 % (0.0-7.0); Hematocrit 31.3 % (36.0-46.0); Lymphocytes # (auto) 0.8 10 ^3/uL (0.4-5.4); Lymphocytes % (auto) 9.4 % (10.0-50.0); Mean Corpuscular Hemoglobin 29.1 pg (28.0-32.0); Monocytes # (auto) 0.9 10 ^3/uL (0-1.3); Monocytes % (auto) 9.7 % (0.0-12.0); Neutrophils # (auto) 7.1 10 ^3/uL (1.6-8.6); Neutrophils % (auto) 80.1 % (37.0-80.0); Red Blood Cells 3.44 10^6/uL (4.0-5.20); Red Cell Distribution Width 14.9 % (11.8-14.3); White Blood Cell 8.8 10^3/uL (4.4-10.8)
[2023-05-18 04:33] LABS: Alanine Aminotransferase 66 U/L (7-40); Albumin 3.9 g/dL (3.2-4.8); Alkaline Phosphatase 97 U/L (46-116); Anion Gap 5 (5-15); Aspartate Aminotransferase 77 U/L (13-40); BUN/Creatinine Ratio 21.8 (10.0-20.0); Blood Urea Nitrogen 12 mg/dL (9-23); Calcium 9.3 mg/dL (8.7-10.4); Carbon Dioxide 39 mmol/L (20-30); Chloride 98 mmol/L (98-107); Glucose 118 mg/dL (74-106); Potassium 4.1 mmol/L (3.5-5.1); Sodium 142 mmol/L (136-145)
[2023-05-18 04:34] LABS: Bilirubin, Total 0.2 mg/dL (0.2-1.0)
[2023-05-18] MEDS: LEVOTHYROXINE SODIUM 25 MCG TAB GT SCH (05:44)
[2023-05-18] MEDS: MIDODRINE HCL 10 MG TAB GT SCH ×3 (05:44→21:36)
[2023-05-18] MEDS: MIDAZOLAM DRIP 50 mg/50mL 50 ML IV SCH (05:45)
[2023-05-18] MEDS: levETIRAcetam 500 MG/5ML ORAL SOLN UD GT SCH ×3 (05:48→21:36)
[2023-05-18] MEDS: MEROPENEM 1GM IVPB 100 ML IV SCH ×3 (05:49→22:00)
[2023-05-18] MEDS: METOCLOPRAMIDE HCL 5MG/ml INJ 2ml VIAL IV SCH ×3 (05:51→21:35)
[2023-05-18] MEDS: FIBERSOURCE GT SCH ×4 (05:52→21:36)
[2023-05-18] MEDS: BUDESONIDE (INHALATION) 0.5 MG/2 ML NEB NEB SCH (06:15)
[2023-05-18 08:55] LABS: Base Excess 13.4 mmol/L (-2.0-2.0)
[2023-05-18] MEDS: VANCOMYCIN 1GM/250ML 250 ML IV SCH ×2 (09:11→21:26)
[2023-05-18] MEDS ORDERED: POLYETHYLENE GLYCOL 17 GM PWDR PO SCH (10:00)
[2023-05-18] MEDS: FAMOTIDINE (10MG/ML) 2ML VL IV SCH ×2 (10:08→21:35)
[2023-05-18] MEDS: DRONEDARONE HCL 400 MG TAB GT SCH ×2 (10:08→21:35)
[2023-05-18] MEDS: MUPIROCIN 2% OINT 15gm or 22gm FOR MRSA NARES EACHNOSTRI SCH (10:10)
[2023-05-18] MEDS: HEPARIN SODIUM (PORCINE) 5000 UNITS/ML 1ML VIAL SC SCH ×2 (10:37→21:36)
[2023-05-18] MEDS ORDERED: LACTULOSE 20Gm/30ML SOLN PO ONE (17:00)
== END 2023-05-18 23:15 | disposition short-term general hospital (02) | DRG 870 ==
LOC: EDUNIT# 22:38 → EDBD 22:38 → ER 22:38 → TELE 05-13 01:59 → ICU WEST 05-13 02:59
PROVIDERS: ADMIT Nurse Practitioner Family; ATTEND Internal Medicine
PROC: 5A1955Z Respiratory Ventilation, Greater than 96 Consecutive Hours (ICD-10-PCS; principal; 2023-05-12)
PROC: 0BH17EZ Insertion of Endotracheal Airway into Trachea, Via Natural or Artificial Opening (ICD-10-PCS; 2023-05-12)
PROC: 5A12012 Performance of Cardiac Output, Single, Manual (ICD-10-PCS; 2023-05-13)
PROC: 05HD33Z Insertion of Infusion Device into Right Cephalic Vein, Percutaneous Approach (ICD-10-PCS; 2023-05-13)
PROC: B54MZZA Ultrasonography of Right Upper Extremity Veins, Guidance (ICD-10-PCS; 2023-05-13)
DX: A41.02 Sepsis due to Methicillin resistant Staphylococcus aureus (principal); G93.41 Metabolic encephalopathy; J69.0 Pneumonitis due to inhalation of food and vomit; I46.9 Cardiac arrest, cause unspecified; J96.21 Acute and chronic respiratory failure with hypoxia; I48.20 Chronic atrial fibrillation, unspecified; N39.0 Urinary tract infection, site not specified; J95.851 Ventilator associated pneumonia; Z99.11 Dependence on respirator [ventilator] status; J44.0 Chronic obstructive pulmonary disease with (acute) lower respiratory infection; G93.1 Anoxic brain damage, not elsewhere classified; E03.9 Hypothyroidism, unspecified; E66.01 Morbid (severe) obesity due to excess calories; B96.1 Klebsiella pneumoniae [K. pneumoniae] as the cause of diseases classified elsewhere; B96.20 Unspecified Escherichia coli [E. coli] as the cause of diseases classified elsewhere; G40.909 Epilepsy, unspecified, not intractable, without status epilepticus; B96.4 Proteus (mirabilis) (morganii) as the cause of diseases classified elsewhere; R74.8 Abnormal levels of other serum enzymes; R79.89 Other specified abnormal findings of blood chemistry; Y84.8 Other medical procedures as the cause of abnormal reaction of the patient, or of later complication, without mention of misadventure at the time of the procedure; Y92.89 Other specified places as the place of occurrence of the external cause; Z80.3 Family history of malignant neoplasm of breast; Z82.49 Family history of ischemic heart disease and other diseases of the circulatory system; Z93.1 Gastrostomy status; Z68.30 Body mass index [BMI] 30.0-30.9, adult; Z88.5 Allergy status to narcotic agent; Z88.1 Allergy status to other antibiotic agents; Z93.0 Tracheostomy status; Z87.01 Personal history of pneumonia (recurrent); Z79.899 Other long term (current) drug therapy; Z90.49 Acquired absence of other specified parts of digestive tract
CPT/HCPCS: 36415; 36600; 70450; 71045; 71250; 74176; 80048; 80053; 80061; 80202; 80307; 81001; 82553; 82805; 82962; 83036; 83605; 83690; 83735; 83880; 84443; 84484; 85025; 85610; 85730; 86850; 86900; 86901; 87040; 87070; 87077; 87081; 87086; 87147; 87186; 87205; 93306; 94002; 94003; 94640; C9113; G0378; J0696; J2185; J2250; J2405; J2543; J3480; J3490; J7060; P9047